=== PATIENT | male | born 1950 | race Caucasian/White ===

== ENCOUNTER 2019-05-19 16:40 | Emergency (ER) | payer MEDICARE, SELFPAY ==
[2019-05-19] VITALS (33 sets, daily range): BP systolic 111–157; BP diastolic 72–116; PULSE 43–103; RESP 13–20; TEMP 37.1; O2SAT 97–100
[2019-05-19] MEDS: diphenhydrAMINE 50 MG/ML VIAL (17:11)
--- NOTE | 2019-05-19 17:13 | W.ED.GENAD ---
Discharge Plan Disposition Patient Disposition: [facility] Condition: Stable Discharge Details Chief Complaint: Allergic Clinical Impression: Symptomatic bradycardia, Anaphylactic reaction to bee sting Primary Care Provider: Samy Resendez ED Provider: Padmini Aguiar Home Meds and New Rx's Prescriptions: No Action multivitamin [Daily Multi-Vitamin] 1 EACH tablet 1 ea PO DAILY Qty: 1 RF: 0 ginkgo biloba leaf extract 120 MG capsule 120 mg PO DAILY Qty: 1 RF: 0 omega 3-baq-hlb-fish oil [Fish Oil] 1 EACH capsule,delayed release(DR/EC) 1 ea PO DAILY Qty: 1 RF: 0 echinacea 380 MG capsule 1 tab PO DAILY RF: 0 ginkgo biloba 40 MG tablet 1 tab PO DAILY RF: 0 saw palmetto 160 MG capsule 1 tab PO DAILY RF: 0 multivitamin 1 EACH capsule 1 cap PO DAILY RF: 0 obgsc-9j-ghg-epa-fish oil 1 EACH capsule,delayed release(DR/EC) 1 tab PO DAILY RF: 0 amoxicillin 500 MG capsule 500 mg PO Q8H Qty: 12 RF: 0 Discharge Data Discharge Date/Time-TO BE ENTERED AT DEPARTURE: 05/19/19 19:35 Medical Decision Making 68-year-old male with no diagnosed past medical history who presents with allergic reaction after stung by 6 piece just prior to arrival. Complaining of upper lip swelling as well as rash to torso, arms and legs. Denies any nausea vomiting or shortness of breath. Heart rate on arrival 70s, shortly after arrival heart rate decreased to 36. Patient placed on monitor. QRS appeared wide. Heart rate occasionally increased to 70s. Patient was given a dose of atropine. EKG obtained which noted a rate of 77 and right bundle branch block. Compared to previous EKG NOVEMBER 2017, QRS morphology appears different throughout and appears widened mainly in V1 V2. Patient admitted to feeling weak and shaky. He remained awake and able to answer questions. Review of easy visit note from November 2017 noted that patient had asymptomatic bradycardia. As patient complains of intermittent dizziness with exertion over the past 2 weeks, suspect the patient has been bradycardic for some time now, and his current symptoms may have been induced or bradycardia worsened by an anaphylactic reaction peer Patient moved to room 2. 2 large-bore IVs placed. We will do stat cardiac work-up, portable chest x-ray. Patient also given Solu-Medrol, Benadryl. 1800 --heart rate decreased again to 30s. Blood pressure stable. Patient was given another dose of atropine. Heart rate increased to 90s and 100s and occasionally had more dips down into the 30s and 40s. His blood pressure has remained stable and asymptomatic. Labs reviewed and unremarkable. Chest x-ray negative. Case discussed with [facility] cardiology -do not recommend any additional epinephrine or atropine unless patient becomes hypotensive or significantly symptomatic. With initial discussion with [facility], there were no appropriate beds available. They called back shortly after and they were able to make a bed available. Accepting physician Dr. Fletcher. Patient noted to have multiple episodes of rate variation from 30s to 70s. When heart rate in the 30s, he does admit to feeling slightly dizzy. Blood pressure has remained stable. Medical Records Medical records reviewed: Yes I reviewed the patient's medical records. Imaging Data Radiologic Study: Radiologist's impression: XR Chest, 1 View EXAM DATE/TIME: 05/19/2019 5:13 PM CLINICAL HISTORY: 68 years old, male; Patient HX: Bradycardia S/P bee sting. TECHNIQUE: Imaging protocol: XR of the chest, 1 view. COMPARISON: No relevant prior studies available. FINDINGS: Lungs: Unremarkable. No consolidation. Pleural space: Unremarkable. No pleural effusion. No pneumothorax. Heart/Mediastinum: Unremarkable. No cardiomegaly. Bones/joints: Unremarkable. IMPRESSION: No acute findings. Lab Data Lab results reviewed: Yes I reviewed the patient's lab results. Laboratory Tests Range/Units 05/19/19 05/19/19 17:25 17:25 WBC (4.4-10.8) k/cumm 5.83 RBC (4.50-6.00) m/cumm 5.22 Hgb (13.5-17.5) g/dL 17.2 Hct (40.0-50.0) % 49.4 MCV (80-95) fL 94.6 MCH (27.0-33.0) pg 33.0 MCHC (32.0-36.0) g/dL 34.8 RDW (11.8-14.1) % 12.2 Plt Count (130-400) x1000/uL 205 MPV (8.0-11.0) fL 9.2 Immature Gran % 0.2 Neutrophils % 36.9 Lymphocytes % 49.9 Monocytes % 11.7 Eosinophils % 1.0 Basophils % 0.3 Absolute Neutrophils (1.2-6.7) k/cumm 2.15 Absolute Lymphocytes (1.2-3.4) k/cumm 2.91 Absolute Monocytes (0.11-0.7) k/cumm 0.68 Absolute Eosinophils (0.0-0.7) k/cumm 0.06 Absolute Basophils (0.0-0.2) k/cumm 0.02 Sodium (136-145) mmol/L 137 Potassium (3.5-5.1) mmol/L 3.7 Chloride (98-107) mmol/L 100 Carbon Dioxide (21.0-32.0) mmol/L 23.2 Anion Gap (3-11) mmol/L 13.8 H BUN (7-18) mg/dL 18 Creatinine (0.70-1.30) mg/dL 1.03 Estimated GFR/1.73 m2 (mL/min/1.73m2) >= 60.00 Glucose (70-100) mg/dL 89 Calcium (8.5-10.1) mg/dL 8.7 Magnesium (1.8-2.4) mg/dL 1.9 Total Bilirubin (0.2-1.0) mg/dL 1.0 AST (15-37) U/L 25 ALT (12-78) U/L 26 Alkaline Phosphatase (46-116) U/L 50 Troponin I (0.00-0.06) ng/mL < 0.05 Total Protein (6.4-8.2) g/dL 7.6 Albumin (3.4-5.0) g/dL 2.5 L ECG Data Attestation: I personally reviewed and interpreted this ECG (s) as follows: Interpretation: Rate of 77, sinus, right bundle branch block. No acute ST elevation or depression. QRS 216 which is increased from previous EKG and a different morphology to the QRS noted in lead II, 3, aVF V4, V5 and V6. Previous EKG November 2017 noted a rate of 44 with a QRS of 128 and and previous right bundle branch block. HPI General Mode of arrival: ambulatory. Date/Time Provider Initiated Documentation: 08/22/19 17:10. Limitations to Documentation: no limitations. Information obtained by: patient. HPI Narrative: Patient is a 68-year-old male with no diagnosed past medical history who presents for evaluation status post bee sting. Patient states he was done approximately 30 minutes ago by 6 hornets or wasps on his right back. He states shortly after he developed upper lip swelling and hives. He denies any vomiting or shortness of breath. Patient also states that he has had intermittent dizziness over the past few weeks that is occurred with exertion. He states he has not seen any medical provider for this. Related Data Home Medications Medication Instructions Recorded Confirmed amoxicillin 500 mg PO Q8H #12 capsule 12/19/17 12/31/17 echinacea 1 tab PO DAILY 12/19/17 12/31/17 ginkgo biloba 1 tab PO DAILY 12/19/17 12/31/17 multivitamin 1 cap PO DAILY 12/19/17 12/31/17 nkbly-9q-jcy-epa-fish oil 1 tab PO DAILY 12/19/17 12/31/17 saw palmetto 1 tab PO DAILY 12/19/17 12/31/17 ginkgo biloba leaf extract 120 mg PO DAILY #1 01/01/18 multivitamin [Multi-Vitamin Daily] 1 ea PO DAILY #1 01/01/18 omega 3-klm-qvd-fish oil [Fish Oil 1 ea PO DAILY #1 01/01/18 1,200 Mg Softgel] Previous Rx's Medication Instructions Recorded amoxicillin 500 mg PO Q8H #12 capsule 12/19/17 Allergies Allergy/AdvReac Type Severity Reaction Status Date / Time cephalexin Allergy Unverified 12/31/17 12:06 General Stated Complaint: Allergic DAKOTA: 2 Review of Systems Review of Systems All systems reviewed & are unremarkable except as noted in HPI and below Constitutional Reports as per HPI, Denies chills and Denies fever(s) Eyes Denies blurry vision ENT Denies dizziness, Denies sore throat and Denies throat swelling Cardiovascular Denies chest pain and Denies dyspnea Respiratory Denies cough and Denies dyspnea Gastrointestinal Denies abdominal pain, Denies diarrhea and Denies vomiting Genitourinary Denies hematuria and Denies dysuria Musculoskeletal Denies back pain and Denies numbness Integumentary/Breasts Denies lesions and Denies rash Neurologic Denies dizziness, Denies focal weakness and Denies numbness Allergic/Immunologic Denies throat swelling [facility], [facility] Medical History No significant past medical history (Acute) Surgical History No significant past surgical history (Acute) Family History Mother No problems noted. Father No problems noted. Sister No problems noted. Sister No problems noted. Brother No problems noted. Daughter No problems noted. Daughter No problems noted. Daughter No problems noted. Daughter No problems noted. Social History Smoking/Tobacco Use Status: Former Tobacco Use Substance use type: marijuana Do you feel safe in your relationship?: Yes Exam Const General: cooperative and no acute distress Orientation: alert and awake HENMT Head: normal to inspection Ears: hearing grossly normal bilaterally, external ears normal and TM's normal bilaterally General nose exam: external nose normal Face and sinus: normal facial exam Mouth: oral mucosae normal Teeth and gingiva: dentition normal Throat: posterior oropharynx normal Eyes General: appearance normal, both eyes and all related structures Eyelids: eyelids normal EOM: EOM intact bilaterally Neck Neck: normal visual inspection Lymphatic: no lymphadenopathy noted Chest Chest: normal inspection of the chest Resp Effort & Inspection: normal respiratory effort and able to speak in complete sentences Auscultation: clear to auscultation bilaterally Cardio Rate: regular rate Rhythm: regular rhythm GI Inspection: normal to inspection Palpation: soft, not firm, no guarding, no hepatosplenomegaly, no masses and nontender Auscultation: normal bowel sounds Back/Spine/Pelvis Back: no CVA tenderness Skin General skin exam: no rashes or lesions noted Neuro General: alert and awake Cognition: normal cognition Speech: speech normal Gait: normal gait Motor: muscle tone normal throughout Sensory Exam: no sensory deficits noted Extrem General: normal to inspection, full ROM and normal capillary refill Psych Appearance: grossly normal Mental Status: mental status grossly normal Speech and Movement: speech and movement normal Affect: normal affect Thought Process: normal Course Vital Signs Temperature 98.8 F 05/19/19 17:04 Pulse 47 L 05/19/19 17:04 Respiratory Rate 16 08/22/19 17:04 Blood Pressure 147/99 H 05/19/19 17:04 Pulse Oximetry 100 05/19/19 17:04 Temperature 98.8 F 05/19/19 17:04 Temperature Source Temporal Artery Scan 05/19/19 17:04 Pulse 47 L 05/19/19 17:04 Respiratory Rate 16 05/19/19 17:04 Respiratory Effort Non-Labored 05/19/19 17:07 Respiratory Pattern Normal 05/19/19 17:07 Blood Pressure 147/99 H 05/19/19 17:04 Pulse Oximetry 100 05/19/19 17:04 Oxygen Delivery Method Room Air 05/19/19 17:04 Oxygen Flow Rate 0 05/19/19 17:04 Pain Level 6 05/19/19 17:04 Critical Care Time Critical Care Time: Yes Total Critical Care Time: 40
--- NOTE | 2019-05-19 17:15 | DI.RAD_ITS ---
SYMPTOM/DIAGNOSIS: BRADYCARDIA, S/P BEE STING, R/O ACUTE DISEASE CHEST: Portable AP view. No priors. The heart is normal in size. The lungs are clear. The mediastinal structures and pleura appear intact. CONCLUSION: Normal chest.
[2019-05-19] MEDS: EPINEPHrine 0.3 MG KIT IM (17:20)
[2019-05-19] MEDS: Atropine 1 MG/10 ML SYRINGE 0.5 MG IVP ×2 (17:20→17:56)
[2019-05-19] MEDS: methylPREDNISolone SUCC 125 MG VIAL (17:20)
[2019-05-19] MEDS: FAMOTIDINE 20 MG/50 ML BAG (17:22)
--- NOTE | 2019-05-19 17:30 | NUR.NOTE ---
Nursing Note: IV access established in both AC's with large bore IV catheters. 20G right AC and 20G left AC. Blood drawn and sent to lab
--- NOTE | 2019-05-19 17:33 | DI.VRAD_ITS ---
EXAM: XR Chest, 1 View EXAM DATE/TIME: 05/19/2019 5:13 PM CLINICAL HISTORY: 68 years old, male; Patient HX: Bradycardia S/P bee sting. TECHNIQUE: Imaging protocol: XR of the chest, 1 view. COMPARISON: No relevant prior studies available. FINDINGS: Lungs: Unremarkable. No consolidation. Pleural space: Unremarkable. No pleural effusion. No pneumothorax. Heart/Mediastinum: Unremarkable. No cardiomegaly. Bones/joints: Unremarkable. IMPRESSION: No acute findings. Dictated and Authenticated by: Lion Kirkland MD. Ordering:TANNER Washington MD
[2019-05-19 17:46] LABS: Abs Immature Grans 0.01 k/cumm (0.0-0.09); Absolute Basophil Count 0.02 k/cumm (0.0-0.2); Absolute Eosinophil Count 0.06 k/cumm (0.0-0.7); Absolute Lymphocyte Count 2.91 k/cumm (1.2-3.4); Absolute Monocyte Count 0.68 k/cumm (0.11-0.7); Absolute Neutrophil Count 2.15 k/cumm (1.2-6.7); Basophils % 0.3; HCT 49.4 % (40.0-50.0); HGB 17.2 g/dL (13.5-17.5); Immature Grans % 0.2; Lymphocytes % 49.9; Mean Corp. HGB Concentration 34.8 g/dL (32.0-36.0); Mean Corpuscular Volume 94.6 fL (80-95); Mean Platelet Volume 9.2 fL (8.0-11.0); Monocytes % 11.7; Neutrophils % 36.9; Platelet Count 205 x1000/uL (130-400); RBC 5.22 m/cumm (4.50-6.00); RBC Distribution Width 12.2 % (11.8-14.1); White Blood Cell Count 5.83 k/cumm (4.4-10.8)
[2019-05-19 18:01] LABS: ALT 26 U/L (12-78); AST 25 U/L (15-37); Albumin 2.5 g/dL (3.4-5.0); Alkaline Phosphatase 50 U/L (46-116); Anion Gap 13.8 mmol/L (3-11); BUN 18 mg/dL (7-18); CO2 23.2 mmol/L (21.0-32.0); CREATININE 1.03 mg/dL (0.70-1.30); Calcium 8.7 mg/dL (8.5-10.1); Chloride 100 mmol/L (98-107); Glucose 89 mg/dL (70-100); Magnesium 1.9 mg/dL (1.8-2.4); Potassium 3.7 mmol/L (3.5-5.1); Sodium 137 mmol/L (136-145); Total Protein 7.6 g/dL (6.4-8.2)
[2019-05-19 18:02] LABS: Troponin I < 0.05 ng/mL (0.00-0.06)
--- NOTE | 2019-05-19 20:03 | NUR.NOTE ---
Attempted to call report to [facility], spoke to BARNEY Boles who states she will return call.Nursing Note:
--- NOTE | 2019-05-19 20:13 | NUR.NOTE ---
Telephone report given to BARNEY Boles at [facility]. Nursing Note:
== END 2019-05-19 19:35 | disposition short-term general hospital (02) ==
PROVIDERS: Emergency Provider Physician Assistant; PCP Family Medicine
DX: T63.461A Toxic effect of venom of wasps, accidental (unintentional), initial encounter (principal); T78.2XXA Anaphylactic shock, unspecified, initial encounter; R00.1 Bradycardia, unspecified; R21 Rash and other nonspecific skin eruption; Z91.030 Bee allergy status
CPT/HCPCS: 80053; 93005; 96365; 96366; 96372; 96375; 96376; 99285; 71045; 83735; 84484; 85025; 93010; J0171; J1200; J2930

== ENCOUNTER 2019-07-11 00:53 | Emergency (ER) | payer MEDICARE, SELFPAY ==
[2019-07-11 01:14] VITALS: BP 168/92; PULSE 55; RESP 14; TEMP 36.8; O2SAT 96
--- NOTE | 2019-07-11 01:16 | ED.GENADUL_ITS ---
Discharge Plan Disposition Patient Disposition: HOME Condition: Stable Discharge Details Chief Complaint: Chest Pain Clinical Impression: Pneumothorax on left, Left rib fracture Primary Care Provider: Samy Resendez ED Provider: Christiano Hedrick Home Meds and New Rx's Prescriptions: New oxycodone 5 mg tablet 5 mg PO Q6H PRN (Reason: pain) Qty: 12 RF: 0 Continued epinephrine [EpiPen 2-Hang] 0.3 mg/0.3 mL auto-injector 0.3 mg IM ONCE Qty: 2 RF: 2 multivitamin [Daily Multi-Vitamin] 1 EACH tablet 1 ea PO DAILY Qty: 1 RF: 0 Discharge Instructions Instructions: Rib Fracture (ED) Additional Instructions: you should be contacted with an appointment with general surgery if you have severe worsening of pain or difficulty breathing return to the emergency department you can take 1000mg tylenol and 600mg ibuprofen every 6 hours for pain as needed Medical Decision Making 69 yo male who had [place] [facility] [place] due to heart block and had negative stress testing comes in with complaints of chest pain. He has no prior hx of [place], stent or bypassing per pt. He states he went to bed feeling well and then woke up with sharp left sided chest pain in the mid axillary line that is worse with deep breathing. He does have clear lungs on exam and denie cough or fevers. ECG shows no ischemic findings, will send troponin. Will obtain CTA to eval for PE given pleuritic nature of his chest pain and moderate wells score labs unremarkable, CTA shows no pe or dissection but does have left 7th rib fracture with very small ptx per vrad. He now remembers that he fell while walking up a hill He is sleeping on reassessment and only has pain with deep breaths. I recommended the patient either be admitted for observation or stay here and have f/u xray but he would rather be d/c'd and return if his pain worsens or has more shortness of breath. He understands the significance of his imaging results and the possibliity of it becoming larger and potentially causing or disablity and has the capacity to make his own decisions. I did speak with Dr. Schwarz from general surgery who states she has sent people with small ptx's from trauma home but would want to follow up with him this week. Pt understands he needs to return to the ED immediately if worsening pain or shortness of breath Differential Diagnosis Differential Diagnosis: acs, ptx, pe Medical Records Medical records reviewed: Yes I reviewed the patient's medical records. Imaging Data Radiologic Study: Attestation: I personally reviewed and interpreted this imaging study as follows: Imaging: CT Scan Radiologist's impression: IMPRESSION: 1. Left seventh rib fracture. Mild subcutaneous emphysema left lateral chest wall. 2. Less than 5% left pneumothorax. Lab Data Lab results reviewed: Yes I reviewed the patient's lab results. ECG Data Attestation: I personally reviewed and interpreted this ECG (s) as follows: Prior ECG tracings: not available for review Interpretation: sinus rhythm, rate of 60, pr 218, no acute st t wave ischemic findings HPI General Mode of arrival: ambulatory . Date/Time Provider Initiated Documentation: 07/11/19 01:03 . Limitations to Documentation: no limitations . Information obtained by: patient . History of Present Illness 69 year old M presents to the emergency department with the chief complaint of chest pain, described as severe, Quality is described as sharp, Patient started experiencing this hour(s) (1) and it has been constant. No relieving factors improve symptom(s), Other factors that worsen symptoms (deep breaths) . Patient did receive the following treatments prior to arrival, none Related Data Home Medications Medication Instructions Recorded Confirmed multivitamin [Daily Multi-Vitamin] 1 ea PO DAILY #1 01/01/18 07/11/19 epinephrine 0.3 mg/0.3 mL 0.3 mg IM ONCE #2 each 06/20/19 07/11/19 injection, auto-injector oxycodone 5 mg PO Q6H PRN #12 tab 07/11/19 Previous Rx's Medication Instructions Recorded epinephrine 0.3 mg/0.3 mL 0.3 mg IM ONCE #2 each 06/20/19 injection, auto-injector oxycodone 5 mg PO Q6H PRN #12 tab 07/11/19 Allergies Allergy/AdvReac Type Severity Reaction Status Date / Time bee venom protein (honey bee) Allergy Mild swelling Verified 06/20/19 10:59 of the upper lip. cephalexin Allergy Unverified 06/20/19 10:58 General DAKOTA: 2 Review of Systems Review of Systems ROS Unobtainable: All systems reviewed & are unremarkable except as noted in HPI and below Constitutional Constitutional: Denies chills, Denies fever(s) and Denies weakness ENT Ears, Nose, Mouth, and Throat: Denies change in voice Gastrointestinal Gastrointestinal: Denies abdominal pain, Denies nausea and Denies vomiting Integumentary/Breasts Skin/Breast: Denies rash Neurologic Neurologic: Denies weakness Psychiatric Psychiatric: Denies depression [facility] Medical History (Updated 06/20/19 @ 11:17 by Samy Resendez) Lyme disease (Acute) No significant past medical history (Acute) Surgical History No significant past surgical history (Acute) Social History Smoking/Tobacco Use Status: Former Tobacco Use Alcohol Intake: current Alcohol Intake frequency: 0-2 drinks per day Alcohol type: wine Substance use type: marijuana Do you feel safe at home: Yes Do you feel safe in your relationship?: Yes Exam Const General: other (appears in pain) Orientation: alert HENMT Head: normal to inspection Ears: external ears normal General nose exam: external nose normal Mouth: moist mucous membranes Eyes General: appearance normal, both eyes and all related structures Neck Neck: normal visual inspection Resp Effort & Inspection: normal respiratory effort and able to speak in complete sentences Cardio Rate: regular rate Skin General skin exam: no rashes or lesions noted Neuro General: alert and oriented x3 Extrem General: normal to inspection Psych Mental Status: mental status grossly normal
[2019-07-11 01:26] VITALS: RESP 14
[2019-07-11 01:42] LABS: Abs Immature Grans 0.01 k/cumm (0.0-0.09); Absolute Basophil Count 0.01 k/cumm (0.0-0.2); Absolute Eosinophil Count 0.04 k/cumm (0.0-0.7); Absolute Lymphocyte Count 1.52 k/cumm (1.2-3.4); Basophils % 0.2; Eosinophils % 0.6; HCT 43.2 % (40.0-50.0); HGB 15.4 g/dL (13.5-17.5); Immature Grans % 0.2; Lymphocytes % 23.8; Mean Corp. HGB Concentration 35.6 g/dL (32.0-36.0); Mean Corpuscular Hemoglobin 33.8 pg (27.0-33.0); Mean Corpuscular Volume 94.7 fL (80-95); Mean Platelet Volume 8.2 fL (8.0-11.0); Monocytes % 7.8; Neutrophils % 67.4; Platelet Count 220 x1000/uL (130-400); RBC 4.56 m/cumm (4.50-6.00); RBC Distribution Width 12.6 % (11.8-14.1); White Blood Cell Count 6.38 k/cumm (4.4-10.8)
[2019-07-11 01:54] LABS: ALT 22 U/L (16-63); AST 27 U/L (15-37); Albumin 4.3 g/dL (3.4-5.0); Alkaline Phosphatase 56 U/L (46-116); Anion Gap 11.7 mmol/L (3-11); BUN 12 mg/dL (7-18); Bilirubin, Total 0.9 mg/dL (0.2-1.0); CO2 26.3 mmol/L (21.0-32.0); CREATININE 0.88 mg/dL (0.70-1.30); Calcium 7.9 mg/dL (8.5-10.1); Chloride 97 mmol/L (98-107); Glucose 103 mg/dL (70-100); Potassium 3.9 mmol/L (3.5-5.1); Sodium 135 mmol/L (136-145); Total Protein 7.7 g/dL (6.4-8.2)
[2019-07-11 01:59] LABS: INR 1.1 (0.9-1.1); Lipase 187 U/L (73-393); PTT Activated 29.8 sec (21.0-31.4); Prothrombin Time 10.7 sec (9.3-11.0)
[2019-07-11 02:00] LABS: Troponin I < 0.05 ng/mL (0.00-0.06)
[2019-07-11] MEDS: Omnipaque 350 MG/ML 100 ML BTL IJ (02:13)
--- NOTE | 2019-07-11 02:15 | DI.CT_ITS ---
EXAM: CT CHEST PE CTA CLINICAL HISTORY: pleuritic left sided chest pain. TECHNIQUE: COMPARISON: No exams were available for comparison FINDINGS: CT angiography of the chest was performed with intravenous infusion of 100 cc of Omnipaque 350. Imag es obtained through the upper abdomen show unremarkable appearance of visualized portions of liver sp campos adrenals and kidneys as well as the pancreas. There is a transvenous cardiac pacemaker in position. There are apparent pulmonary bowl I or cyst cy sts on the right. There is a small left pneumothorax. There is a left 7th rib fracture laterally wi th associated slight subcutaneous emphysema. No hemo thorax. No vascular injury. No pulmonary embo lic disease. Ectasias of ascending thoracic aorta noted at 43 millimeters. Tracheobronchial tree ap pears intact. No adenopathy. IMPRESSION: Left 7th rib fracture with associated subcutaneous emphysema and small left pneumothorax. No other s ignificant acute findings. Ectasia of ascending aorta at 43 millimeters
--- NOTE | 2019-07-11 02:20 | NUR.NOTE ---
Pt reports intermittent left chest pain x several hours, worse when taking a deep breath and moving. Denies recent travel. Reports associated SOB. paced on monitor. #20 LAC, labs drawn. Pt offered fentanyl prior to CT, declined, i want to try and tough it out. returns from CT, again offered pain medication, declined. awaiting CT results/
--- NOTE | 2019-07-11 03:10 | DI.VRAD_ITS ---
PROCEDURE INFORMATION: Exam: CT Angiography Chest With Contrast Exam date and time: 07/11/2019 2:01 AM Clinical history: 69 years old, male; Other: Pleuritic chest pain; Prior surgery; Surgery date: 1-6 months; Surgery type: Pacemaker in April; Patient HX: Left sided chest pain, pain with deep breath and movement TECHNIQUE: Imaging protocol: Computed tomographic angiography of the chest with intravenous contrast. 3D rendering: MIP reconstructed images were created and reviewed. Radiation optimization: All CT scans at this facility use at least one of these dose optimization techniques: automated exposure control; mA and/or kV adjustment per patient size (includes targeted exams where dose is matched to clinical indication); or iterative reconstruction. Contrast material: OMNIPAQUE 350; Contrast volume: 66 ml; Contrast route: IV RAC; COMPARISON: CR XR PORTABLE CHEST AP 05/19/2019 5:14 PM FINDINGS: Pulmonary arteries: Normal. No pulmonary emboli. Aorta: Unremarkable. No aortic aneurysm. No aortic dissection. Lungs: Mild bibasilar atelectasis. Several subpleural blebs or bulla both lung bases, largest at the right lower lobe. Pleural space: Less than 5% left pneumothorax. Minimal left pleural effusion. Heart: Coronary artery calcifications noted. Lymph nodes: Unremarkable. No enlarged lymph nodes. Bones/joints: Left seventh rib fracture. Mild subcutaneous emphysema left lateral chest wall. Soft tissues: See Bones/joints Finding. IMPRESSION: 1. Left seventh rib fracture. Mild subcutaneous emphysema left lateral chest wall. 2. Less than 5% left pneumothorax. Results discussed with Christiano Hedrick at 07/11/2019 3:07 AM EDT. Dictated and Authenticated by: Ezequiel Rai MD. Ordering:BOSTON Alvarado MD
[2019-07-11 03:16] VITALS: BP 121/75; PULSE 63; RESP 20; O2SAT 94
--- NOTE | 2019-07-11 03:25 | NUR.NOTE ---
Nursing NoteFAXED REFERAL ON :
[2019-07-11] MEDS: Lidocaine 5% Patch 1 PATCH TP (03:36)
[2019-07-11] MEDS: oxyCODONE 5 MG TAB PO (03:46)
--- NOTE | 2019-07-11 03:51 | NUR.NOTE ---
IS teaching with return demonstration. Med a/o. Discharge instructions reviewed with verbal understanding. aware to f/u with gen surgery. Ambulated to exit with steady gait.
== END 2019-07-11 03:50 | disposition home or self-care (01) ==
LOC: ER 03:52
PROVIDERS: Emergency Provider Emergency Medicine; PCP Family Medicine
DX: S27.0XXA Traumatic pneumothorax, initial encounter (principal); S22.32XA Fracture of one rib, left side, initial encounter for closed fracture; X58.XXXA Exposure to other specified factors, initial encounter; Z95.0 Presence of cardiac pacemaker
CPT/HCPCS: 36415; 71275; 80053; 83690; 93005; 96374; 99285; 84484; 85025; 85610; 85730; 93010; J3490

== ENCOUNTER → 2019-07-15 10:31 | Outpatient (BNVA) | payer MEDICARE, SELFPAY | PROVIDERS: PCP Family Medicine; Referring Provider Family Medicine; Visit Provider Surgery | DX: S22.32XA Fracture of one rib, left side, initial encounter for closed fracture (principal); S27.0XXA Traumatic pneumothorax, initial encounter; W01.0XXA Fall on same level from slipping, tripping and stumbling without subsequent striking against object, initial encounter | CPT/HCPCS: 99202; 99213 ==

== ENCOUNTER 2020-08-31 12:53 | Emergency (ER) | payer MEDICARE, SELFPAY ==
[2020-08-31 13:00] VITALS: BP 154/100; PULSE 55; RESP 18; TEMP 36.5; O2SAT 100
--- NOTE | 2020-08-31 13:10 | W.ED.GENAD ---
Discharge Plan Disposition Patient Disposition: AGAINST MEDICAL ADVICE Condition: Stable Discharge Details Clinical Impression: Popliteal artery embolism, right Primary Care Provider: Samy Resendez ED Provider: Astrid Nair Home Meds and New Rx's Prescriptions: No Action magnesium oxide 250 mg magnesium tablet 250 mg PO DAILY RF: 0 ginkgo biloba 40 mg tablet 40 mg PO DAILY RF: 0 vitamin B complex Tablet 1 tab PO DAILY RF: 0 turmeric 400 mg capsule 400 mg PO DAILY RF: 0 glucosamine-chondroitin 500-400 mg tablet 1 tab PO DAILY PRNRF: 0 Reishi Mushroom PO RF: 0 epinephrine [EpiPen 2-Hang] 0.3 mg/0.3 mL auto-injector 0.3 mg IM ONCE Qty: 2 RF: 2 multivitamin [Daily Multi-Vitamin] 1 EACH tablet 1 ea PO DAILY Qty: 1 RF: 0 Discharge Instructions Additional Instructions: Go directly to [facility] ER. Dr. Bajwa with vascular surgery and their team will evaluate you there. At this time you have opted to leave AGAINST MEDICAL ADVICE versus EMS transfer by ambulance to [facility] which I recommend that you do. Follow up with primary care provider in 3-5 days. Return to ED sooner if any worsening or concerns. Increase oral fluids. Referrals: Samy Resendez [Primary Care Provider] - Medical Decision Making 70-year-old male presents to the ER from EP office for posterior calf pain. This began on Thursday. 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 No evidence of DVT. He reports increased pain with walking, movement pain decreases with rest. He also notes that he has had very cold hands and cold feet to the touch. He states that his brother has had multiple aneurysms and multiple veins removed in his extremities. He denies any chest pain or shortness of breath. He does have a history of Raynaud's disease. Emphysema, pacemaker, bradycardia and Lyme disease. Basic labs ordered including CBC, CMP, PT/INR. 1316: [facility] [place] for vascular surgery consult. 1417: Spoke with Dr. Bajwa with vascular surgery at [facility] he recommends transfer ED to ED to evaluate patient transfer center to call me back as the ER is on a :Surge 2. 1439: Spoke once again with [facility] they are good to go to have patient seen in the ED by vascular surgery. Discussed plan with patient he was requesting to go POV versus EMS transfer. At this time I am strongly encouraging him to be transported by EMS which patient declines at this time. I discussed that this would result in an AMA disposition and I do instruct to go directly to [facility] ED which patient verbalizes understanding and is agreeable to. Patient was given transfer paperwork and report was called by staff nurse icu resource team to the ER. Patient requesting to leave AMA. The patient appears clinically sober and is not under the influence of any known substances. Discussed risks and benefits of transfer to [facility] by ambulance versus personal vehicle with patient. Patient verbalizes understanding of situation and the risks of leaving including worsening condition, developing disability, including but not limited to .Discussed results of labs and imaging, if they were performed and recommendations for further treatment and/or observation. The patient verbalizes understanding of the results discussed. Every effort was made to involve family if appropriate and situation discussed. At this time patient has opted to leave against medical advice. Patient is alert and oriented and has the capacity to make own decisions. HPI General Mode of arrival: ambulatory. Date/Time Provider Initiated Documentation: 08/31/20 13:10. Limitations to Documentation: no limitations. Information obtained by: patient. HPI Narrative: 70-year-old male presents to the ER from EP office for posterior calf pain. This began on Thursday. 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 No evidence of DVT. He reports increased pain with walking, movement pain decreases with rest. He also notes that he has had very cold hands and cold feet to the touch. He states that his brother has had multiple aneurysms and multiple veins removed in his extremities. He denies any chest pain or shortness of breath. He does have a history of Raynaud's disease. Emphysema, pacemaker, bradycardia and Lyme disease. Related Data Home Medications Medication Instructions Recorded Confirmed multivitamin [Daily Multi-Vitamin] 1 ea PO DAILY #1 01/01/18 08/31/20 epinephrine 0.3 mg/0.3 mL 0.3 mg IM ONCE #2 each 06/20/19 08/31/20 injection, auto-injector Reishi Mushroom PO 08/31/20 ginkgo biloba 40 mg tablet 40 mg PO DAILY tab 08/31/20 08/31/20 glucosamine-chondroitin 500 mg-400 1 tab PO DAILY PRN 08/31/20 08/31/20 mg tablet magnesium oxide 250 mg PO DAILY 08/31/20 08/31/20 turmeric 400 mg capsule 400 mg PO DAILY cap 08/31/20 08/31/20 vitamin B complex 1 tab PO DAILY 08/31/20 08/31/20 Previous Rx's Medication Instructions Recorded epinephrine 0.3 mg/0.3 mL 0.3 mg IM ONCE #2 each 06/20/19 injection, auto-injector Allergies Allergy/AdvReac Type Severity Reaction Status Date / Time bee venom protein (honey bee) Allergy Mild swelling Verified 08/31/20 13:11 of the upper lip. cephalexin Allergy Unverified 08/31/20 13:11 General Stated Complaint: Vascular [place]AK[place]: 2 Review of Systems Narrative: Constitutional: Negative for weight loss, alert and oriented, well groomed, normal body habitus, appears comfortable. HEENT: Denies trauma, headaches, blurry vision, nasal discharge, sore throat, trouble swallowing. Chest: Denies chest pain, palpitations, irregular rhythm, hypertension. Respiratory: Denies Shortness of breath, cough, hemoptysis. GI: Denies abdominal pain, nausea, vomiting, diarrhea, constipation. : Denies dysuria, hematuria, flank pain, rectal bleeding. Neuro: Denies dizziness, blurry vision, weakness, syncope, headache or facial numbness. Hematologic: Denies easy bruising, intolerance to heat or cold, hair loss. [facility], [facility] Medical History Aneurysm of right popliteal artery Bradycardia Emphysema of lung Lyme disease Pacemaker Pneumothorax, left Raynauds disease Rib fracture Thrombosis of right popliteal artery Surgical History No significant past surgical history Family History Mother No problems noted. Father No problems noted. Sister No problems noted. Sister No problems noted. Brother No problems noted. Daughter No problems noted. Daughter No problems noted. Daughter No problems noted. Daughter No problems noted. Social History Smoking/Tobacco Use Status: Former Tobacco Use Smoking risk assessment performed?: Yes Alcohol Intake: current Alcohol Intake frequency: 0-2 drinks per day Alcohol type: wine Drug use: Occasionally Substance use type: marijuana Do you feel safe at home: Yes Do you feel safe in your relationship?: Yes Exam Narrative Exam Narrative: Constitutional: Alert and oriented x3. Appears stated age. Normal body habitus. Head: Normocephalic, no trauma. Eyes: Pupils PERRLA, Red reflex noted, EOM's intact. Eyelids symmetrical without lesions, discharge, or swelling. ENT: Bilateral TM's WNL, External ear normal to inspection, no mastoid TTP, swelling, or erythema, Nasal turbinates WNL, no nasal discharge. Normal dentition, Posterior pharynx WNL, no exudate. Chest: RRR, Normal S1, S2, distal pulses intact. Resp: Lungs clear to auscultation bilaterally, no wheezes, rales, or rhonchi. Musculoskeletal: Normal gait, 5/5 strength to all four extremities. He does have some tenderness noted to the posterior popliteal fossa and proximal lateral calf dorsal pedal pulses are not palpable, was able to find faint posterior tibial pulses with Doppler. Skin: No suspicious rashes or lesions. Capillary refill less than 2 sec. Neurologic: Cranial nerves II-XII intact. Alert and oriented x 3. DTR's intact. Hematologic/Lymphatic: No ecchymosis, no lymphadenopathy. Course Vital Signs Vital signs: Vital Signs Temperature 36.5 C 08/31/20 13:00 Pulse 55 L 08/31/20 13:00 Respiratory Rate 18 08/31/20 13:00 Blood Pressure 154/100 H 08/31/20 13:00 Pulse Oximetry 100 08/31/20 13:00 Temperature 36.5 C 08/31/20 13:00 Temperature Source Temporal Artery Scan 08/31/20 13:00 Pulse 55 L 08/31/20 13:00 Respiratory Rate 18 08/31/20 13:00 Blood Pressure 154/100 H 08/31/20 13:00 Blood Pressure Position Sitting 08/31/20 13:00 Pulse Oximetry 100 08/31/20 13:00 Oxygen Delivery Method Room Air 08/31/20 13:00 Oxygen Flow Rate 0 08/31/20 13:00 Pain Level 2 08/31/20 13:00 Comment 08/31/20 13:00
[2020-08-31 13:28] LABS: Abs Immature Grans 0.01 10^3/uL (0.0-0.06); Absolute Basophil Count 0.03 10^3/uL (0.0-0.2); Absolute Eosinophil Count 0.08 10^3/uL (0.0-0.7); Absolute Lymphocyte Count 1.59 10^3/uL (1.2-3.4); Absolute Monocyte Count 0.72 10^3/uL (0.1-0.8); Absolute Neutrophil Count 3.25 10^3/uL (1.2-6.7); Basophils % 0.5; Eosinophils % 1.4; HCT 40.4 % (40.0-50.0); HGB 14.5 g/dL (13.5-17.5); Immature Grans % 0.2; MCH 33.9 pg (27.0-33.0); MCHC 35.9 % (32.0-36.0); MCV 94.4 fL (80-95); MPV 8.6 fL (8.0-11.0); Monocytes % 12.7; Neutrophils % 57.2; Nucleated RBC 0 %; Platelet Count 183 10^3/uL (130-400); RBC 4.28 10^6/uL (4.36-5.78); RDW 12.1 % (11.8-14.1); RDW-SD 42.5 fL; WBC 5.68 10^3/uL (4.4-10.8)
[2020-08-31 13:37] LABS: INR 1.1 (0.9-1.1); Prothrombin Time 10.8 sec (9.3-11.0)
[2020-08-31 13:47] LABS: ALT 37 U/L (16-63); AST 55 U/L (15-37); Alkaline Phosphatase 55 U/L (46-116); Anion Gap 8.2 mmol/L (3-11); BUN 13 mg/dL (7-18); Bilirubin, Total 1.1 mg/dL (0.2-1.0); CO2 25.8 mmol/L (21.0-32.0); CREATININE 0.88 mg/dL (0.70-1.30); Calcium 8.5 mg/dL (8.5-10.1); Chloride 97 mmol/L (98-107); Glucose 92 mg/dL (74-106); Magnesium 2.2 mg/dL (1.8-2.4); Potassium 3.8 mmol/L (3.5-5.1); Sodium 131 mmol/L (136-145); Total Protein 7.1 g/dL (6.4-8.2)
[2020-08-31 15:18] VITALS: BP 154/100; PULSE 55; RESP 18; TEMP 36.5; O2SAT 100
--- NOTE | 2020-08-31 15:25 | NUR.NOTE ---
Nursing Note: Called [facility], spoke with Glenn CORLEY and given report regarding pt's transfer and subsequent AMA. Pt travels with transfer paperwork including COBRA, per provider.
== END 2020-08-31 15:00 | disposition left against medical advice (07) ==
PROVIDERS: Emergency Provider Registered Nurse Emergency; PCP Family Medicine
DX: I74.3 Embolism and thrombosis of arteries of the lower extremities (principal); Z53.29 Procedure and treatment not carried out because of patient's decision for other reasons
CPT/HCPCS: 36415; 80053; 99285; 83735; 85025; 85610; 93971; 99284

== ENCOUNTER 2020-08-31 14:55 | Outpatient (CLI) | payer MEDICARE, SELFPAY ==
--- NOTE | 2020-08-31 09:00 | DI.US_ITS ---
EXAM: US LOWER EXTREMITY VENOUS RT CLINICAL HISTORY: Right calf pain, M79.661. TECHNIQUE: Lower extremity venous ultrasound performed using grayscale, color-flow, and spectral Do ppler analysis. COMPARISON: No exams were available for comparison FINDINGS: The common femoral, femoral and popliteal veins demonstrate normal compressibility, augmentation, and color Doppler. The posterior tibial veins are patent. No saphenous vein thrombosis or other superfi cial venous thrombosis is seen. No hematoma or Sauceda's cyst is seen. A popliteal artery aneurysm is noted which shows some mural thrombus. It measures 3.7 x 2.3 x 3.0 cm. IMPRESSION: Popliteal artery aneurysm. No evidence of DVT. DATA REPOSITORY:
== END 2020-08-31 15:15 ==
PROVIDERS: PCP Family Medicine; Visit Provider Nurse Practitioner Family
DX: I72.4 Aneurysm of artery of lower extremity (principal); M79.661 Pain in right lower leg
CPT/HCPCS: 93971

== ENCOUNTER 2020-10-23 03:14 | Outpatient (CLI) | payer MEDICARE, SELFPAY ==
[2020-10-24 12:31] LABS: COVID-19 RT-PCR UVMMC Result Negative (Negative)
== END 2020-10-23 03:34 ==
PROVIDERS: PCP Family Medicine; Visit Provider Surgery
DX: Z11.52 Encounter for screening for COVID-19 (principal); Z01.818 Encounter for other preprocedural examination
CPT/HCPCS: U0003

== ENCOUNTER 2021-03-19 09:27 | Outpatient (REF) | payer MEDICARE, SELFPAY ==
[2021-03-19 13:21] LABS: Bilirubin Negative (Negative); Blood Negative (Negative); Clarity Clear (Clear); Glucose Negative (Negative); Ketones Negative (Negative); Leukocyte Esterase Negative (Negative); Nitrite Negative (Negative); Urobilinogen 0.2 EU/dL (Up TO 0.2); pH 7.5 (5-8)
== END 2021-03-19 09:28 | disposition home or self-care (01) ==
LOC: LBN 09:27
PROVIDERS: PCP Family Medicine; Visit Provider Family Medicine
DX: N32.89 Other specified disorders of bladder (principal)
CPT/HCPCS: 81003

== ENCOUNTER 2021-07-17 03:52 | Outpatient (CLI) | payer MEDICARE, SELFPAY ==
[2021-07-17 10:41] LABS: Calculated LDL 80 mg/dL (<100); Cholesterol 188 mg/dL (<200); HDL Cholesterol 52 mg/dL (40-60); Triglyceride 283 mg/dL (<150)
[2021-07-17 17:43] LABS: PSA, Screening 5.9 ng/mL (0.0-4.5)
== END 2021-07-17 03:53 | disposition home or self-care (01) ==
LOC: LBO 03:52
PROVIDERS: PCP Family Medicine; Visit Provider Family Medicine
DX: I72.4 Aneurysm of artery of lower extremity; Z00.00 Encounter for general adult medical examination without abnormal findings; Z12.5 Encounter for screening for malignant neoplasm of prostate; D12.6 Benign neoplasm of colon, unspecified; Z80.42 Family history of malignant neoplasm of prostate
CPT/HCPCS: 36415; 80061; 84153

== ENCOUNTER 2021-11-06 01:40 | Outpatient (CLI) | payer MEDICARE, SELFPAY ==
[2021-11-06 22:26] LABS: PSA, Diagnostic 6.1 ng/mL (0.0-4.5)
== END 2021-11-06 01:41 | disposition home or self-care (01) ==
LOC: LBO 01:40
PROVIDERS: PCP Family Medicine; Visit Provider Family Medicine
DX: R97.20 Elevated prostate specific antigen [PSA] (principal)
CPT/HCPCS: 36415; 84153

== ENCOUNTER → 2022-01-24 08:16 | Outpatient (BNVA) | payer MEDICARE, SELFPAY | PROVIDERS: PCP Family Medicine; Referring Provider Family Medicine; Visit Provider Physical Therapy Assistant | DX: Z12.11 Encounter for screening for malignant neoplasm of colon (principal); Z86.010 Personal history of colon polyps; Z95.0 Presence of cardiac pacemaker ==

== ENCOUNTER 2022-02-21 09:52 | Day surgery (SDC) | payer MEDICARE, SELFPAY ==
--- NOTE | 2022-02-20 11:34 | W.COLOREPORT ---
Colonoscopy Report Date of procedure: 02/21/22 Pre-op diagnosis general: Adenomatous polyps Post-op diagnosis procedure note: other (Internal hemorrhoids/polyp/diverticular disease) Surgeon: Reema Alegria Anesthesia Type: General:No Airway Estimated blood loss (mL): 1 Pathology: other Complications: None Disposition: same day Prep: Miralax/Dulcolax Retraction Time: 10 mins Procedure Description: After informed consent was obtained the patient was taken to the procedure room and placed in a left decubitous position. Monitors were applied and a time out was done. The patients name, date of , procedure, allergies to medications and metal in their body was reviewed. The patient was then sedated. Once sedated and comfortable a rectal exam was done. External exam was normal. Internal exam revealed a normal sphincter tone and no palpable masses. The scope was then introduced and retrofelexed. Grade 1internal hemorrhoids were identified. The scope was then advanced to the cecum withoutdifficulty. The TI and appendiceal orifice were identified. The prep was BB PS to in all garner for a total of 6. The scope was then slowly retracted over 10 minutes back into the rectum. He had a flat .75cm adenomatous polyp at 90 cm. This is removed with a cold snare. All specimen is retrieved and no bleeding is noted. He has moderate diverticula confined to the sigmoid colon. There is no signs of active bleeding or infection. There are no AVMs visualized. The scope was removed and the patient was woken up and taken back to Same day surgery in stable condition. The patient tolerated the procedure well and there were no immediate complications. Follow up: The patient should follow up in 5-7 years, path pending,unless they develop changes in bowel habits or other new gastrointestinal complaints.
--- NOTE | 2022-02-20 11:35 | PDOC.DSDIS_ITS ---
Discharge Plan Disposition Patient Disposition: HOME Condition: Good Discharge Details Reason For Visit: colon scope Attending Provider: Reema Alegria Primary Care Provider: Blaire Delgado Home Meds and New Rx's Prescriptions: Continued vitamin B complex Tablet 1 tab PO DAILY Reishi Mushroom PO ginkgo biloba 40 mg tablet 40 mg PO Q2D Rx Instructions: give with meal/snack magnesium oxide 250 mg magnesium tablet 250 mg PO Q2D turmeric 400 mg capsule 400 mg PO Q7D aspirin 81 mg tablet,delayed release (DR/EC) 81 mg PO DAILY epinephrine [EpiPen 2-Hang] 0.3 mg/0.3 mL auto-injector 0.3 mg IM ONCE Qty: 2 2RF Rx Instructions: as a single dose; may repeat once multivitamin [Daily Multi-Vitamin] 1 EACH tablet 1 ea PO DAILY Qty: 1 sildenafil 100 mg tablet 50 mg PO DAILY PRN (Reason: sexual activity) Qty: 7 0RF Rx Instructions: administer 30 minutes to 4 hours before activity Discontinued polyethylene glycol 3350 17 gram/dose powder 238 g PO ONCE Qty: 238 0RF Rx Instructions: take per colonoscopy instructions bisacodyl [Dulcolax (bisacodyl)] 5 mg tablet,delayed release (DR/EC) 5 mg PO ONCE Qty: 4 0RF Rx Instructions: take per colonoscopy instructions Discharge Instructions Additional Instructions: DSU Colonoscopy Post- Op Instructions Instructions for Everyone who is given Anesthesia: For your safety, please do the following for the next twenty-four (24) hours: *Do Not operate a motor vehicle (car, truck, motorcycle, etc.) *Do Not drink alcoholic beverages or use any recreational drugs for the first 24 hours or while taking pain medications. The medications in your body may have a reaction that can be dangerous. *Do Not make any important decisions or sign any important papers. Findings: x1 small polyp diverticula-make sure you are moving your bowels on a regular basis and not straining to go to the bathroom Follow up: -My office will send a letter in 2 to 3 weeks time detailing as to what type of polyps they are and when we want you to repeat the colonoscopy. 1. No lifting over 20 pounds or strenuous activity for the first 24 hours after your procedure. After 24 hours there are no restrictions on your activity but you may feel fatigued for a few days. 2. After you arrive home you may have a light meal and return to your normal diet as you can tolerate it without feeling sick to your stomach. 3. You may have a bloated, gaseous feeling in your belly (abdomen) after a colonoscopy. Passing gas and belching will help. Walking or lying down on your left side with your knees flexed may relieve the discomfort. Call the office at [phone] (Office) or [phone] (Hospital) right away if you notice any of the following: a.Vomiting of blood or ?coffee ground stools?. b.Rectal bleeding 1Tbsp, blood clots or continuous bleeding. c.Severe belly (abdominal) pain. d.A hard distended belly (abdomen) and an inability to pass gas. 4. Please don?t expect to have a normal BM (bowel movement) for 2-3 days after your procedure. 5. If there are questions regarding the findings of your procedure, please contact your doctor 6. If you are unable to contact your doctor with a problem, contact the hospital at [phone]. 7. Continue all your regular medications unless directed otherwise. I understand the above instructions and have no questions. Signature of Patient or Adult Escort Name of Responsible Adult Escort Signature of Nurse Date/Time Activity:: See above Diet:: See above Discharge Orders Discharge Orders: Discharge Order (Routine); Ordered 02/20/22 Ordered By: Reema Alegria
[2022-02-21 10:51] VITALS: BP 130/84; PULSE 52; RESP 16; TEMP 36.5; O2SAT 100
[2022-02-21] MEDS: Lactated Ringers 1,000 ML 80 ML IV (11:23)
--- NOTE | 2022-02-21 11:33 | ANES.PREOP_ITS ---
General Info Date of Service Date Performed: 02/21/22 Height: 5 ft 9.5 in Weight: 72.4 kg Body Mass Index (BMI): 23.2 Surgical Procedure: Operation Date: 02/21/22 11:05 Proposed Procedure Side Surgeon rosario Alegria, DO Meds Allergies and Home Medications Allergies Allergy/AdvReac Type Severity Reaction Status Date / Time bee venom protein (honey bee) Allergy Mild swelling Verified 02/21/22 11:01 of the upper lip. cephalexin Allergy Verified 02/21/22 11:01 Home Medication Medication Instructions Recorded multivitamin (Daily Multi-Vitamin 1 ea PO DAILY ##1 01/01/18 tablet) epinephrine 0.3 mg/0.3 mL 0.3 mg (0.3 mL) IM ONCE 06/20/19 injection, auto-injector (EpiPen anaphylaxis #2 ea 2-Hang) Reishi Mushroom PO 08/31/20 vitamin B complex 1 tab PO DAILY 08/31/20 aspirin 81 mg tablet,delayed 81 mg PO DAILY 06/05/21 release ginkgo biloba 40 mg tablet 40 mg PO Q2D 06/05/21 magnesium oxide 250 mg PO Q2D 06/05/21 turmeric 400 mg capsule 400 mg PO Q7D 06/05/21 sildenafil 100 mg tablet 50 mg PO DAILY PRN sexual activity 07/12/21 #7 tabs Current Visit Medications: Current Medications Generic Name Dose Route Start Last Admin Trade Name Freq PRN Reason Stop Dose Admin Hyoscyamine Sulfate 0.125 mg 02/20/22 11:34 Hyoscyamine 0.125 Mg Sl/Oral/Chew SL DIRECTED PRN Ringer's Solution 1,000 mls @ 80 mls/hr 02/21/22 06:00 02/21/22 11:23 IV 02/25/22 23:59 80 mls/hr INFUSION RADHA Administration IV Miscellaneous Supplies 1 each 02/21/22 06:00 Iv Access IV 02/25/22 23:59 DIRECTED RADHA Ondansetron HCl 4 mg 02/20/22 11:34 Ondansetron 4 Mg/2 Ml Vial IVP Q4H PRN PRN Nausea / Vomiting Sodium Chloride 0 ml 02/21/22 06:00 Normal Saline Flush 10 Ml Syr IV 02/25/22 23:59 PRN PRN Sodium Chloride 0 ml 02/21/22 06:00 Normal Saline 10 Ml Vial IJ 02/25/22 23:59 DIRECTED PRN Sterile Water 0 ml 02/21/22 06:00 Water,Injection,Sterile 10 Ml Vial IJ 02/25/22 23:59 DIRECTED PRN PFSH Active Problems Active Problems: Problem Status Onset Code Emphysema of lung J43.9 Pacemaker Z95.0 Raynauds disease I73.00 Aneurysm of right popliteal artery I72.4 Employment problem Tubular adenoma of colon 07/19/09 D12.6 Elevated BP without diagnosis of hypertension R03.0 Elevated PSA, less than 10 ng/ml R97.20 COVID-19 ~10/17/21 U07.1 Medical History Medical History Bradycardia Cardiac pacemaker in situ Medtronic [id number] Indication: Sick sinus syndrome Last Interrogation: 11/19/21 Lyme disease Lyme disease Pneumothorax, left Rib fracture Thrombosis of right popliteal artery Medical History Comments:: Pacemaker placed 2019 at [facility], per pt. Surgical History Surgical History Status post cardiac pacemaker procedure (~2017) managed by [facility] Status post lumbar spinal fusion (~2010) Status post vascular bypass (~10/2020) to repair popliteal aneurysm - at [facility] Tobacco Smoking/Tobacco Use Status: Former Tobacco Use Alcohol Alcohol Intake: current Alcohol intake frequency: 3 or more drinks per day Alcohol type: beer, wine and hard liquor Substance Use Substance use: Occasionally Substance use type: marijuana Details: Pt reports last using marijuana 3 weeks ago. Vital Signs and Lab Results Vital Signs Most Recent Vital Signs in EMR: Most Recent Vital Signs Temp Pulse Resp BP Pulse Ox 36.5 C 52 L 16 130/84 100 02/21/22 10:51 02/21/22 10:51 02/21/22 10:51 02/21/22 10:51 02/21/22 10:51 Lab Results Blood Type / Crossmatch: No Data to Display Complete Blood Count: No Data to Display Complete Metabolic Panel: No Data to Display Liver Function Panel: No Data to Display Coagulation Panel: No Data to Display Cardiac Panel: No Data to Display Arterial Blood Gas: No Data to Display Venous Blood Gas: No Data to Display Pancreas Panel: No Data to Display Thyroid Panel: No Data to Display Infectious Disease: No Data to Display Blood Cultures: No Data to Display Toxicology Panel: No Data to Display Anesthesia Assessment and Plan Anesthesia History Personal History: No History of Anesthesia Complications Family History: No Family History of Anesthesia Complications Exercise Tolerance Exercise Tolerance: Metabolic Equivalents>4 Pertinent Negatives Pertinent Negatives: No Symptoms of GERD Cardiac & Pulmonary Exam Cardiac Exam: Normal S1/S2 Heart Sounds Pulmonary Exam: Clear Bilateral Breath Sounds Implantable Cardiac Device Does patient have a Pacemaker or an ICD?: Yes 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
[2022-02-21 11:38] VITALS: BMI 23.2
--- NOTE | 2022-02-21 12:04 | BOWEL_PTH ---
PATIENT: Isaiah Irizarry LOC: [facility] U#:[id number] AGE/SX: 71/M ROOM: RE02/21/[address]: Reema Alegria : 1950 BED: DIS: 02/21/2022 SPEC #: [id number] RECD: 02/21/22 12:41 STATUS: HILDA REQ #: [id number] SILVINA: 02/21/22 12:[address]: Reema Alegria DEPT: Surgical Specimen RECD BY: Mary Padilla ENTERED: 02/21/22 12:41 SP TYPE: Bowel OTHR DR: Blaire Delgado Tissues: 1 - BIOPSY BOWEL Procedures: GROSS AND MICRO LEVEL 4 Comments: [id number]
[2022-02-21 12:25] VITALS: BP 105/67; PULSE 52; RESP 16; TEMP 35.6; O2SAT 92
[2022-02-21 12:50] VITALS: BP 126/89; PULSE 59; RESP 18; TEMP 35.9; O2SAT 98
--- NOTE | 2022-02-21 12:55 | W.ANESPOSTOP ---
Postoperative Evaluation Date, Time and Location Date Performed: 02/21/22 Time Performed: 12:40 Patient Location: Day Surgery Unit Vital Signs Most Recent Imported Vital Signs: Most Recent Vital Signs Temp Pulse Resp BP Pulse Ox 35.9 C L 59 L 18 126/89 98 02/21/22 12:50 02/21/22 12:50 02/21/22 12:50 02/21/22 12:50 02/21/22 12:50 Pain Score Most Recent Pain Score: Most Recent Pain Score Pain Level 0 02/21/22 12:50 Assessment Mental Status: Awake (Alert & Oriented to Patient Baseline) Airway and Respiratory Function: Patent airway with normal (patient baseline) respiratory exam Cardiovascular Function: Hemodynamically Stable Hydration Status: Adequately Hydrated Nausea & Vomiting: No Nausea or Vomiting Pain: Pt. Denies Any Pain Peripheral Nerve Block: Patient did not receive a nerve block
== END 2022-02-21 13:23 | disposition home or self-care (01) ==
PROVIDERS: PCP Family Medicine; Visit Provider Surgery
PROC: 0DJD8ZZ Inspection of Lower Intestinal Tract, Via Natural or Artificial Opening Endoscopic (ICD-10-PCS; CPT 45378; principal; 2022-02-21 11:00)
DX: Z12.11 Encounter for screening for malignant neoplasm of colon (principal); K63.5 Polyp of colon; K57.30 Diverticulosis of large intestine without perforation or abscess without bleeding; K64.8 Other hemorrhoids; Z86.010 Personal history of colon polyps; J43.9 Emphysema, unspecified; Z95.0 Presence of cardiac pacemaker
CPT/HCPCS: 45385; 88305

== ENCOUNTER 2022-07-01 02:05 | Outpatient (CLI) | payer MEDICARE, SELFPAY | END 2022-07-01 02:06 | disposition home or self-care (01) | LOC: LBO 02:05 | PROVIDERS: PCP Family Medicine; Visit Provider Family Medicine | DX: R97.20 Elevated prostate specific antigen [PSA] (principal) | CPT/HCPCS: 36415; 84153 ==

== ENCOUNTER 2022-08-13 10:57 | Inpatient (IN) | payer MEDICARE, SELFPAY ==
[2022-08-13 11:02] VITALS: BP 132/81; PULSE 70
[2022-08-13 11:03] VITALS: BP 132/81; PULSE 63; RESP 20; TEMP 37; O2SAT 95
--- NOTE | 2022-08-13 11:09 | ED.GENADUL_ITS ---
Discharge Plan Disposition Patient Disposition: Admit to [facility] Condition: Stable Discharge Details Clinical Impression: Perforation of sigmoid colon due to diverticulitis Primary Care Provider: Blaire Delgado ED Provider: Ion Paniagua Home Meds and New Rx's Prescriptions: No Action vitamin B complex Tablet 1 tab PO DAILY Reishi Mushroom PO ginkgo biloba 40 mg tablet 40 mg PO Q2D Rx Instructions: give with meal/snack magnesium oxide 250 mg magnesium tablet 250 mg PO Q2D turmeric 400 mg capsule 400 mg PO Q7D aspirin 81 mg tablet,delayed release (DR/EC) 81 mg PO DAILY sildenafil (pulm.hypertension) 20 mg tablet 60 mg PO ONCE PRN (Reason: sexual activity) Qty: 30 0RF rosuvastatin 5 mg tablet 5 mg PO DAILY Qty: 90 3RF multivitamin [Daily Multi-Vitamin] Tablet 1 tab PO DAILY Qty: 1 tamsulosin 0.4 mg capsule 0.4 mg PO QHS Qty: 30 2RF epinephrine [EpiPen 2-Hang] 0.3 mg/0.3 mL auto-injector 0.3 mg IM ONCE Qty: 2 2RF Rx Instructions: as a single dose; may repeat once Medical Decision Making This is a 72-year-old gentleman, past medical history of BPH, presenting to the ER for lower abdominal pain for the past 2 days associate with mild nausea. Pain is severe, has not taken any medication for his symptoms. Denies fever, change of appetite, dysuria, diarrhea or constipation. Denies previous abdominal surgery. Clinically he does appear quite uncomfortable and does have reproducible discomfort across his suprapubic region and right lower quadrant. Plan is to obtain IV access, routine screening laboratory values including a lactate, give 4 mg IV morphine, and will obtain CT imaging. We will also obtain bladder scan for acute urinary retention, bladder scan 12 cc. Patient received some relief with the IV morphine. Lactate resulted at 2.1. Plan to obtain CT imaging of his abdomen and pelvis with IV contrast now that his renal function has resulted as unremarkable. He does have mild nonspecific leukocytosis of 11.83. Bilirubin is 2.3. LFTs are otherwise unremarkable including his lipase. He has no point tenderness over his right upper quadrant CT imaging resulted, sigmoid diverticulitis, concern for potential localized perforation. Blood cultures are pending Case discussed with surgery, Dr. Ross. Patient receiving 1 L IV fluid, recom mends initiating IV Zosyn, and he will come personally evaluate the patient in the ER for admission This documentation was generated using [employer] dictation system, please disregard any oddities of phrase or misspellings. Medical Records Medical records reviewed: Yes I reviewed the patient's medical records. Imaging Data Radiologic Study: Attestation: I personally reviewed and interpreted this imaging study as follows: Imaging: CT Scan Radiologist's impression: Exam(s) CT ABDOMEN PELVIS W EXAM: CT ABDOMEN PELVIS W CLINICAL HISTORY: suprapubic/RLQ pain, lactate 2.1. TECHNIQUE: Imaging Protocol: Axial computed tomography images with coronal and sagittal reformatted images were created and reviewed CONTRAST MATERIAL: Intravenous: Omnipaque 350 Contrast volume:100 ml Oral: no COMPARISON: CT CT CHEST PE CTA from 07/11/2019 FINDINGS: ABDOMEN: Lung Bases: Heart mildly enlarged. Pacemaker. Lungs show motion. Liver: Normal density. No measurable mass. Gallbladder and biliary tract: No radiodense calculus or dilation. Pancreas: Normal density, no abnormal calcifications or inflammatory process. Spleen: Normal. Kidneys: Normal size, contour and axis. No radiodense stones or obstructive uropathy. No masses seen. Adrenal glands: No masses seen. Abdominal Aorta: Abdominal portion non-dilated. Moderate atherosclerotic changes. PELVIS: Bladder: No gross wall thickening. No calculi.No focal mass. Bowel: Diverticulosis lower descending and sigmoid colon. Wall thickening with surrounding stranding in the fat at the sigmoid region consistent with diverticulitis. There appeared to be bubbles of air extending outside of the lumen versus large diverticulum. No drainable abscess. No obstruction . Appendix not seen. Peritoneal cavity: No ascites or focal collection. Bones: Hardware related to posterior fusion from L4 through S1. Degenerative disc changes. No compression fracture. Reproductive organs: Slightly enlarged prostate. Lymph nodes: Unremarkable. Impression: Sigmoid diverticulitis. Question of localized perforation versus large diverticulum. Findings were called to the emergency department provider. Lab Data Lab results reviewed: Yes I reviewed the patient's lab results. Labs: 08/13/22 13:26 Blood Blood Culture - Pending 08/13/22 13:26 Blood Blood Culture - Pending Laboratory Tests Range/Units 08/13/22 08/13/22 08/13/22 11:50 11:50 11:50 WBC (4.4-10.8) 10^3/uL 11.83 H RBC (4.36-5.78) 10^6/uL 4.72 Hgb (13.5-17.5) g/dL 15.8 Hct (40.0-50.0) % 45.1 MCV (80-95) fL 96 H MCH (27.0-33.0) pg 33.5 H MCHC (32.0-36.0) % 35.0 RDW (11.8-14.1) % 12.0 Plt Count (130-400) 10^3/uL 199 MPV (8.0-11.0) fL 8.5 Immature Gran % 0.3 Neutrophils % 83.5 Lymphocytes % 7.6 Monocytes % 8.2 Eosinophils % 0.1 Basophils % 0.3 Nucleated RBC % (0.0-0.3) % 0.0 Absolute Neutrophils (1.2-6.7) 10^3/uL 9.88 H Absolute Lymphocytes (1.2-3.4) 10^3/uL 0.90 L Absolute Monocytes (0.1-0.8) 10^3/uL 0.97 H Absolute Eosinophils (0.0-0.7) 10^3/uL 0.01 Absolute Basophils (0.0-0.2) 10^3/uL 0.04 VBG Lactate (0.6-1.4) mmol/L 2.1 H Sodium (136-145) mmol/L 135 L Potassium (3.5-5.1) mmol/L 4.1 Chloride (98-107) mmol/L 97 L Carbon Dioxide (21.0-32.0) mmol/L 28.6 Anion Gap (3-11) mmol/L 9.4 BUN (7-18) mg/dL 17 Creatinine (0.70-1.30) mg/dL 1.2 Est GFR (CKD-EPI 2020) (mL/min/1.73m2) 65.06 Glucose (74-106) mg/dL 115 H Calcium (8.5-10.1) mg/dL 9.1 Total Bilirubin (0.2-1.0) mg/dL 2.3 H AST (15-37) U/L 18 ALT (16-63) U/L 24 Alkaline Phosphatase (46-116) U/L 61 Total Protein (6.4-8.2) g/dL 8.2 Albumin (3.4-5.0) g/dL 4.3 Lipase (73-393) U/L 92 Sign Out No HPI General Mode of arrival: ambulatory . Date/Time Provider Initiated Documentation: 08/13/22 11:09 . Limitations to Documentation: no limitations . Information obtained by: patient . History of Present Illness 72 year old M presents to the emergency department with the chief complaint of abd pain, described as severe, with intensity rated at 10. Quality is described as stabbing and aching, and is localized to the abdomen (lower). Patient reports radiation to (Toward his scrotum, not into testicles). Patient started experiencing this day(s) (2) and it has been constant. No relieving factors improve symptom(s), No exacerbating factors reported . Patient notes fever/chills (Chills, no fever) and nausea/vomiting (Nausea, no vomiting). Patient did receive the following treatments prior to arrival, none Related Data Home Medications Medication Instructions Recorded Confirmed epinephrine 0.3 mg/0.3 mL 0.3 mg (0.3 mL) IM ONCE 06/20/19 08/13/22 injection, auto-injector (EpiPen anaphylaxis #2 ea 2-Hang) Reishi Mushroom PO 08/31/20 07/16/22 vitamin B complex 1 tab PO DAILY 08/31/20 08/13/22 aspirin 81 mg tablet,delayed 81 mg PO DAILY 06/05/21 08/13/22 release ginkgo biloba 40 mg tablet 40 mg PO Q2D 06/05/21 08/13/22 magnesium oxide 250 mg PO Q2D 06/05/21 08/13/22 turmeric 400 mg capsule 400 mg PO Q7D 06/05/21 08/13/22 multivitamin (Daily Multi-Vitamin 1 tab PO DAILY ##1 06/27/22 08/13/22 tablet) rosuvastatin 5 mg tablet 5 mg PO DAILY #90 tabs 06/27/22 08/13/22 sildenafil (pulm.hypertension) 20 60 mg PO ONCE PRN sexual activity 06/27/22 08/13/22 mg tablet #30 tabs tamsulosin 0.4 mg capsule 0.4 mg PO QHS #30 caps 06/27/22 08/13/22 Previous Rx's Medication Instructions Recorded epinephrine 0.3 mg/0.3 mL 0.3 mg (0.3 mL) IM ONCE 06/20/19 injection, auto-injector (EpiPen anaphylaxis #2 ea 2-Hang) rosuvastatin 5 mg tablet 5 mg PO DAILY #90 tabs 06/27/22 sildenafil (pulm.hypertension) 20 60 mg PO ONCE PRN sexual activity 06/27/22 mg tablet #30 tabs tamsulosin 0.4 mg capsule 0.4 mg PO QHS #30 caps 06/27/22 Allergies Allergy/AdvReac Type Severity Reaction Status Date / Time bee venom protein (honey bee) Allergy Mild swelling Verified 08/13/22 12:12 of the upper lip. cephalexin Allergy Pt unsure Verified 08/13/22 12:28 what happens General Stated Complaint: Abd Prob [place]: 3 Review of Systems Constitutional Constitutional: Denies fatigue, Denies fever(s) and Denies weakness Cardiovascular Cardiovascular: Denies chest pain and Denies dyspnea Respiratory Respiratory: Denies cough and Denies dyspnea Gastrointestinal Gastrointestinal: Reports abdominal pain, Denies melena, Denies hematochezia, Denies constipation, Denies diarrhea, Reports nausea and Denies vomiting Genitourinary Genitourinary: Denies hematuria, Denies dysuria, Denies penile discharge, Denies scrotal swelling, Denies testicular mass, Denies testicular pain, Denies urinary hesitancy and Denies urinary incontinence Musculoskeletal Musculoskeletal: Denies back pain Integumentary/Breasts Skin/Breast: Denies rash Neurologic Neurologic: Denies weakness Endocrine Endocrine: Denies fatigue Hematologic/Lymphatic Hematologic/Lymphatic: Denies easy bleeding and Denies easy bruising PFSH All Active Problems (Updated 08/13/22 @ 13:42 by SUSIE Luong) Perforation of sigmoid colon due to diverticulitis (Acute) Bilateral sensorineural hearing loss (Acute) Emphysema of lung (Chronic) Raynauds disease (Chronic) Employment problem (Acute) Tubular adenoma of colon (Acute 07/19/09) on colonoscopy in 2008 and 2021 Elevated BP without diagnosis of hypertension (Chronic) follows at home - 126/73. 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 Father No problems noted. Sister No problems noted. Sister No problems noted. Brother No problems noted. Daughter No problems noted. Daughter No problems noted. Daughter No problems noted. Daughter No problems noted. Social History Smoking/Tobacco Use Status: Former Tobacco Use Smoking risk assessment performed?: Yes Alcohol Intake: current Alcohol Intake frequency: 3 or more drinks per day Alcohol type: beer, wine and hard liquor Drug use: Occasionally Substance use type: marijuana Details: Pt reports last using marijuana 3 weeks ago. 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 What is your relationship status?: Panel score (0-1 are the most socially isolated patients): 0 Do you feel safe at home: Yes (Lives alone) Do you feel safe in your relationship?: Yes Exam Const General: cooperative, healthy appearing and in distress mild Orientation: alert and awake [facility] Head: normal to inspection, normocephalic and atraumatic Face and sinus: normal facial exam Mouth: moist mucous membranes Throat: posterior oropharynx normal Eyes General: appearance normal, both eyes and all related structures Conjunctivae: conjunctivae normal Neck Neck: normal visual inspection, full ROM, no meningeal signs, trachea midline and supple Resp Effort & Inspection: normal respiratory effort and able to speak in complete sentences Auscultation: clear to auscultation bilaterally Cardio Rate: regular rate Rhythm: regular rhythm GI Inspection: normal to inspection Palpation: soft, not firm, guarding in the RLQ (And suprapubic region) and tender in the RLQ and suprapubicly Auscultation: normal bowel sounds Male General Exam: Yes normal external exam Penis: normal penis Meatus: meatus normal Scrotum: scrotum normal Testes: normal Back/Spine/Pelvis Back: no CVA tenderness and No back tenderness Skin General skin exam: no rashes or lesions noted Neuro General: patient alert, patient awake, patient oriented x3, moves all extremities and no focal motor deficits Cognition: normal cognition Speech: speech normal Gait: normal gait Motor: muscle tone normal throughout Sensory Exam: no sensory deficits noted Extrem General: normal to inspection, full ROM and capillary refill normal Psych Appearance: grossly normal Mental Status: mental status grossly normal Course Vital Signs Vital signs: Vital Signs Temperature 37.0 C 08/13/22 11:03 Pulse 63 08/13/22 11:03 Respiratory Rate 20 08/13/22 11:03 Blood Pressure 132/81 08/13/22 11:03 Pulse Oximetry 95 08/13/22 11:03 Temperature 37.0 C 08/13/22 11:03 Temperature Source Oral 08/13/22 11:03 Pulse 63 08/13/22 11:03 Respiratory Rate 20 08/13/22 11:03 Blood Pressure 132/81 08/13/22 11:03 Blood Pressure Position Sitting 08/13/22 11:03 Pulse Oximetry 95 08/13/22 11:03 Oxygen Delivery Method Room Air 08/13/22 11:03 Oxygen Flow Rate 0 08/13/22 11:03 Pain Level 10 08/13/22 11:03
--- NOTE | 2022-08-13 11:45 | DI.CT_ITS ---
Exam(s) CT ABDOMEN PELVIS W EXAM: CT ABDOMEN PELVIS W CLINICAL HISTORY: suprapubic/RLQ pain, lactate 2.1. TECHNIQUE: Imaging Protocol: Axial computed tomography images with coronal and sagittal reformatted images were created and reviewed CONTRAST MATERIAL: Intravenous: Omnipaque 350 Contrast volume:100 ml Oral: no COMPARISON: CT CT CHEST PE CTA from 07/11/2019 FINDINGS: ABDOMEN: Lung Bases: Heart mildly enlarged. Pacemaker. Lungs show motion. Liver: Normal density. No measurable mass. Gallbladder and biliary tract: No radiodense calculus or dilation. Pancreas: Normal density, no abnormal calcifications or inflammatory process. Spleen: Normal. Kidneys: Normal size, contour and axis. No radiodense stones or obstructive uropathy. No masses seen. Adrenal glands: No masses seen. Abdominal Aorta: Abdominal portion non-dilated. Moderate atherosclerotic changes. PELVIS: Bladder: No gross wall thickening. No calculi.No focal mass. Bowel: Diverticulosis lower descending and sigmoid colon. Wall thickening with surrounding stranding in the fat at the sigmoid region consistent with diverticulitis. There appeared to be bubbles of ai r extending outside of the lumen versus large diverticulum. No drainable abscess. No obstruction . Appendix not seen. Peritoneal cavity: No ascites or focal collection. Bones: Hardware related to posterior fusion from L4 through S1. Degenerative disc changes. No compr ession fracture. Reproductive organs: Slightly enlarged prostate. Lymph nodes: Unremarkable. Impression: Sigmoid diverticulitis. Question of localized perforation versus large diverticulum. Findings were called to the emergency department provider. RADIATION DOSE DELIVERED: Total DLP DATA REPOSITORY: All CT scans at this facility are submitted to the National Radiology Data Registry (NRDR) Dose Index Registry (DIR) with the [employer] (ACR). RADIATION OPTIMIZATION: All CT scans at this facility use at least one of these dose optimization te chniques: automated exposure control; mA and/or kV adjustment per patient size (includes targeted exa ms where dose is matched to clinical indication); or iterative reconstruction.
[2022-08-13 11:58] LABS: Abs Immature Grans 0.04 10^3/uL (0.0-0.06); Absolute Basophil Count 0.04 10^3/uL (0.0-0.2); Absolute Eosinophil Count 0.01 10^3/uL (0.0-0.7); Absolute Monocyte Count 0.97 10^3/uL (0.1-0.8); Absolute Neutrophil Count 9.88 10^3/uL (1.2-6.7); Basophils % 0.3; Eosinophils % 0.1; HCT 45.1 % (40.0-50.0); HGB 15.8 g/dL (13.5-17.5); Immature Grans % 0.3; Lactate 2.1 mmol/L (0.6-1.4); Lymphocytes % 7.6; MCH 33.5 pg (27.0-33.0); MCV 96 fL (80-95); MPV 8.5 fL (8.0-11.0); Monocytes % 8.2; Neutrophils % 83.5; Platelet Count 199 10^3/uL (130-400); RBC 4.72 10^6/uL (4.36-5.78); RDW-SD 42.9 fL; WBC 11.83 10^3/uL (4.4-10.8)
[2022-08-13] MEDS: Ondansetron 4 MG/2 ML VIAL (12:04)
[2022-08-13] MEDS: MORPHine 4 MG/ML SYR IVP ×2 (12:05→15:15)
[2022-08-13] MEDS: Normal Saline 1,000 ML 1000 ML IV (12:15)
[2022-08-13 12:20] LABS: ALT 24 U/L (16-63); AST 18 U/L (15-37); Albumin 4.3 g/dL (3.4-5.0); Alkaline Phosphatase 61 U/L (46-116); Anion Gap 9.4 mmol/L (3-11); BUN 17 mg/dL (7-18); Bilirubin, Total 2.3 mg/dL (0.2-1.0); CO2 28.6 mmol/L (21.0-32.0); CREATININE 1.2 mg/dL (0.70-1.30); Calcium 9.1 mg/dL (8.5-10.1); Chloride 97 mmol/L (98-107); Estimated GFR 65.06 (mL/min/1.73m2); Glucose 115 mg/dL (74-106); Lipase 92 U/L (73-393); Potassium 4.1 mmol/L (3.5-5.1); Sodium 135 mmol/L (136-145); Total Protein 8.2 g/dL (6.4-8.2)
[2022-08-13] MEDS: Normal Saline - Diluent 50 ML VIAL IV (13:16)
[2022-08-13] MEDS: Omnipaque 350 MG/ML 100 ML BTL IJ (13:17)
[2022-08-13 14:21] LABS: Source Nasal/Nares
[2022-08-13] MEDS: PIPERACILLIN/TAZO 3.375 GM in Normal Saline 50 ML IVPB ×2 (14:33→20:31)
[2022-08-13 14:50] LABS: Bilirubin Negative (Negative); Blood Negative (Negative); Clarity Clear (Clear); Glucose Negative (Negative); Ketones Trace mg/dL (Negative); Leukocyte Esterase Negative (Negative); Nitrite Negative (Negative); Specific Gravity 1.015 (1.005-1.025); Urobilinogen 0.2 EU/dL (Up TO 0.2)
[2022-08-13 14:57] LABS: COVID-19 PCR Negative (Negative)
[2022-08-13] MEDS: Normal Saline Flush 10 ML SYR IVP (15:15)
[2022-08-13 16:12] VITALS: BP 119/68; PULSE 88; RESP 18; TEMP 39.2; O2SAT 94
[2022-08-13 16:55] VITALS: O2SAT 94
[2022-08-13 16:56] VITALS: BP 128/92; PULSE 183
--- NOTE | 2022-08-13 17:32 | W.PM.HP.N ---
Date of service: 08/13/22 Time of Service: 16:30 Assessment and Plan Assessment and plan (1) Diverticulitis of colon with perforation: Status: Acute Assessment and plan: 72 yo man with sigmoid diverticulitis. HD stable. He does have focal peritonitis but it is not diffuse and the rest of his abdomen is soft. I reviewed his CT. The focus of the disease is the sigmoid colon. I'm not convinced that there is a perforation. There is no significant free fluid, no abscess and I don't appreciate dots of free air around this pocket of air leading me to suspect it is probably a large diverticulum we are seeing. Non-operative management for now is the best care plan: Strict NPO (ICE Chips ok) IVF Analgesia prn Serial abd exams Abx IV Monitor abdominal exams, WBC, fevers and bowel function. I did prepare the patient that he may be in the hospital 3 or 4 days. I don't think he is going to require emergency Hpil's, but I did describe this to him in case he decompensates or worsens(Which I don't anticipate) History of Present Illness Narrative: 72 man is healthy and active and has never had symptoms. He developed acute abdominal pain 2 days ago. It worsened yesterday and then today, since it was no better, he decided to come get checked out. Prior to the last few days he has been healthy and fine. Normal diet. Normal bowel function. No family history of colon CA. C-scope within last year and had diverticular disease of the sigmoid identified. He has had a fever but leading up to this, has not been having fevers or unintentional weight loss. PFSH All Active Problems (Updated 08/13/22 @ 17:39 by Jeff Ross MD) Diverticulitis of colon with perforation (Acute) Perforation of sigmoid colon due to diverticulitis (Acute) Bilateral sensorineural hearing loss (Acute) Emphysema of lung (Chronic) Raynauds disease (Chronic) Employment problem (Acute) Tubular adenoma of colon (Acute 07/19/09) on colonoscopy in 2008 and 2021 Elevated BP without diagnosis of hypertension (Chronic) follows at home - 126/73. 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 Father No problems noted. Sister No problems noted. Sister No problems noted. Brother No problems noted. Daughter No problems noted. Daughter No problems noted. Daughter No problems noted. Daughter No problems noted. Social History Smoking/Tobacco Use Status: Former Tobacco Use Smoking risk assessment performed?: Yes Alcohol Intake: current Alcohol Intake frequency: 3 or more drinks per day Alcohol type: beer, wine and hard liquor Drug use: Occasionally Substance use type: marijuana Details: Pt reports last using marijuana 3 weeks ago. 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 What is your relationship status?: Panel score (0-1 are the most socially isolated patients): 0 Do you feel safe at home: Yes (Lives alone) Do you feel safe in your relationship?: Yes Meds Allergies and Home Medications Allergies Allergy/AdvReac Type Severity Reaction Status Date / Time bee venom protein (honey bee) Allergy Mild swelling Verified 08/13/22 12:12 of the upper lip. cephalexin Allergy Pt unsure Verified 08/13/22 12:28 what happens Home Medications Medication Instructions Recorded Confirmed Type epinephrine 0.3 mg/0.3 mL 0.3 mg (0.3 mL) IM ONCE 06/20/19 08/13/22 Rx injection, auto-injector (EpiPen anaphylaxis #2 ea 2-Hang) Reishi Mushroom PO 08/31/20 07/16/22 History vitamin B complex 1 tab PO DAILY 08/31/20 08/13/22 History aspirin 81 mg tablet,delayed 81 mg PO DAILY 06/05/21 08/13/22 History release ginkgo biloba 40 mg tablet 40 mg PO Q2D 06/05/21 08/13/22 History magnesium oxide 250 mg PO Q2D 06/05/21 08/13/22 History turmeric 400 mg capsule 400 mg PO Q7D 06/05/21 08/13/22 History multivitamin (Daily Multi-Vitamin 1 tab PO DAILY ##1 06/27/22 08/13/22 History tablet) rosuvastatin 5 mg tablet 5 mg PO DAILY #90 tabs 06/27/22 08/13/22 Rx sildenafil (pulm.hypertension) 20 60 mg PO ONCE PRN sexual activity 06/27/22 08/13/22 Rx mg tablet #30 tabs tamsulosin 0.4 mg capsule 0.4 mg PO QHS #30 caps 06/27/22 08/13/22 Rx Exam Narrative Exam Narrative: Vitals: Febrile, vitals within acceptable limits on room air. (Pacer dependent) Gen: nontoxic, mildly uncomfortable, interactive and alert Neuro: AxOx3 Psych: Appropriate mood and affect. Good insight and understanding. Abdomen: Mostly soft, moderately distended, tap tenderness in the bilateral lower quadrants. Bilateral upper quadrants are NOT tender. Results Labs Result diagrams: 08/13/22 11:50 08/13/22 11:50 Labs: Laboratory Results - last 24 hr 08/13/22 08/13/22 08/13/22 11:07 11:50 11:50 WBC 11.83 H RBC 4.72 Hgb 15.8 Hct 45.1 MCV 96 H MCH 33.5 H MCHC 35.0 RDW 12.0 Plt Count 199 MPV 8.5 Immature Gran % 0.3 Neutrophils % 83.5 Lymphocytes % 7.6 Monocytes % 8.2 Eosinophils % 0.1 Basophils % 0.3 Nucleated RBC % 0.0 Absolute Neutrophils 9.88 H Absolute Lymphocytes 0.90 L Absolute Monocytes 0.97 H Absolute Eosinophils 0.01 Absolute Basophils 0.04 VBG Lactate Sodium 135 L Potassium 4.1 Chloride 97 L Carbon Dioxide 28.6 Anion Gap 9.4 BUN 17 Creatinine 1.2 Est GFR (CKD-EPI 2020) 65.06 Glucose 115 H Calcium 9.1 Total Bilirubin 2.3 H AST 18 ALT 24 Alkaline Phosphatase 61 Total Protein 8.2 Albumin 4.3 Lipase 92 Urine Color Yellow Urine Clarity Clear Urine pH 7.0 Ur Specific [place] 1.015 Urine Protein Negative Urine Ketones Trace H Urine Blood Negative Urine Nitrite Negative Urine Bilirubin Negative Urine Urobilinogen 0.2 Ur Leukocyte Esterase Negative Urine Glucose Negative COVID-19 Source SARS-CoV-2 (PCR) 08/13/22 08/13/22 11:50 14:11 WBC RBC Hgb Hct MCV MCH MCHC RDW Plt Count MPV Immature Gran % Neutrophils % Lymphocytes % Monocytes % Eosinophils % Basophils % Nucleated RBC % Absolute Neutrophils Absolute Lymphocytes Absolute Monocytes Absolute Eosinophils Absolute Basophils VBG Lactate 2.1 H Sodium Potassium Chloride Carbon Dioxide Anion Gap BUN Creatinine Est GFR (CKD-EPI 2020) Glucose Calcium Total Bilirubin AST ALT Alkaline Phosphatase Total Protein Albumin Lipase Urine Color Urine Clarity Urine pH Ur Specific [place] Urine Protein Urine Ketones Urine Blood Urine Nitrite Urine Bilirubin Urine Urobilinogen Ur Leukocyte Esterase Urine Glucose COVID-19 Source Nasal/Nares SARS-CoV-2 (PCR) Negative Last Vital Signs Temp 102.6 F H 08/13/22 16:12 Pulse 88 08/13/22 16:12 Resp 18 08/13/22 16:12 BP 119/68 08/13/22 16:12 Pulse Ox 94 08/13/22 16:12 PAWSS Have you Been Recently Intoxicated or Drunk Within the Last 30 days?: No Have you Ever Experienced Previous Episodes of Alcohol Withdrawal?: No Have you ever Experienced Withdrawal Seizures?: No Have you ever Experienced Delirium Tremens(DT)s?: No Have you ever undergone Alcohol Rehabilitation Treatment (i.e, inpt ot outpatient treatment programs)?: No Have you ever Experienced Blackouts?: No Have you ever Combined Alcohol with other Downers within the last 90 days?: No Have you ever Combined Alcohol with any other Substance of Abuse during the last 90 days?: No Positive Blood Alcohol level on Presentation? [PCS.BAL]: No Evidence of Increased Autonomic Activity (i.e. HR>120, tremor, sweating, agitation, nausea)?: No Result: 0
[2022-08-13] MEDS: Lactated Ringers 1,000 ML 125 ML IV (18:00)
[2022-08-13] MEDS: Normal Saline 500 ML 30 ML IV (18:00)
[2022-08-13] MEDS: ACETAMINOPHEN 1,000 MG/100 ML BTL 400 MG IVPB (18:01)
[2022-08-13] MEDS: Heparin 5,000 UNITS/ML VIAL 5000 UNITS SC (18:01)
[2022-08-13] MEDS: HYDROmorphone 2 MG/ML SYR 0.5 MG IVP (18:08)
[2022-08-13 22:39] VITALS: PULSE 73; RESP 16; TEMP 36.5; O2SAT 93
[2022-08-14] VITALS (33 sets, daily range): BP systolic 108–200; BP diastolic 58–100; PULSE 54–90; RESP 11–28; TEMP 35.8–40.5; O2SAT 89–97; BMI 23.6
[2022-08-14] MEDS: HYDROmorphone 2 MG/ML SYR 0.5 MG IVP ×5 (00:03→17:34)
[2022-08-14] MEDS: Normal Saline Flush 10 ML SYR IVP ×4 (00:05→23:31)
[2022-08-14] MEDS: Ketorolac 15 MG/ML VIAL IVP ×3 (00:06→16:37)
[2022-08-14] MEDS: Lactated Ringers 500 ML IV ×2 (00:12→16:37)
--- NOTE | 2022-08-14 00:25 | NUR.NOTE ---
Demarcus Spencer SENIOR BUSINESS DEVELOPMENT MANAGER: Abdominal Assessment: abdomen does appear distended pts RLQ and LLQ extremely tender to palpation. in comparison to pts LUQ and MQ and RUQ. pt does report passing some gas this evening. pt reports IV hydromorphone and ketorolac only briefly giving some relief. Will continue to assess. Nursing Note:
[2022-08-14] MEDS: Heparin 5,000 UNITS/ML VIAL 5000 UNITS SC ×2 (01:28→10:16)
[2022-08-14] MEDS: ACETAMINOPHEN 1,000 MG/100 ML BTL 400 MG IVPB ×4 (01:31→23:18)
[2022-08-14] MEDS: Normal Saline 500 ML 30 ML IV (01:34)
[2022-08-14] MEDS: PIPERACILLIN/TAZO 3.375 GM in Normal Saline 50 ML IVPB ×4 (02:50→21:41)
[2022-08-14 06:32] LABS: Abs Immature Grans 0.02 10^3/uL (0.0-0.06); Absolute Basophil Count 0.02 10^3/uL (0.0-0.2); Absolute Eosinophil Count 0.02 10^3/uL (0.0-0.7); Absolute Lymphocyte Count 0.86 10^3/uL (1.2-3.4); Absolute Monocyte Count 0.62 10^3/uL (0.1-0.8); Absolute Neutrophil Count 6.53 10^3/uL (1.2-6.7); Basophils % 0.2; Eosinophils % 0.2; HCT 36.4 % (40.0-50.0); Immature Grans % 0.2; Lymphocytes % 10.7; MCH 34.6 pg (27.0-33.0); MCHC 35.7 % (32.0-36.0); MCV 97 fL (80-95); MPV 8.8 fL (8.0-11.0); Monocytes % 7.7; Platelet Count 139 10^3/uL (130-400); RBC 3.76 10^6/uL (4.36-5.78); RDW 12.7 % (11.8-14.1); RDW-SD 45.4 fL; WBC 8.07 10^3/uL (4.4-10.8)
--- NOTE | 2022-08-14 07:09 | W.PM.PROGNOT ---
Date of Service Date of service: 08/14/22 Time of Service: 07:00 Assessment and Plan Assessment and plan (1) Diverticulitis of colon with perforation: Status: Acute Assessment and plan: 72 yo healthy man with sigmoid diverticulitis, possible contained perforation, but I am not convinced it is. HD stable and improving. Still has focal peritonitis on examination. WBC has normalized. Plan: NPO IVF CIWA analgesia prn serial abdominal exams IV abx dvt prophylaxis Maybe trial a diet tomorrow as long as continues to improve. Ideally he will be pain free before we start PO. Subjective Subjective Interval history since last seen: Feeling a lot better at the bedside. No fevers since last night. Pain significantly decreased. Passing gas. Still feels bloated. Voiding adequately. Exam Narrative Exam Narrative: Gen: Nontoxic, comfortable and interactive Neuro: AxOx3 Psych: Appropriate mood and affect Abdomen: Soft, mild distention but improved, tap tenderness very focal in lower midline and LLQ. The other 3 quadrants are not tender. Objective Last Vital Signs Temp 96.4 F L 08/14/22 05:09 Pulse 62 08/14/22 05:09 Resp 14 08/14/22 05:09 BP 109/69 08/14/22 05:09 Pulse Ox 93 08/14/22 05:11 Laboratory Results - last 24 hr 08/13/22 08/13/22 08/13/22 11:07 11:50 11:50 WBC 11.83 H RBC 4.72 Hgb 15.8 Hct 45.1 MCV 96 H MCH 33.5 H MCHC 35.0 RDW 12.0 Plt Count 199 MPV 8.5 Immature Gran % 0.3 Neutrophils % 83.5 Lymphocytes % 7.6 Monocytes % 8.2 Eosinophils % 0.1 Basophils % 0.3 Nucleated RBC % 0.0 Absolute Neutrophils 9.88 H Absolute Lymphocytes 0.90 L Absolute Monocytes 0.97 H Absolute Eosinophils 0.01 Absolute Basophils 0.04 VBG Lactate Sodium 135 L Potassium 4.1 Chloride 97 L Carbon Dioxide 28.6 Anion Gap 9.4 BUN 17 Creatinine 1.2 Est GFR (CKD-EPI 2020) 65.06 Glucose 115 H Calcium 9.1 Total Bilirubin 2.3 H AST 18 ALT 24 Alkaline Phosphatase 61 Total Protein 8.2 Albumin 4.3 Lipase 92 Urine Color Yellow Urine Clarity Clear Urine pH 7.0 Ur Specific [place] 1.015 Urine Protein Negative Urine Ketones Trace H Urine Blood Negative Urine Nitrite Negative Urine Bilirubin Negative Urine Urobilinogen 0.2 Ur Leukocyte Esterase Negative Urine Glucose Negative COVID-19 Source SARS-CoV-2 (PCR) 08/13/22 08/13/22 08/14/22 11:50 14:11 06:24 WBC 8.07 RBC 3.76 L Hgb 13.0 L D Hct 36.4 L MCV 97 H MCH 34.6 H MCHC 35.7 RDW 12.7 Plt Count 139 MPV 8.8 Immature Gran % 0.2 Neutrophils % 81.0 Lymphocytes % 10.7 Monocytes % 7.7 Eosinophils % 0.2 Basophils % 0.2 Nucleated RBC % 0.0 Absolute Neutrophils 6.53 Absolute Lymphocytes 0.86 L Absolute Monocytes 0.62 Absolute Eosinophils 0.02 Absolute Basophils 0.02 VBG Lactate 2.1 H Sodium Potassium Chloride Carbon Dioxide Anion Gap BUN Creatinine Est GFR (CKD-EPI 2020) Glucose Calcium Total Bilirubin AST ALT Alkaline Phosphatase Total Protein Albumin Lipase Urine Color Urine Clarity Urine pH Ur Specific [place] Urine Protein Urine Ketones Urine Blood Urine Nitrite Urine Bilirubin Urine Urobilinogen Ur Leukocyte Esterase Urine Glucose COVID-19 Source Nasal/Nares SARS-CoV-2 (PCR) Negative PAWSS Have you Been Recently Intoxicated or Drunk Within the Last 30 days?: No Have you Ever Experienced Previous Episodes of Alcohol Withdrawal?: No Have you ever Experienced Withdrawal Seizures?: No Have you ever Experienced Delirium Tremens(DT)s?: No Have you ever undergone Alcohol Rehabilitation Treatment (i.e, inpt ot outpatient treatment programs)?: No Have you ever Experienced Blackouts?: No Have you ever Combined Alcohol with other Downers within the last 90 days?: No Have you ever Combined Alcohol with any other Substance of Abuse during the last 90 days?: No Positive Blood Alcohol level on Presentation? [PCS.BAL]: No Evidence of Increased Autonomic Activity (i.e. HR>120, tremor, sweating, agitation, nausea)?: No Result: 0
[2022-08-14 07:10] LABS: Anion Gap 5.3 mmol/L (3-11); BUN 22 mg/dL (7-18); CO2 28.7 mmol/L (21.0-32.0); CREATININE 1.4 mg/dL (0.70-1.30); Calcium 7.9 mg/dL (8.5-10.1); Chloride 101 mmol/L (98-107); Estimated GFR 54.07 (mL/min/1.73m2); Glucose 95 mg/dL (74-106); Sodium 135 mmol/L (136-145)
[2022-08-14] MEDS: Lactated Ringers 1,000 ML 125 ML IV ×2 (08:59→17:59)
--- NOTE | 2022-08-14 09:58 | INITIAL_ITS ---
- If Service Date Differs Date of service: 08/14/22 Time of Service: 09:59 Care Management Initial Assess REASON FOR HOSPITALIZATION:: Diverticulitis PAST MEDICAL HISTORY/PAST SURGICAL HISTORY:: Medical History . Pneumothorax, left. Rib fracture. Surgical History . History of colonoscopy with polypectomy (~02/21/22). Status post cardiac pacemaker proc edure (~2017). managed by [facility] [place]. Status post lumbar spinal fusion (~2010). Status post vascular bypass (~10/2020). to repair popliteal aneurysm - at [facility] [place] PREVIOUS FUNCTIONAL STATUS/SOCIAL/FAMILY SUPPORTS:: Isaiah resides in [place], alone. He has a supportive brother and daughter who also reside locally. Isaiah is independent at baseline. ADVANCE DIRECTIVES:: None on file. Has patient been provided with info about the portal/API?: Yes Did the patient sign up for the portal?: No CODE STATUS:: Full Code INSURANCE COVERAGE / FINANCIAL ISSUES:: MCR. [employer] CURRENT HOME/COMMUNITY SERVICES/EQUIPMENT:: None, currently. PRIMARY CARE PHYSICIAN:: Blaire Delgado. POTENTIAL DISCHARGE NEEDS:: Follow up appointments. PATIENT/FAMILY EDUCATION NEEDS:: Review discharge instructions, discuss Ask Me Three. ANTICIPATED BARRIERS TO DISCHARGE:: None identified. TRANSPORTATION:: Via private vehicle. PLAN:: Per Surgeon documentation: remains NPO, IVF, CIWA, analgesia prn, serial abdominal exams, IV abx, dvt prophylaxis. May trial a diet tomorrow as long as continues to improve. Ideally he will be pain free before we start PO. Anticipate Isaiah will return home when ready per MD. He will follow up with his PCP and plan of care as prescribed and transport via private vehicle with family.
--- NOTE | 2022-08-14 16:30 | DI.RAD_ITS ---
Exam(s) XR ABDOMEN FLAT UPRIGHT EXAM: XR ABDOMEN FLAT UPRIGHT CLINICAL HISTORY: Fever, increasing abdominal pain.. TECHNIQUE: 2D digital imaging was performed. COMPARISON: CT CT ABDOMEN PELVIS W from 08/13/2022 FINDINGS: 3 views There is free intraperitoneal air-pneumoperitoneum. Contrast is seen in the urinary bladder. Ileus versus incomplete small bowel obstruction pattern. There is air seen in the transverse colon and col onic flexures. Evidence of fusion surgery L4-5 S1. Also cardiac pacemaker. IMPRESSION: Pneumoperitoneum. Status surgical consult recommended. I note that CT scan performed 1 day prior revealed severe sigmoid diverticulitis. Most probably the pneumoperitoneum is related to perforated sigmoid diverticulitis. DATA REPOSITORY: RADIATION DOSE DELIVERED:
--- NOTE | 2022-08-14 17:18 | DI.VRAD_ITS ---
Addendum created by Christian Joyce MD on 08/14/2022 5:41:14 PM EST: THIS REPORT CONTAINS FINDINGS THAT MAY BE CRITICAL TO PATIENT CARE. The findings were verbally communicated via telephone conference with Jeff Ross at 5:40 PM EST on 08/14/2022. The findings were acknowledged and understood. Discussion regarding the interval appearance of what appears to be free air within the abdomen in this patient with diverticulitis. The patient is not postoperative. Initial report created on 08/14/2022 5:17:49 PM EST: PROCEDURE INFORMATION: Exam: XR Abdomen Exam date and time: 08/14/2022 4:55 PM Age: 72 years old Clinical indication: Other: Fever, increasing ab pain TECHNIQUE: Imaging protocol: Radiologic exam of the abdomen. Views: 2 Views. Upright and supine views. COMPARISON: CT ABDOMEN PELVIS W 08/13/2022 1:10 PM FINDINGS: Tubes, catheters and devices: Cardiac pacemaker. Gastrointestinal tract: There are multiple small bowel loops showing moderate distension and scattered air-fluid levels on upright view. There is concern for free air within the abdomen on the upright view under the right hemidiaphragm. The small bowel loops also show features of prominent outline of the margins which can be seen with free air. CT follow-up is recommended. No significant bowel edema evident. Large bowel with paucity of feces and air. Intraperitoneal space: Concern for free air. Bones/joints: Degenerative lumbar spine disease. Previous lower lumbar fusion L4-L5 and L5-S1. IMPRESSION: 1. Concern for free air within the abdomen. Recommend clinical correlation. CT follow-up is recommended. There is no evidence of free air by CT 08/13/2022. 2. Degenerative lumbar spine disease. Dictated and Authenticated by: Christian Joyce MD. Ordering:RADHA Aguilar MD
--- NOTE | 2022-08-14 18:14 | W.ANESPRE ---
General Info Date of Service Date Performed: 08/14/22 Height: 5 ft 10 in Weight: 74.843 kg Body Mass Index (BMI): 23.6 Meds Allergies and Home Medications Allergies Allergy/AdvReac Type Severity Reaction Status Date / Time bee venom protein (honey bee) Allergy Mild swelling Verified 08/13/22 12:12 of the upper lip. cephalexin Allergy Pt unsure Verified 08/13/22 12:28 what happens Home Medication Medication Instructions Recorded epinephrine 0.3 mg/0.3 mL 0.3 mg (0.3 mL) IM ONCE 06/20/19 injection, auto-injector (EpiPen anaphylaxis #2 ea 2-Hang) Reishi Mushroom PO 08/31/20 vitamin B complex 1 tab PO DAILY 08/31/20 aspirin 81 mg tablet,delayed 81 mg PO DAILY 06/05/21 release ginkgo biloba 40 mg tablet 40 mg PO Q2D 06/05/21 magnesium oxide 250 mg PO Q2D 06/05/21 turmeric 400 mg capsule 400 mg PO Q7D 06/05/21 multivitamin (Daily Multi-Vitamin 1 tab PO DAILY ##1 06/27/22 tablet) rosuvastatin 5 mg tablet 5 mg PO DAILY #90 tabs 06/27/22 sildenafil (pulm.hypertension) 20 60 mg PO ONCE PRN sexual activity 06/27/22 mg tablet #30 tabs tamsulosin 0.4 mg capsule 0.4 mg PO QHS #30 caps 06/27/22 Current Visit Medications: Current Medications Generic Name Dose Route Start Last Admin Trade Name Freq PRN Reason Stop Dose Admin Heparin Sodium (Porcine) 5,000 units 08/13/22 18:00 08/14/22 18:00 Heparin 5,000 Units/Ml Vial SC Not Given Q8H RADHA Hydromorphone HCl 0.5 mg 08/13/22 23:21 08/14/22 17:34 Hydromorphone 2 Mg/Ml Syr IVP 0.5 mg Q2H PRN PRN Administration Sodium Chloride 500 mls @ 0 mls/hr 08/13/22 15:00 08/14/22 01:34 Saline 500ml Bag IV 30 mls/hr PRN PRN Administration As Directed Ringer's Solution 1,000 mls @ 125 mls/hr 08/13/22 17:30 08/14/22 17:59 IV 125 mls/hr INFUSION RADHA Administration Piperacillin Sod/Tazobactam 50 mls @ 100 mls/hr 08/13/22 20:00 08/14/22 14:46 Sod 3.375 gm/ Sodium Chloride IVPB 100 mls/hr Q6H RADHA Administration Protocol Acetaminophen 1,000 mg in 100 mls @ 400 mls/hr 08/14/22 16:00 08/14/22 16:04 Ofirmev IVPB 400 mls/hr Q6H RADHA Administration IV Miscellaneous Supplies 1 each 08/13/22 17:30 Iv Access IV DIRECTED RADHA Ketorolac Tromethamine 15 mg 08/14/22 00:00 08/14/22 16:37 Ketorolac 15 Mg/Ml Vial IVP 08/19/22 00:00 15 mg Q8H RADHA Administration Ondansetron HCl 4 mg 08/13/22 17:22 Ondansetron 4 Mg/2 Ml Vial IVP Q4H PRN PRN Sodium Chloride 0 ml 08/13/22 15:00 08/14/22 08:59 Normal Saline Flush 10 Ml Syr IVP 30 ml PRN PRN Administration PFSH Active Problems Active Problems: Problem Status Onset Code Diverticulitis of colon with perforation K57.20 Perforation of sigmoid colon due to diverticulitis K57.20 Bilateral sensorineural hearing loss H90.3 Emphysema of lung J43.9 Raynauds disease I73.00 Employment problem Tubular adenoma of colon 07/19/09 D12.6 Elevated BP without diagnosis of hypertension R03.0 Elevated PSA, less than 10 ng/ml R97.20 Cardiac pacemaker in situ Z95.0 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 Surgical History Surgical History History of colonoscopy with polypectomy (~02/21/22) Status post cardiac pacemaker procedure (~2017) managed by [facility] [place] Status post lumbar spinal fusion (~2010) Status post vascular bypass (~10/2020) to repair popliteal aneurysm - at [facility] [place] Tobacco Smoking/Tobacco Use Status: Former Tobacco Use Alcohol Alcohol Intake: current Alcohol intake frequency: 3 or more drinks per day Alcohol type: beer, wine and hard liquor Substance Use Substance use: Occasionally Substance use type: marijuana Details: Pt reports last using marijuana 3 weeks ago. Vital Signs and Lab Results Vital Signs Most Recent Vital Signs in EMR: Most Recent Vital Signs Temp Pulse Resp BP Pulse Ox 38.1 C H 74 24 130/74 89 L 08/14/22 18:01 08/14/22 18:01 08/14/22 18:01 08/14/22 18:01 08/14/22 18:01 Lab Results Result Diagrams: 08/14/22 06:24 08/14/22 06:24 Blood Type / Crossmatch: No Data to Display Complete Blood Count: White Blood Count 8.07 10^3/uL (4.4-10.8) 08/14/22 06:24 Red Blood Count 3.76 10^6/uL (4.36-5.78) L 08/14/22 06:24 Hemoglobin 13.0 g/dL (13.5-17.5) L 08/14/22 06:24 Hematocrit 36.4 % (40.0-50.0) L 08/14/22 06:24 Platelet Count 139 10^3/uL (130-400) 08/14/22 06:24 Venous Blood Lactate 2.1 mmol/L (0.6-1.4) H 08/13/22 11:50 Complete Metabolic Panel: Sodium 135 mmol/L (136-145) L 08/14/22 06:24 Potassium 4.0 mmol/L (3.5-5.1) 08/14/22 06:24 Chloride 101 mmol/L (98-107) 08/14/22 06:24 Carbon Dioxide 28.7 mmol/L (21.0-32.0) 08/14/22 06:24 BUN 22 mg/dL (7-18) H 08/14/22 06:24 Creatinine 1.4 mg/dL (0.70-1.30) H 08/14/22 06:24 Est GFR (CKD-EPI 2020) 54.07 (mL/min/1.73m2) 08/14/22 06:24 Calcium 7.9 mg/dL (8.5-10.1) L 08/14/22 06:24 Albumin 4.3 g/dL (3.4-5.0) 08/13/22 11:50 Glucose 95 mg/dL (74-106) 08/14/22 06:24 Liver Function Panel: Alanine Aminotransferase (ALT/SGPT) 24 U/L (16-63) 08/13/22 11:50 Aspartate Amino Transf (AST/SGOT) 18 U/L (15-37) 08/13/22 11:50 Coagulation Panel: No Data to Display Cardiac Panel: No Data to Display Arterial Blood Gas: No Data to Display Venous Blood Gas: No Data to Display Pancreas Panel: Lipase 92 U/L (73-393) 08/13/22 11:50 Thyroid Panel: No Data to Display Infectious Disease: Coronavirus (COVID-19)(PCR) Negative (Negative) 08/13/22 14:11 Coronavirus 2019 Source Nasal/Nares 08/13/22 14:11 Blood Cultures: No Data to Display Toxicology Panel: No Data to Display Imaging and Studies Imaging and Studies Study information below may be from another EMR and interpreted by another provider. Please see original notes in EMR for more complete details. Echocardiogram Summary: 2020: LVEF 67%, no hemodynamically sig valvular dz. 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 Production Manager:: [employer] Reason for Placement:: Unknown Date of Last Device Interrogation:: Unknown Airway Exam Known Difficult Airway: No Mallampati Class: 1 Mouth Opening: Normal (> 3cm) Thyromental Distance: Greater than 3 cm Neck Range of Motion: Full ROM Neck Circumference: Normal Teeth Condition: Normal Dentition ASA Classification ASA Score: ASA 2 Emergency Case?: Yes NPO Status NPO Status: NPO Clears >2 hours, Solids >8 hours Anesthesia Plan Resuscitation Status: Full Code Anesthesia Technique: General Anesthesia Airway Planned: Endotracheal Tube Monitors Used: Standard Monitors
--- NOTE | 2022-08-14 18:34 | W.PM.PROGNOT ---
Date of Service Date of service: 08/14/22 Time of Service: 17:45 Assessment and Plan Assessment and plan (1) Diverticulitis of colon with perforation: Status: Acute Assessment and plan: 72 yo man with acute sigmoid diverticulitis. He had not perforated before, but he certainly within the last couple of hours as proven on upright KUB as well as his abdominal exam has worsened to widespread peritonitis. He remains HD stable, but is condition is now guarded and worse. At the bedside, he actually thinks he is feeling a little bit better, but I have recommended emergency surgical intervention for source control - Phil's procedure. We discussed colostomy bag. Temporary and with reversal options down the road. He understands the indications, risks and benefits from surgery and wishes to proceed. Overall PLAN: Diagnostic lap, washout and Phil's end colostomy Subjective Subjective Interval history since last seen: Called by RN for acute worsening of pain all of a sudden. Pain up under right chest. Febrile and chills. Bolused 500LR, stat KUB ordered. Called by VRADS for reading of free air under diaphragm. Exam Narrative Exam Narrative: Gen: Non-toxic but very uncomfortable. VSS and within acceptable limits on room air. Interactive. Neuro: Alert, oriented, x3 Psych: Appropriate mood and affect. Good insight and understanding into his condition. Abdomen: Firm, much more distended, tap tenderness in all 4 quadrants. Objective Last Vital Signs Temp 100.6 F H 08/14/22 18:01 Pulse 74 08/14/22 18:01 Resp 24 08/14/22 18:01 BP 130/74 08/14/22 18:01 Pulse Ox 92 08/14/22 18:19 Laboratory Results - last 24 hr 08/14/22 08/14/22 06:24 06:24 WBC 8.07 RBC 3.76 L Hgb 13.0 L D Hct 36.4 L MCV 97 H MCH 34.6 H MCHC 35.7 RDW 12.7 Plt Count 139 MPV 8.8 Immature Gran % 0.2 Neutrophils % 81.0 Lymphocytes % 10.7 Monocytes % 7.7 Eosinophils % 0.2 Basophils % 0.2 Nucleated RBC % 0.0 Absolute Neutrophils 6.53 Absolute Lymphocytes 0.86 L Absolute Monocytes 0.62 Absolute Eosinophils 0.02 Absolute Basophils 0.02 Sodium 135 L Potassium 4.0 Chloride 101 Carbon Dioxide 28.7 Anion Gap 5.3 BUN 22 H Creatinine 1.4 H Est GFR (CKD-EPI 2020) 54.07 Glucose 95 Calcium 7.9 L PAWSS Have you Been Recently Intoxicated or Drunk Within the Last 30 days?: No Have you Ever Experienced Previous Episodes of Alcohol Withdrawal?: No Have you ever Experienced Withdrawal Seizures?: No Have you ever Experienced Delirium Tremens(DT)s?: No Have you ever undergone Alcohol Rehabilitation Treatment (i.e, inpt ot outpatient treatment programs)?: No Have you ever Experienced Blackouts?: No Have you ever Combined Alcohol with other Downers within the last 90 days?: No Have you ever Combined Alcohol with any other Substance of Abuse during the last 90 days?: No Positive Blood Alcohol level on Presentation? [PCS.BAL]: No Evidence of Increased Autonomic Activity (i.e. HR>120, tremor, sweating, agitation, nausea)?: No Result: 0
[2022-08-14] MEDS: Lactated Ringers 1,000 ML 30 ML IV ×2 (19:08→23:00)
[2022-08-14] MEDS: Normal Saline 20 ML VIAL (19:55)
[2022-08-14] MEDS: Bupivacaine 0.5% Pres-Free 30 ML VIAL (19:55)
[2022-08-14] MEDS: Bupivacaine LIPOSOME/PF 133 MG/10 ML VIAL IJ (19:55)
--- NOTE | 2022-08-14 21:12 | BOWEL_PTH ---
PATIENT: Isaiah Irizarry LOC: U#:[id number] AGE/SX: 72/M ROOM: 229 RE08/13/[address]: Jeff Ross : 1950 BED: A DIS: 08/19/2022 SPEC #: [id number] RECD: 08/15/22 13:01 STATUS: HILDA REQ #: [id number] SILVINA: 08/14/22 21:[address]: Jeff Ross DEPT: Surgical Specimen RECD BY: Mary Padilla ENTERED: 08/15/22 13:02 SP TYPE: Bowel OTHR DR: Blaire Delgado Tissues: 1 - BOWEL RESECTION(OTHER) Procedures: GROSS AND MICRO LEVEL 5 Comments: [id number]
--- NOTE | 2022-08-14 21:56 | W.PM.OP ---
Date of service: 08/14/22 Time of Service: 21:56 Operative Note Operative Note Refer to Anesthesia Record Procedure Description: Procedures performed: 1. Diagnostic 2 Laparoscopic bilateral TAP block 3. Laparoscopic partial colectomy (sigmoid colon) 4. Laparoscopic end colostomy (Phil's) Preoperative diagnosis: Perforated sigmoid diverticulitis Postoperative diagnosis: Perforated sigmoid diverticulitis Surgeon: Daryl Ross MD Anesthesia: Vannessa Indication: The patient is a healthy 72-year-old man who developed acute abdominal pain. He came to the hospital and was monitored with serial abdominal exams after being found to have diverticulitis with possible micro-perforation. Originally and initially he was doing well however on hospital day #2, in the late afternoon, he developed an acute and severe worsening and also developed four?quadrant peritonitis. An upright plain film showed free intra-abdominal air. He was taken emergently to the operating room for exploration and a planned diverting end colostomy. Findings: Wide-spread prurulent contamination and peritonitis(Hinchey Class III). No focal abscess and no wide-spread fecal material. Sigmoid colon loop with a radha 4-5mm hole visible in a large diverticulum. Phil's created with Prolene stitch left in the rectal stump and flat, end-colostomy created. Complications: None EBL: Minimal Drains: 15fr NANCY drain left in the pelvis, haines catheter Procedure Details: Written consent was obtained from the patient who was in agreement with the indications, the potential risks as well as benefits of the procedure and he was taken to the operating room. He was laid supine and anesthesia was administered. He tolerated this well. His right arm was tucked. A Haines catheter was placed. He was receiving ongoing antibiotics and he received also 5000 units of subcutaneous heparin for prophylaxis. The abdomen was prepped and draped in sterile fashion. We performed a timeout when we are all in agreement I began the procedure A small stab incision was made along the midline just below the umbilicus and a Veress needle was used to insufflate the abdomen. Diagnostic laparoscopy was performed and all 4 quadrants were inspected. The bilateral lower quadrants were full of purulent material but there was no feculent matter noted. The bilateral upper quadrants are free of any visible purulence however widespread peritonitis was visible in the anterior abdominal wall and the loops of small bowel were all visibly inflamed. Under direct, laparoscopic visualization I performed a bilateral TAP block using an Exparel/bupivacaine/saline mixture. I placed 5 mm trochars in a couple of strategic locations on the abdominal wall and proceeded to washout the entire peritoneal cavity. This allowed good visualization into the pelvis where the loop of sigmoid colon was noted to be the center of all of the inflammation and in this loop, once I freed it up, there was a visible perforation present. In usual fashion I divided the mesocolon staying close to the colon wall considering the benign?nature of this disease. I divided the mesocolon at the sacral prominence and superior along the left lateral sidewall taking down the white line of Toldt as well and mobilizing the distal descending and sigmoid colons. At this point I had a large enough defect within the mesocolon to facilitate dividing the colon distal to the perforation and inflammation and a 12 mm port was placed at the future site of the colostomy. Through this port I placed the Endo MADELYN stapler and in usual fashion I divided the distal sigmoid/proximal rectum which left a nice long stump but was also beyond the diseased area. I ensured I had adequate mobilization to let my colostomy and verified hemostasis which was excellent. I divided the fascia at the level of my 12 mm trocar site and used the defect that had already created. I split the rectus muscle bluntly and was able to reach down and pull up the now?divided diseased segment of colon. It came out without too much difficulty. I divided it sharply and passed the specimen off the table Next I sutured a Prolene stitch into the rectal stump to easily identify it at the time of his reversal. I then left a 15 Vietnamese NANCY drain in the pelvis and took it out one of my 5 mm port sites. Hemostasis was verified. The remaining distal colon at the level of the colostomy was healthy and pink in appearance. I placed a couple of trans-fascial sutures with Vicryl to the serosal edges. I then fashioned my colostomy in a usual/typical manner to the dermal layers circumferentially with Vicryl. I did verify that the fascia was not too tight around the colostomy and was able to easily pass my finger through the defect I had made and there was no kinking. At this point I removed my trocars. We closed skin with Monocryl. Dressings were placed. A colostomy bag was sized. The drain was sutured into place. The sponge, instruments and sharps counts were correct x3. The patient was extubated and taken to the ICU in stable condition.
--- NOTE | 2022-08-14 23:15 | NUR.NOTE ---
Nursing Note: Pt arrived to rm 222 at 2150 from OR via bed. This RN was informed pt would be ICU level of care. Pt was treated as such without transfer orders. MD notified of missing transfer orders. Dr. Ross states pt does not need ICU level of care and that he should return to med/surg. In absence of ICU orders, this RN documented flowsheet for PACU and DSU phase II recovery intervention. At time of Dr. Ross's assessment, pt was already awake, alert, talking, vitals stable, maintaining >90 on RA and >92 on 2LNC. Arana patent, NANCY draining, passing flatus, stool and scant blood in colostomy bag, DRSGs CDI, and pain-free.
[2022-08-15] VITALS (80 sets, daily range): BP systolic 94–149; BP diastolic 62–88; PULSE 58–82; RESP 11–24; TEMP 36.4–37.2; O2SAT 81–98
[2022-08-15] MEDS: Ketorolac 15 MG/ML VIAL IVP ×3 (00:08→15:38)
[2022-08-15] MEDS: Normal Saline Flush 10 ML SYR IVP ×4 (00:09→18:26)
[2022-08-15] MEDS: Normal Saline 500 ML 30 ML IV (01:52)
[2022-08-15] MEDS: Heparin 5,000 UNITS/ML VIAL 5000 UNITS SC ×3 (01:53→18:26)
[2022-08-15] MEDS: PIPERACILLIN/TAZO 3.375 GM in Normal Saline 50 ML IVPB ×4 (01:54→20:04)
[2022-08-15] MEDS: ACETAMINOPHEN 1,000 MG/100 ML BTL 400 MG IVPB ×4 (03:58→22:11)
--- NOTE | 2022-08-15 06:56 | NUR.NOTE ---
Nursing Note: Necklace and Phone List were found and returned to patient.
--- NOTE | 2022-08-15 08:23 | PGE_ITS ---
Date of Service Date of service: 08/15/22 Time of Service: 08:15 Assessment and Plan Assessment and plan (1) Diverticulitis of colon with perforation: Status: Acute Assessment and plan: 72 yo man POD 1 from [facility] for perforated diverticulitis. HD stable and doing well. No significant bowel function yet. Plan for today: Stay on clears until better bowel function Cont IVF - maintenance DVT prophylaxis IV Abx Keep drain to bulb suction Remove Arana OOB and ambulate IS DC planning with care managers for home ostomy supplies Subjective Subjective Interval history since last seen: No complaints. Pain drastically improved. Tolerating clears. No N/V. Urine output adequate. Exam Narrative Exam Narrative: Gen: Nontoxic and comfortable and interactive Neuro: AxOx3 Psych: Appropriate mood and affect. Good insight and understanding. Abdomen: Soft, moderately distended still but decreased. Minimal but expectected tenderness. Dressings are CDI. Ostomy is pink and patent. Liquid output in the bag is minimal. No significant air in the bag. Drain has serosanguinous output. 140cc overnight. Objective Last Vital Signs Temp 98.1 F 08/15/22 07:26 Pulse 69 08/15/22 07:26 Resp 19 08/15/22 07:26 BP 126/80 08/15/22 07:26 Pulse Ox 92 08/15/22 07:26 PAWSS Have you Been Recently Intoxicated or Drunk Within the Last 30 days?: No Have you Ever Experienced Previous Episodes of Alcohol Withdrawal?: No Have you ever Experienced Withdrawal Seizures?: No Have you ever Experienced Delirium Tremens(DT)s?: No Have you ever undergone Alcohol Rehabilitation Treatment (i.e, inpt ot outpatient treatment programs)?: No Have you ever Experienced Blackouts?: No Have you ever Combined Alcohol with other Downers within the last 90 days?: No Have you ever Combined Alcohol with any other Substance of Abuse during the last 90 days?: No Positive Blood Alcohol level on Presentation? [PCS.BAL]: No Evidence of Increased Autonomic Activity (i.e. HR>120, tremor, sweating, agitat ion, nausea)?: No Result: 0
--- NOTE | 2022-08-15 09:24 | NUR.NOTE ---
30ml Serosanguinous fluid out of NANCY drain. Patient up in chair, pain free and doing well.Nursing Note:
[2022-08-15] MEDS: DEXTROSE 5%-0.45% SALINE 1,000 ML 75 ML IV ×2 (09:52→23:40)
--- NOTE | 2022-08-15 10:27 | NUR.NOTE ---
Colostomy bag is emptied. Patient still up in chair. Acetaminophen is infusion.Nursing Note:
--- NOTE | 2022-08-15 14:33 | W.ANESPOSTOP ---
Postoperative Evaluation Date, Time and Location Date Performed: 08/15/22 Time Performed: 14:34 Patient Location: Intensive Care Unit Vital Signs Most Recent Imported Vital Signs: Most Recent Vital Signs Temp Pulse Resp BP Pulse Ox 36.7 C 69 19 126/80 93 08/15/22 07:26 08/15/22 07:26 08/15/22 07:26 08/15/22 07:26 08/15/22 09:36 Pain Score Most Recent Pain Score: Most Recent Pain Score Pain Level [Scrotum] 0 08/15/22 06:00 Pain Level [Abdomen] 0 08/14/22 22:30 Pain Level 0 08/15/22 10:07 Assessment Mental Status: Awake (Alert & Oriented to Patient Baseline) Airway and Respiratory Function: Patent airway with normal (patient baseline) respiratory exam Cardiovascular Function: Hemodynamically Stable Hydration Status: Adequately Hydrated Nausea & Vomiting: No Nausea or Vomiting Pain: Pain is tolerable per patient Peripheral Nerve Block: Patient did not receive a nerve block
--- NOTE | 2022-08-15 15:54 | PHA.REVIEW2 ---
Pharmacy Admission Review - Admission Clinical Review (Last Reviewed 08/13/22 @ 11:42 by SUSIE Luong) Diverticulitis of colon with perforation (Acute) Perforation of sigmoid colon due to diverticulitis (Acute) bee venom protein (honey bee) Allergy (Mild, Verified 08/13/22 12:12) swelling of the upper lip. cephalexin Allergy (Verified 08/13/22 12:28) Pt unsure what happens Resuscitation Status Full Code Height 5 ft 10 in Weight 78.5 kg - Renal Dosing Renal Dosing: BUN 22 mg/dL (7-18) H 08/14/22 06:24 Creatinine 1.4 mg/dL (0.70-1.30) H 08/14/22 06:24 Medications needing adjustments: Reviewed - Anticoagulation Anticoagulation: Hgb 13.0 g/dL (13.5-17.5) L D 08/14/22 06:24 Hct 36.4 % (40.0-50.0) L 08/14/22 06:24 Plt Count 139 10^3/uL (130-400) 08/14/22 06:24 Creatinine 1.4 mg/dL (0.70-1.30) H 08/14/22 06:24 DVT Prophylaxis: Reviewed Medications: Heparin - Opiate Usage Evaluate Pain Scale/Pains Meds: Reviewed Scheduled Bowel Reg ordered if on Opiates?: Yes (S/P colectomy) - Relevant Labs Sodium 135 mmol/L (136-145) L 08/14/22 06:24 Potassium 4.0 mmol/L (3.5-5.1) 08/14/22 06:24 Chloride 101 mmol/L (98-107) 08/14/22 06:24 Electrolytes, C-Reactive P, ESR: Reviewed - DM Control DM Control: Glucose 95 mg/dL (74-106) 08/14/22 06:24 DM Control: N/A - Cardiac Review BP, HR, EF%: Reviewed - Qtc Review QTc: N/A - IV to PO Switch IV Medications: Reviewed - Home Meds Home Med List reviewed: Reviewed Relevent Home Meds Not ordered & why?: tamsulosin, rosuvastatin -- currently NPO - Current meds Current Medication Order Review: Reviewed (empiric abx coverage with zosyn, APAP is schedule q6h -- it was increased from q8h yesterday d/t acute worsening of condition, will have provider reevaluate frequency)
--- NOTE | 2022-08-15 16:43 | CMPROGNOTE_ITS ---
- If Service Date Differs Date of service: 08/15/22 Time of Service: 16:43 Care Management Progress Note S/O: Isaiah is post op day number one, he is on clear liquid diet, IVF and IV ABX. Arana removed and Isaiah has been up and ambulating. Anticipate he will remain at [facility] for at least a couple more days post surgically monitored for diet toleration and stability. He will participate in ostomy education. CM continues to follow. A: 72 year old male admitted to [facility] 08/13/22 for Diverticulitis P: 72 yo man POD 1 from [facility] for perforated diverticulitis. Anticipate Isaiah will return home when ready per MD with new orders for [facility] support, as indicated. [facility] will provide ostomy supplies; CM to support coordination if needed. Extra supplies will also be provided to Isaiah upon discharge. He will follow up with providers and transport via private vehicle with family.
[2022-08-16] MEDS: Normal Saline Flush 10 ML SYR IVP ×2 (00:57→16:30)
[2022-08-16] MEDS: Ketorolac 15 MG/ML VIAL IVP ×3 (00:57→16:28)
[2022-08-16] MEDS: PIPERACILLIN/TAZO 3.375 GM in Normal Saline 50 ML IVPB ×4 (02:37→20:03)
[2022-08-16] MEDS: Heparin 5,000 UNITS/ML VIAL 5000 UNITS SC ×3 (02:37→18:59)
[2022-08-16] MEDS: ACETAMINOPHEN 1,000 MG/100 ML BTL 400 MG IVPB (05:05)
--- NOTE | 2022-08-16 08:39 | NUR.NOTE ---
RN takes sign off from Brian Marcelino. Patient had an uneventful night.Nursing Note:
--- NOTE | 2022-08-16 09:45 | PDOC.HHF2F_ITS ---
Home Health Certification Home Health Certification: 1. Encounter Date and Reason I certify that Isaiah Irizarry was seen by Sarkis Sauer MD on 08/16/22 and that I had a [id number] encounter with this patient that meets the physician face to face encounter requirements. 2. Clinical Findings Supporting Skilled Need and Homebound Status I certify that home health services are medically necessary, include either intermittent fpc and/or physical/speech therapy, and that this patie nt is homebound in that absences from the home require considerable and taxing effort and are infrequent or of short duration, or are attributable to the need to receive medical care. [X] (a) Attached documentation from encounter provides clinical findings supporting skilled need and homebound status (including what assistance patient requires to leave the home). The encounter with the patient was in whole, or in part, for the following medical condition, which is the primary reason for home health care: Diverticulitis Group Home: Isaiah has a new colostomy which will require stoma supplies and appliance maintenance in a cabin with no running water. Additionally, he has a surgical drain in his pelvis that requires drain maintenance. Physical Therapy: Speech Therapy: Homebound: 3. Certification and Authentication I certify that I composed the above information based on my clinical judgement relating to this patient's medical condition and, if applicable, clinical findings communicated to me by the NPP or inpatient physician who performed the Home Health Referral. All further orders will be obtained through (Community Based Physician - PCP)
--- NOTE | 2022-08-16 09:46 | PGE_ITS ---
Date of Service Date of service: 08/16/22 Time of Service: 09:47 Assessment and Plan Assessment and plan (1) Diverticulitis of colon with perforation: Status: Acute Assessment and plan: Isaiah looks very good after laparoscopic sigmoid colectomy for perforated diverticulitis. I will restart his rosuvastatin and tamsulosin today. He has a mild acute blood loss anemia on yesterday's CBC, which I will repeat tomorrow. I think it is fine to advance his diet to a regular diet today. We can Hep-Lock the intravenous fluids, and start to transition away from intravenous medic ations. I will reassess the drain output tomorrow. I explained that ultimately, he might need to be discharged with the drain. We also talked for a long time about where he will go at discharge, and the role of family assistance and visiting nurses to help with his recovery. Based on his current trajectory, I would anticipate discharge from the hospital on Thursday Subjective Subjective Interval history since last seen: Isaiah had some difficulty maintaining sleep overnight because of some chronic lower back discomfort that seems to be exacerbated by his recovery and hospital bed. He had some relief with movement and repositioning. He has been tolerating the postsurgical diet, and has increasing amounts of gas and stool product in his colostomy bag. Exam GI Other: His abdomen is soft, and less distended today. His stoma has liquid stool and gas. Objective Last Vital Signs Temp 99.0 F 08/15/22 15:20 Pulse 66 08/15/22 20:25 Resp 21 08/15/22 08:50 BP 149/82 H 08/15/22 20:25 Pulse Ox 98 08/15/22 20:25 PAWSS Have you Been Recently Intoxicated or Drunk Within the Last 30 days?: No Have you Ever Experienced Previous Episodes of Alcohol Withdrawal?: No Have you ever Experienced Withdrawal Seizures?: No Have you ever Experienced Delirium Tremens(DT)s?: No Have you ever undergone Alcohol Rehabilitation Treatment (i.e, inpt ot outpatien t treatment programs)?: No Have you ever Experienced Blackouts?: No Have you ever Combined Alcohol with other Downers within the last 90 days?: No Have you ever Combined Alcohol with any other Substance of Abuse during the last 90 days?: No Positive Blood Alcohol level on Presentation? [PCS.BAL]: No Evidence of Increased Autonomic Activity (i.e. HR>120, tremor, sweating, agitation, nausea)?: No Result: 0
[2022-08-16 09:54] VITALS: BP 163/92; PULSE 60; O2SAT 96
[2022-08-16 09:55] VITALS: BP 163/92; PULSE 60; RESP 18; TEMP 36.8; O2SAT 97
[2022-08-16] MEDS: DEXTROSE 5%-0.45% SALINE 1,000 ML 75 ML IV (13:58)
[2022-08-16 16:34] VITALS: BP 187/96; PULSE 62; RESP 20; TEMP 37.6; O2SAT 98
[2022-08-16 18:50] VITALS: BP 174/81
[2022-08-16] MEDS: Rosuvastatin 5 MG TAB PO (20:02)
[2022-08-16] MEDS: Acetaminophen 325 MG TAB 650 MG PO (20:02)
[2022-08-16 20:30] VITALS: BP 171/88; PULSE 67; TEMP 37.2; O2SAT 97
[2022-08-17] VITALS (7 sets, daily range): BP systolic 146–184; BP diastolic 86–95; PULSE 57–68; RESP 14–18; TEMP 36.6–38.5; O2SAT 94–95
[2022-08-17] MEDS: PIPERACILLIN/TAZO 3.375 GM in Normal Saline 50 ML IVPB ×4 (01:24→19:53)
[2022-08-17] MEDS: Ketorolac 15 MG/ML VIAL IVP ×4 (01:24→23:15)
[2022-08-17] MEDS: Heparin 5,000 UNITS/ML VIAL 5000 UNITS SC ×3 (01:25→17:59)
[2022-08-17] MEDS: DEXTROSE 5%-0.45% SALINE 1,000 ML 75 ML IV (05:28)
[2022-08-17 06:11] LABS: HCT 33.4 % (40.0-50.0); HGB 11.8 g/dL (13.5-17.5); MCH 33.7 pg (27.0-33.0); MCHC 35.3 % (32.0-36.0); MCV 95 fL (80-95); MPV 9.1 fL (8.0-11.0); Platelet Count 209 10^3/uL (130-400); RDW 12.5 % (11.8-14.1); RDW-SD 43.5 fL; WBC 9.49 10^3/uL (4.4-10.8)
[2022-08-17] MEDS: Tamsulosin 0.4 MG CAPCR PO (09:26)
--- NOTE | 2022-08-17 09:38 | NUR.NOTE ---
MD aware of elevated BP which is now 161/82 and will not order any betablockers at this time. changes out NANCY dressing.Nursing Note:
--- NOTE | 2022-08-17 09:45 | DI.RAD_ITS ---
Exam(s) XR ABDOMEN FLAT PLATE EXAM: XR ABDOMEN FLAT PLATE CLINICAL HISTORY: new right upper quadrant pain TECHNIQUE: COMPARISON: CR,XR XR ABDOMEN FLAT UPRIGHT from 08/14/2022 FINDINGS: Two views were obtained. Examination is compared with prior examination of August 14 which showe d pneumoperitoneum and marked ileus with prominent dilatation of multiple small bowel loops. On toda y's examination, there is decreased small bowel dilatation in comparison with the prior study. No ev idence of obstruction. No gross pneumoperitoneum identified on these supine images. IMPRESSION: RADIATION DOSE DELIVERED: Total DLP
--- NOTE | 2022-08-17 10:01 | NUR.NOTE ---
Patient will be transported to Med/Surg. Oral report given to Med/mechanical shop laborer.Nursing Note:
[2022-08-17 10:09] LABS: ALT 38 U/L (16-63); AST 42 U/L (15-37); Albumin 2.6 g/dL (3.4-5.0); Alkaline Phosphatase 60 U/L (46-116); Bilirubin, Direct 0.2 mg/dL (0.0-0.2); Bilirubin, Total 0.6 mg/dL (0.2-1.0); Total Protein 5.4 g/dL (6.4-8.2)
[2022-08-17] MEDS: Lidocaine 5% Patch 1 PATCH TP (10:55)
[2022-08-17] MEDS: Acetaminophen 325 MG TAB 650 MG PO ×2 (14:29→19:53)
[2022-08-17] MEDS: Normal Saline Flush 10 ML SYR IVP ×3 (15:15→23:17)
[2022-08-17] MEDS: Rosuvastatin 5 MG TAB PO (19:53)
[2022-08-18] VITALS (7 sets, daily range): BP systolic 139–175; BP diastolic 84–96; PULSE 54–77; RESP 16–18; TEMP 37.2–38.1; O2SAT 92–97
[2022-08-18] MEDS: PIPERACILLIN/TAZO 3.375 GM in Normal Saline 50 ML IVPB ×3 (02:36→14:19)
[2022-08-18] MEDS: Normal Saline Flush 10 ML SYR IVP ×4 (02:37→23:54)
[2022-08-18] MEDS: Heparin 5,000 UNITS/ML VIAL 5000 UNITS SC ×3 (02:37→18:30)
[2022-08-18] MEDS: Acetaminophen 325 MG TAB 650 MG PO ×2 (02:49→20:03)
[2022-08-18 06:25] LABS: HCT 34.9 % (40.0-50.0); HGB 12.2 g/dL (13.5-17.5); MCH 33.1 pg (27.0-33.0); MCV 95 fL (80-95); Platelet Count 221 10^3/uL (130-400); RBC 3.69 10^6/uL (4.36-5.78); RDW 12.2 % (11.8-14.1); RDW-SD 42.9 fL; WBC 10.06 10^3/uL (4.4-10.8)
[2022-08-18] MEDS: Ketorolac 15 MG/ML VIAL IVP ×3 (08:11→23:53)
[2022-08-18] MEDS: Tamsulosin 0.4 MG CAPCR PO (08:11)
--- NOTE | 2022-08-18 10:30 | W.PM.PROGNOT ---
Date of Service Date of service: 08/18/22 Time of Service: 10:30 Assessment and Plan Assessment and plan (1) Diverticulitis of colon with perforation: Status: Acute Assessment and plan: The new right upper quadrant pain yesterday, especially with his fever last night, is little concerning for an abscess. His white blood cell counts not very high, and his exam is overall reassuring. I do think the safest thing to do is to continue the antibiotics for now, and get a CAT scan of the abdomen and pelvis today. If the CAT scan is negative, then I be more comfortable with him leaving. If there is any evidence of retained fluid, then I think we should continue the antibiotics for a few more days. The drain is still little bloody for removal. Subjective Subjective Interval history since last seen: Isaiah had an isolated fever overnight, and some low-grade elevated temperatures after that. He says he felt a little crummy at the time. He complained of a little bit of sinus congestion. He says he feels a little bloated this morning, and he still having a little bit of right upper quadrant pain. Exam GI Other: His abdomen is mildly distended, but less than the past 2 days. He is got good bowel sounds. Stoma is productive of stool and gas. His incisions are clean, and there is no erythema. He is not very tender. Objective Last Vital Signs Temp 99.7 F H 08/18/22 02:50 Pulse 70 08/18/22 02:50 Resp 16 08/18/22 02:50 BP 170/86 H 08/18/22 02:50 Pulse Ox 94 08/18/22 02:50 Laboratory Results - last 24 hr 08/18/22 05:42 WBC 10.06 RBC 3.69 L Hgb 12.2 L Hct 34.9 L MCV 95 MCH 33.1 H MCHC 35.0 RDW 12.2 Plt Count 221 MPV 9.0 PAWSS Have you Been Recently Intoxicated or Drunk Within the Last 30 days?: No Have you Ever Experienced Previous Episodes of Alcohol Withdrawal?: No Have you ever Experienced Withdrawal Seizures?: No Have you ever Experienced Delirium Tremens(DT)s?: No Have you ever undergone Alcohol Rehabilitation Treatment (i.e, inpt ot outpatient treatment programs)?: No Have you ever Experienced Blackouts?: No Have you ever Combined Alcohol with other Downers within the last 90 days?: No Have you ever Combined Alcohol with any other Substance of Abuse during the last 90 days?: No Positive Blood Alcohol level on Presentation? [PCS.BAL]: No Evidence of Increased Autonomic Activity (i.e. HR>120, tremor, sweating, agitation, nausea)?: No Result: 0
--- NOTE | 2022-08-18 10:45 | DI.CT_ITS ---
Exam(s) CT ABDOMEN PELVIS W EXAM: CT ABDOMEN PELVIS W CLINICAL HISTORY: r/o abscess after sigmoid colectomy. TECHNIQUE: Imaging Protocol: Axial computed tomography images with coronal and sagittal reformatted images were created and reviewed CONTRAST MATERIAL: Intravenous: Omnipaque 350 Contrast volume:100 ml Oral: yes/ COMPARISON: CT CT CHEST PE CTA from 07/11/[address] ABDOMEN PELVIS W from 08/13/2022 FINDINGS: ABDOMEN: Lung Bases: Small bilateral pleural effusions. Mild adjacent atelectasis. Stable appearance of cyst at the posterior right lung base. The heart is mildly enlarged and shows severe coronary artery saurav cifications as well as pacemaker leads. Liver: Normal density. No measurable mass. Gallbladder and biliary tract: No radiodense calculus or dilation. Pancreas: Normal density, no abnormal calcifications or inflammatory process. Spleen: Normal. Kidneys: Normal size, contour and axis. No radiodense stones or obstructive uropathy. No masses seen. Adrenal glands: No masses seen. Abdominal Aorta: Abdominal portion non-dilated. Atherosclerotic changes. Soft tissues: Mild body wall edema. PELVIS: Bladder: Nearly empty.. No calculi.No focal mass. Bowel: A left lower quadrant ostomy is now seen which is unremarkable. No small bowel dilatation. N o bowel wall thickening.. Peritoneal cavity: A drainage catheter is now present coiled in the pelvis above the level of the simón dder. Minimal amount of ascites. No evidence of abscess. Bones: Rods in lower lumbar spine. Degenerative disc changes. No compression fracture.. Reproductive organs: Within normal limits. Lymph nodes: Unremarkable. Impression: Status post sigmoid resection with left lower quadrant ostomy.. No evidence of abscess, fluid collec tion or bowel obstruction. RADIATION DOSE DELIVERED: Total DLP DATA REPOSITORY: All CT scans at this facility are submitted to the National Radiology Data Registry (NRDR) Dose Index Registry (DIR) with the [employer] (A[employer]). RADIATION OPTIMIZATION: All CT scans at this facility use at least one of these dose optimization te chniques: automated exposure control; mA and/or kV adjustment per patient size (includes targeted exa ms where dose is matched to clinical indication); or iterative reconstruction.
[2022-08-18] MEDS: Oxymetazolone 0.05% SPRAY 15 ML BTL NS (11:00)
[2022-08-18] MEDS: Lidocaine 5% Patch 1 PATCH TP (11:01)
--- NOTE | 2022-08-18 11:47 | PDOC.CMDIS ---
- If Service Date Differs Date of service: 08/18/22 Time of Service: 11:47 LACE Index Scoring Tool - Questions: Length of Stay (in days): 4 - 6 Acuity (Admit via E.D.?): Yes Comorbidities: Chronic Pulmonary Disease E.D. Visits: 1 - Answers: Total Score: 10 Risk of Readmission: High Risk Care Management Discharge Reason for Hospitalization: Diverticulitis Discharge Plan: Isaiah will return home when ready per MD. Per RNGerry, he has engaged well with Ostomy teaching and prefers [employer] double click ostomy bags; CM relayed information to Home Health [facility]: [facility]. Isaiah will have new orders for [facility]NA RN upon discharge, ostomy supplies will be provided on discharge for use until VNA is able to provide supply. Isaiah will also follow up with PCP and surgical services and transport via private vehicle with family. Patient/Family Education Needs: Review discharge instructions, discuss Ask Me Three. Services Needed at Discharge: Home Health Care Services (RN: Ostomy teaching, management and supplies. )
[2022-08-18] MEDS: Breeza Beverage 473 ML BTL 900 ML PO (12:34)
[2022-08-18] MEDS: Omnipaque 350 MG/ML 500 ML BTL-Imaging package 100 ML IJ (12:35)
--- NOTE | 2022-08-18 16:38 | W.PM.DS.N ---
Date of service: 08/19/22 Time of Service: 07:36 DS: Diagnosis Discharge Diagnosis (1) Diverticulitis of colon with perforation: Status: Acute Asessment and Plan: Record the volume of fluid in your drain each day, write it down, and plan to bring it with you during your follow-up appointment on 08/26 Discharge Plan Disposition Patient Disposition: Home W/Home Health Services Condition: Good Discharge Details Reason For Visit: Diverticulitis Admit Date/Time: 08/13/22 15:01 Admit Provider: Jeff Ross Attending Provider: Jeff Ross Primary Care Provider: Blaire Delgado Hospital Course Hospital Course: Isaiah is a 72-year-old male who came to the emergency department with acute onset of lower abdominal pain. He underwent a CAT scan of the abdomen and pelvis that demonstrated acute diverticulitis. He was started on broad-spectrum antibiotics and admitted to the hospital. During the subsequent 36 hours, he developed an exacerbation of the abdominal pain, as well as fevers. Plain x-ray of his abdomen demonstrated free intraperitoneal air, and he was brought to the operating room for emergency laparoscopic Doran's procedure. His postoperative course was complicated by some low-grade temperatures. He underwent a CAT scan that demonstrated postsurgical changes, no signs of abscess or other infections. Home Meds and New Rx's Prescriptions: New tramadol 50 mg tablet 50 mg PO Q8H PRN (Reason: pain) Qty: 9 0RF Rx Instructions: take 1-2 tabs every 8 hours as needed for severe pain Continued vitamin B complex Tablet 1 tab PO DAILY Reishi Mushroom PO ginkgo biloba 40 mg tablet 40 mg PO Q2D Rx Instructions: give with meal/snack magnesium oxide 250 mg magnesium tablet 250 mg PO Q2D turmeric 400 mg capsule 400 mg PO Q7D aspirin 81 mg tablet,delayed release (DR/EC) 81 mg PO DAILY sildenafil (pulm.hypertension) 20 mg tablet 60 mg PO ONCE PRN (Reason: sexual activity) Qty: 30 0RF rosuvastatin 5 mg tablet 5 mg PO DAILY Qty: 90 3RF multivitamin [Daily Multi-Vitamin] Tablet 1 tab PO DAILY Qty: 1 tamsulosin 0.4 mg capsule 0.4 mg PO QHS Qty: 30 2RF epinephrine [EpiPen 2-Hang] 0.3 mg/0.3 mL auto-injector 0.3 mg IM ONCE Qty: 2 2RF Rx Instructions: as a single dose; may repeat once Discharge Instructions Instructions: Colostomy Care (DC), Colostomy Creation (DC) Additional Instructions: 1. Resume all of your medications. 2. Okay to use tylenol and ibuprofen over the counter as needed. 3. Use oxycodone as needed for severe pain. 5. Wash daily with warm soapy water. Pat dry. Showering is fine. 6. No soaking or tub baths until I see you in the office. 7. No heavy lifting until I see you in the office. 8. Call the office (or go directly to the emergency room after hours) if you notice any of the following: Develop chills (warm to touch), or if you have a thermometer and your temperature is above 101 Difficulty breathing or difficultly swallowing Persistent vomiting Any bleeding ? exceeding one tablespoon 6. Call your physician if the site where your intravenous was started becomes red, swollen, painful, and warm to touch. Referrals: Sarkis Sauer MD [ [facility] STAFF PHYSICIAN] - (08/27 at 3:15 PM ) Activity:: No heavy lifting Equipment/Supplies:: Stoma supplies Diet:: As Tolerated Discharge Orders Discharge Orders: Discharge Order (Routine); Ordered 08/19/22 Ordered By: Sarkis Sauer DS: Summary Time Spent with Patient providing and/or coordinating discharge services: Less than 30 minutes Status at Discharge Functional status at discharge: independent ambulation Overall status at discharge: patient is progressing back to baseline Mental Status: mental status grossly normal Speech and Movement: speech and movement normal Mood: congruent mood Affect: normal affect Exam Const General: cooperative, healthy appearing and comfortable Orientation: awake and oriented x3 Eyes General: appearance normal, both eyes and all related structures Conjunctivae: conjunctivae normal Sclera: sclerae normal Resp Effort & Inspection: normal respiratory effort and able to speak in complete sentences Cardio Jugular venous pressure: no JVD Rate: regular rate GI Inspection: non-distended Palpation: soft, no guarding, no hernias and nontender Auscultation: normal bowel sounds Other: stoma is pink and working fine Skin General skin exam: normal turgor Neuro General: patient alert, patient awake and patient oriented x3 Cognition: normal cognition Extrem Right lower extremity: no edema Left lower extremity: no edema Psych Mental Status: mental status grossly normal Speech and Movement: speech and movement normal Mood: congruent mood Affect: normal affect DS: Data Vitals/I&O Vitals and I&O: Vital Signs Temperature 99.5 F 08/18/22 15:58 Temperature Source Tympanic 08/18/22 15:58 Pulse 68 08/18/22 15:58 Pulse Rhythm Regular 08/18/22 16:14 Pulse 69 08/15/22 08:50 Respiratory Rate 16 08/18/22 15:58 Respiratory Effort 08/18/22 16:14 Respiratory Depth Normal 08/18/22 16:14 Respiratory Pattern Normal 08/18/22 16:14 Blood Pressure 175/96 H 08/18/22 15:58 Blood Pressure Mean 109 08/16/22 09:54 Blood Pressure Position Supine 08/14/22 21:50 Pulse Oximetry 97 08/18/22 15:58 Oxygen Delivery Method Room Air 08/18/22 15:58 Oxygen Flow Rate 0 08/18/22 15:58 Pain Level 2 08/18/22 15:58 Comment 08/17/22 11:13 Intake & Output 08/17/22 08/18/22 08/18/22 23:59 11:59 23:59 Intake Total 150 / 1548.75 590 / 590 Output Total 350 / 380 30 / 380 Balance 150 / 318.75 240 / 210 -30 / 210 Intake: IV 100 / 1258.75 110 / 110 Oral 50 / 290 480 / 480 Output: Drainage 30 / 30 Mid Anterior Abdomen 30 / 30 Stool 350 / 350 Other: Urine Color Yellow Yellow Urine Odor Normal Normal Comment Unmeasured urine amount. pt is independently urinating Pt voiding independently Voiding Methods Toilet Toilet Toilet Data Completed and Pending Labs on day of discharge: Labs from last 24 hours 08/18/22 05:42 WBC 10.06 RBC 3.69 L Hgb 12.2 L Hct 34.9 L MCV 95 MCH 33.1 H MCHC 35.0 RDW 12.2 Plt Count 221 MPV 9.0 PFSH All Active Problems Diverticulitis of colon with perforation (Acute) Bilateral sensorineural hearing loss (Acute) Emphysema of lung (Chronic) Raynauds disease (Chronic) Employment problem (Acute) Tubular adenoma of colon (Acute 07/19/09) on colonoscopy in 2008 and 2021 Elevated BP without diagnosis of hypertension (Chronic) follows at home - 126/73. 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 Father No problems noted. Sister No problems noted. Sister No problems noted. Brother No problems noted. Daughter No problems noted. Daughter No problems noted. Daughter No problems noted. Daughter No problems noted. Social History Smoking/Tobacco Use Status: Former Tobacco Use Smoking risk assessment performed?: Yes Alcohol Intake: current Alcohol Intake frequency: 3 or more drinks per day Alcohol type: beer, wine and hard liquor Drug use: Occasionally Substance use type: marijuana Details: Pt reports last using marijuana 3 weeks ago. 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 What is your relationship status?: Panel score (0-1 are the most socially isolated patients): 0 Do you feel safe at home: Yes (Lives alone) Do you feel safe in your relationship?: Yes
[2022-08-18 17:59] LABS: Bilirubin Negative (Negative); Blood Negative (Negative); Clarity Clear (Clear); Glucose Negative (Negative); Ketones Negative (Negative); Leukocyte Esterase Negative (Negative); Nitrite Negative (Negative); Specific Gravity 1.015 (1.005-1.025); Urobilinogen 0.2 EU/dL (Up TO 0.2)
[2022-08-18] MEDS: Rosuvastatin 5 MG TAB PO (20:03)
[2022-08-19] MEDS: Heparin 5,000 UNITS/ML VIAL 5000 UNITS SC (03:00)
[2022-08-19 07:42] VITALS: BP 171/99; PULSE 69; RESP 18; TEMP 36.6; O2SAT 97
[2022-08-19] MEDS: Tamsulosin 0.4 MG CAPCR PO (08:46)
[2022-08-19 09:30] VITALS: BP 160/90
--- NOTE | 2022-08-20 14:41 | NUR.NOTE ---
Paged Dr. Sauer earlier this am that pt needs ostomy supplies sent to [place], [place] where he is currently staying with his Brother. States he did not receive supplies upon discharge and Home Health won't begin until next week. Received another call from pt stating that [facility] is unable to fill his order until next week and by then he will be back home in the area. Can warp picker supplies on Thursday of next week. Paged Dr. Sauer and discussed situation. Pt uses 2 11/29 [employer] item #[id number] and flex # [id number]. Dr. Sauer will call the pt and have pt warp picker supplies at the surgical office. Care Management also informed of the situation to assist in future ordering.
== END 2022-08-19 09:33 | disposition home health service (06) | DRG 329 ==
LOC: ER 15:32 → MS 16:20 → ICU 08-14 22:00 → MS 08-17 10:33
PROVIDERS: Surgery; Admitting Provider Student in an Organized Health Care Education/Training Program; Emergency Provider Physician Assistant; PCP Family Medicine; Visit Provider Student in an Organized Health Care Education/Training Program
PROC: 0DTN4ZZ Resection of Sigmoid Colon, Percutaneous Endoscopic Approach (ICD-10-PCS; CPT 49320; 2022-08-14 18:20)
DX: K57.20 Diverticulitis of large intestine with perforation and abscess without bleeding (principal); K65.0 Generalized (acute) peritonitis; D62 Acute posthemorrhagic anemia; H90.3 Sensorineural hearing loss, bilateral; J43.9 Emphysema, unspecified; I65.8 Occlusion and stenosis of other precerebral arteries; Z86.010 Personal history of colon polyps; N40.3 Nodular prostate with lower urinary tract symptoms; Z95.0 Presence of cardiac pacemaker; I49.5 Sick sinus syndrome; Z98.1 Arthrodesis status; Z87.891 Personal history of nicotine dependence; R50.82 Postprocedural fever
CPT/HCPCS: 44206; 36410; 36415; 80048; 80053; 80076; 83690; 85027; 87040; 87635; 96361; 96365; 96375; 96376; 99222; 99232; 99285; 74018; 74019; 74177; 81003; 83605; 85025; 88307; J0131; J1100; J1170; J1644; J1885; J2270; J2405; J2543; J2704; J3010; J3490

== ENCOUNTER → 2022-08-26 10:51 | Outpatient (BNVA) | payer MEDICARE, SELFPAY | PROVIDERS: PCP Family Medicine; Referring Provider Family Medicine; Visit Provider Nurse Practitioner Gerontology | DX: N40.1 Benign prostatic hyperplasia with lower urinary tract symptoms (principal); R35.1 Nocturia; R97.20 Elevated prostate specific antigen [PSA]; N40.2 Nodular prostate without lower urinary tract symptoms | CPT/HCPCS: 99215 ==

== ENCOUNTER → 2022-08-27 15:07 | Outpatient (BNVA) | payer MEDICARE, SELFPAY | PROVIDERS: PCP Family Medicine; Referring Provider Family Medicine; Visit Provider Surgery | DX: Z48.815 Encounter for surgical aftercare following surgery on the digestive system (principal) ==

== ENCOUNTER → 2022-09-10 14:13 | Outpatient (BNVA) | payer MEDICARE, SELFPAY | PROVIDERS: PCP Family Medicine; Referring Provider Family Medicine; Visit Provider Surgery | DX: Z48.815 Encounter for surgical aftercare following surgery on the digestive system (principal); K57.20 Diverticulitis of large intestine with perforation and abscess without bleeding ==

== ENCOUNTER 2022-09-30 03:36 | Outpatient (CLI) | payer MEDICARE, SELFPAY ==
[2022-09-30 19:27] LABS: PSA, Diagnostic 9.7 ng/mL (<=6.5)
== END 2022-09-30 03:37 | disposition home or self-care (01) ==
LOC: LBO 03:36
PROVIDERS: PCP Family Medicine; Visit Provider Nurse Practitioner Gerontology
DX: N40.2 Nodular prostate without lower urinary tract symptoms (principal); R97.20 Elevated prostate specific antigen [PSA]
CPT/HCPCS: 36415; 84153

== ENCOUNTER → 2022-10-01 08:21 | Outpatient (BNVA) | payer MEDICARE, SELFPAY | PROVIDERS: PCP Family Medicine; Referring Provider Family Medicine; Visit Provider Surgery | DX: Z48.815 Encounter for surgical aftercare following surgery on the digestive system (principal); K57.20 Diverticulitis of large intestine with perforation and abscess without bleeding ==

== ENCOUNTER → 2022-10-07 09:58 | Outpatient (BNVA) | payer MEDICARE, SELFPAY | PROVIDERS: PCP Family Medicine; Referring Provider Family Medicine; Visit Provider Nurse Practitioner Gerontology | DX: R97.20 Elevated prostate specific antigen [PSA] (principal); N40.2 Nodular prostate without lower urinary tract symptoms | CPT/HCPCS: 99214 ==

== ENCOUNTER 2022-10-20 06:09 | Inpatient (IN) | payer MEDICARE, SELFPAY ==
[2022-10-20] VITALS (20 sets, daily range): BP systolic 87–144; BP diastolic 50–93; PULSE 51–65; RESP 12–24; TEMP 35.1–37.5; O2SAT 91–100; BMI 23.9
[2022-10-20 06:27] LABS: Source Nasal/Nares
[2022-10-20] MEDS: Lactated Ringers 1,000 ML 80 ML IV (06:42)
[2022-10-20 06:58] LABS: COVID-19 PCR Negative (Negative)
--- NOTE | 2022-10-20 06:59 | W.ANESPRE ---
General Info Date of Service Date Performed: 10/20/22 Height: 5 ft 9.5 in Weight: 74.7 kg Body Mass Index (BMI): 23.9 Surgical Procedure: Operation Date: 10/20/22 07:50 Proposed Procedure Side Surgeon p Colostomy Closing Laparoscopic Sarkis Sauer MD Meds Allergies and Home Medications Allergies Allergy/AdvReac Type Severity Reaction Status Date / Time bee venom protein (honey bee) Allergy Mild swelling Verified 10/20/22 06:39 of the upper lip. cephalexin Allergy Pt unsure Verified 10/20/22 06:39 what happens Home Medication Medication Instructions Recorded epinephrine 0.3 mg/0.3 mL 0.3 mg (0.3 mL) IM ONCE 06/20/19 injection, auto-injector (EpiPen anaphylaxis #2 ea 2-Hang) aspirin 81 mg tablet,delayed 81 mg PO DAILY 06/05/21 release multivitamin (Daily Multi-Vitamin 1 tab PO DAILY ##1 06/27/22 tablet) rosuvastatin 5 mg tablet 5 mg PO DAILY #90 tabs 06/27/22 sildenafil (pulm.hypertension) 20 60 mg PO ONCE PRN sexual activity 06/27/22 mg tablet #30 tabs tamsulosin 0.4 mg capsule 0.4 mg PO QHS #90 caps 09/16/22 bisacodyl 5 mg tablet,delayed 5 mg PO ONCE colonscopy bowel prep 10/01/22 release (Dulcolax (bisacodyl)) #8 tabs food supplemt, lactose-reduced See Rx Instructions PO .COMPLEX 10/01/22 (Ensure Clear oral liquid) #888 mL metronidazole 500 mg tablet 500 mg PO .COMPLEX #8 tabs 10/01/22 neomycin 500 mg tablet 500 mg PO DIRECTED 10/01/22 ondansetron HCl 8 mg tablet 24 mg PO DIRECTED 10/01/22 polyethylene glycol 3350 17 238 g PO ONCE colonoscopy prep 10/01/22 gram/dose oral powder #238 grams levofloxacin 500 mg tablet 500 mg PO DAILY #3 tabs 10/07/22 Current Visit Medications: Current Medications Generic Name Dose Route Start Last Admin Trade Name Freq PRN Reason Stop Dose Admin Acetaminophen 1,000 mg 10/20/22 06:00 Acetaminophen 500 Mg Tab PO 11/16/22 23:59 PREOP RADHA Celecoxib 200 mg 10/20/22 06:00 Celecoxib 200 Mg Cap PO 11/16/22 23:59 PREOP RADHA Gabapentin 300 mg 10/20/22 06:00 Gabapentin 300 Mg Cap PO 11/16/22 23:59 PREOP RADHA Ringer's Solution 1,000 mls @ 80 mls/hr 10/20/22 06:00 IV 11/16/22 23:59 INFUSION RADHA Vancomycin/PEG/NADA/Lysine/Water 1 gm in 200 mls @ 133.333 mls/hr 10/20/22 06:00 Vancocin Injection IVPB 10/20/22 23:59 PREOP RADHA Metronidazole 500 mg in 100 mls @ 100 mls/hr 10/20/22 06:00 Flagyl IVPB 10/20/22 18:00 PREOP RADHA IV Miscellaneous Supplies 1 each 10/20/22 06:00 Iv Access IV 11/16/22 23:59 DIRECTED RADHA Sodium Chloride 0 ml 10/20/22 06:00 Normal Saline Flush 10 Ml Syr IV 11/16/22 23:59 PRN PRN Sodium Chloride 0 ml 10/20/22 06:00 Normal Saline 10 Ml Vial IJ 11/16/22 23:59 DIRECTED PRN Sterile Water 0 ml 10/20/22 06:00 Water,Injection,Sterile 10 Ml Vial IJ 11/16/22 23:59 DIRECTED PRN PFSH Active Problems Active Problems: Problem Status Onset Code Emphysema of lung J43.9 Raynauds disease I73.00 Employment problem Tubular adenoma of colon 07/19/09 D12.6 Elevated BP without diagnosis of hypertension R03.0 Elevated PSA, less than 10 ng/ml R97.20 Cardiac pacemaker in situ Z95.0 Nodular prostate with urinary obstruction N40.3, N13.8 Hearing impairment H91.90 Bilateral sensorineural hearing loss H90.3 Diverticulitis of colon with perforation K57.20 Medical History Medical History (Updated 10/20/22 @ 06:55 by Rosa Maria Borrego) AV block, 3rd degree Hx of diverticulitis of colon Pneumothorax, left Rib fracture Medical History Comments:: [place]emaker [place] [facility]. 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 - at [facility] Tobacco Smoking/Tobacco Use Status: Former Tobacco Use Alcohol Alcohol Intake: current Alcohol intake frequency: 3 or more drinks per day Alcohol type: beer, wine and hard liquor Substance Use Substance use: Occasionally Substance use type: marijuana Vital Signs and Lab Results Vital Signs Most Recent Vital Signs in EMR: Most Recent Vital Signs Temp Pulse Resp BP Pulse Ox 36.6 C 53 L 16 129/93 H 100 10/20/22 06:49 10/20/22 06:49 10/20/22 06:49 10/20/22 06:49 10/20/22 06:49 Lab Results Blood Type / Crossmatch: No Data to Display Complete Blood Count: No Data to Display Complete Metabolic Panel: No Data to Display Liver Function Panel: No Data to Display Coagulation Panel: No Data to Display Cardiac Panel: No Data to Display Arterial Blood Gas: No Data to Display Venous Blood Gas: No Data to Display Pancreas Panel: No Data to Display Thyroid Panel: No Data to Display Infectious Disease: Coronavirus 2019 Source Nasal/Nares 10/20/22 06:20 Blood Cultures: No Data to Display Toxicology Panel: No Data to Display Imaging and Studies Imaging and Studies Study information below may be from another EMR and interpreted by another provider. Please see original notes in EMR for more complete details. Echocardiogram Summary: 2020: LVEF 67%, no hemodynamically sig valvular dz. Anesthesia Assessment and Plan Anesthesia History Personal History: No History of Anesthesia Complications Family History: Family History Unknown Exercise Tolerance Exercise Tolerance: Metabolic Equivalents>4 Pertinent Negatives Pertinent Negatives: No Symptoms of GERD Cardiac & Pulmonary Exam Cardiac Exam: Normal S1/S2 Heart Sounds Pulmonary Exam: Clear Bilateral Breath Sounds Implantable Cardiac Device Does patient have a Pacemaker or an ICD?: Yes Device Wagon Drill Operator:: NuPathe [id number] RENARD XT DR ORTIZ Reason for Placement:: AV BLOCK, 3RD DEGREE Date of Last Device Interrogation:: 08/20/22 Airway Exam Known Difficult Airway: No Mallampati Class: 1 Mouth Opening: Normal (> 3cm) Thyromental Distance: Greater than 3 cm Neck Range of Motion: Full ROM Neck Circumference: Normal Teeth Condition: Normal Dentition ASA Classification ASA Score: ASA 3 Emergency Case?: No NPO Status NPO Status: NPO Clears >2 hours, Solids >8 hours Anesthesia Plan Resuscitation Status: Full Code Anesthesia Technique: General Anesthesia Airway Planned: Endotracheal Tube Monitors Used: Standard Monitors
[2022-10-20] MEDS: metroNIDAZOLE 500 MG/100 ML BAG 100 MG IVPB (07:00)
[2022-10-20] MEDS: Celecoxib 200 MG CAP PO (07:30)
[2022-10-20] MEDS: Acetaminophen 500 MG TAB 1000 MG PO ×3 (07:30→22:05)
[2022-10-20] MEDS: Gabapentin 300 MG CAP 600 MG PO (07:30)
--- NOTE | 2022-10-20 07:30 | NUR.NOTE ---
0715: aware pt. did not take whole dose of preop antibioiticsNursing Note:
[2022-10-20] MEDS: Heparin 5,000 UNITS/ML VIAL 5000 UNITS SC (07:43)
[2022-10-20] MEDS: VANCOMYCIN/WATER (PEG) 2 GM/400 ML BAG IVPB (07:48)
--- NOTE | 2022-10-20 07:53 | NUR.NOTE ---
0740: Vancomycin 2 gm sent to OR with circulating nurse Nicole Berg RN. Flagyl infusing during transfer to [facility] Note:
--- NOTE | 2022-10-20 09:30 | BOWEL_PTH ---
PATIENT: Isaiah Irizarry LOC: U#:[id number] AGE/SX: 72/M ROOM: 214 RE10/20/[address]: Sarkis Sauer MD : 1950 BED: A DIS: 10/25/2022 SPEC #: [id number] RECD: 10/20/22 17:10 STATUS: HILDA REQ #: [id number] SILVINA: 10/20/22 09:[address]: Sarkis Sauer DEPT: Surgical Specimen RECD BY: Mary Padilla ENTERED: 10/20/22 17:11 SP TYPE: Bowel OTHR DR: Blaire Delgado Tissues: 1 - BOWEL/OSTOMY STOMA 2 - BOWEL RESECTION(OTHER) Procedures: GROSS AND MICRO LEVEL 3 Comments: [id number]
[2022-10-20] MEDS: Bupivacaine 0.5% Pres-Free W/EPI 30 ML VIAL (10:33)
--- NOTE | 2022-10-20 11:23 | W.PM.OP ---
Date of service: 10/20/22 Time of Service: 11:23 Operative Note Operative Note DATE OF PROCEDURE: 10/20/22 PRE-OP DIAGNOSIS: Doran's colostomy for sigmoid diverticulitis POST-OP DIAGNOSIS: same PROCEDURE: Laparoscopic sigmoid colectomy with low anterior resection SURGEON: Sarkis Sauer ASSISTING SURGEON: Jeff Ross GUT SORTER: Bettina Yanes ANESTHESIA TYPE: Local By Surgeon and General LMA/ETT Refer to Anesthesia Record ESTIMATED BLOOD LOSS: 100 PATHOLOGY: other (Low anterior resection, colostomy) COMPLICATIONS: None Patient was transported to: PACU Patient's condition: stable Indications: Isaiah is a 9-year-old male who has a history of perforated diverticulitis. He underwent laparoscopic Doran's procedure. He is here for elective reversal of his Doran's colostomy. Procedure Description: After the induction of general endotracheal anesthesia, a Arana urinary catheter was placed. Next, the patient was placed in lithotomy positioning. Great care was taken to pad all the points of contact. I began with flexible sigmoidoscopy to examine the distal rectal stump. After digital rectal examination which was normal, I inserted a standard colonoscope into the rectal pouch. Using gentle insufflation, I advanced the scope up to the previous staple line. Everything looked healthy, there was no evidence of stricture, mass, or other concerning findings. The anterior abdominal wall was then prepped and draped in the usual fashion. The stoma was controlled with a gauze and occlusive dressing. Next, using a Veress needle, pneumoperitoneum was established in the left upper quadrant. 5 mm optical viewing port was then used to introduce a 5 mm 30 degree scope into the right lower quadrant. Next, 5 mm scope were placed in the infraumbilical position, as well as the right lower quadrant position. The patient was then tilted into Trendelenburg position, with the left side slightly down. We began by dissecting some filmy adhesions using the LigaSure device. Dissection was carried out down into the pelvis, as the small bowel was mobilized up into the upper abdomen. Once this was complete, we turned our attention to isolation of the rectal stump. Previously placed Prolene suture was identified, and used to elevate the distal sigmoid colon and rectal stump towards the anterior abdominal wall. Next, the peritoneal reflections of the rectal mesentery were dissected, and divided using the LigaSure device. The dissection was carried down towards the mesorectum, and up around the anterior portion of the proximal rectum. Great care was taken to identify mesorectal vessels, and they were all separately divided with sequential fires of the LigaSure. Once the dissection was carried down onto the proximal rectum, and a healthy appearing target for anastomosis was identified, we turned our attention to mobilization of the distal descending colon. This by removing the external Bioclusive dressing and gauze. Next, ostomy was mobilized off the skin using sharp dissection down through healthy appearing skin taking great care to ensure that the mucocutaneous border was completely excised. This dissection was carried down through the subcutaneous fat to the level of the fascia. Allis clamps were used to control the end of the colostomy. The surrounding fascia was completely excised back to healthy tissue, and the end of the colostomy was elevated up out of the previous colostomy site. The distal portion of the colostomy was then divided, and the anvil of the 28 mm EEA stapler was gently introduced in a retrograde fashion into the end segment of healthy colon. There was no evidence of significant diverticulosis in the area. A Prolene stitch was then used to secure the anvil in place. Small amount of adjacent fat was gently mobilized back to healthy tissue. Once this was complete, the end colostomy and anvil were then reintroduced back into the peritoneal cavity. An Hector GelPort wound retractor was then placed. We turned our attention back to dissection of the peritoneal cavity. At this point, I did mobilize some of the peritoneal reflection of the descending colon to allow appropriate mobilization and placement of the anvil down into the pelvis. Next, all port, a 45 mm Endo MADELYN stapler was introduced down into the pelvis. The rectal stump was elevated, and the stapler was used to divide the remainder of the distal sigmoid colon as well as the proximal rectum. This portion of the colon was then removed from the peritoneal cavity and passed off the field as a specimen. Once this was complete, we examined the surgical field. It was hemostatic. The distal staple line was healthy. There was no significant bleeding. It appeared well vascularized. The anvil laid against the distal rectal stump without any tension. Next, the 28 mm EEA stapler was introduced through the anus into the rectal cavity and up into the surgical field as visualized by the laparoscope. Great care was taken to ensure that the rectal stump was not twisted and the mesentery was under no tension. Next, the stapler spike was advanced out through the anterior wall of the rectum under the direct vision laparoscope up into the operative field. The anvil was then secured according to the stripper printed circuit boards's instructions. Again great care was taken to ensure appropriate anatomic alignment of the descending colon onto the rectal stump. The EEA stapler was then fired according to the stripper printed circuit boards's instructions. The stapler was released, and removed from the anus. There were 2 complete donuts left on the anvil. Next, the surgical field was irrigated. The pelvis was then filled with saline, and the colonoscope was reintroduced into the rectal stump. Under the direct vision of the colonoscope, we advanced to the staple line. It was gently irrigated. It was complete. There was no evidence of any bubbles within the pelvis. The colonoscope was then removed. Next, we introduced a 15 mm round surgical drain into the pelvis adjacent to the anastomosis. This was brought out through the right lower quadrant 5 mm port site. The drain was secured to the skin with a drain stitch. All of the bowel was then allowed to retract it was normal anatomic positioning. The ports were removed under the direct vision of the laparoscope. The GelPort was then removed, and the fascia was closed with interrupted 2-0 PDS stitches. The overlying deep subcutaneous tissues were irrigated. The deep space was obliterated with interrupted Vicryl stitches, and the skin was gently closed with interrupted nylon suture. The other port sites were then irrigated, and the skin was approximated with absorbable subcuticular stitches. Patient was then awakened from anesthesia and transferred to the recovery unit.
[2022-10-20] MEDS: Normal Saline 10 ML VIAL IJ (12:09)
[2022-10-20] MEDS: HYDROmorphone 2 MG/ML SYR IVP (12:09)
--- NOTE | 2022-10-20 13:14 | W.ANESPOSTOP ---
Postoperative Evaluation Date, Time and Location Date Performed: 10/20/22 Time Performed: 13:05 Patient Location: PACU Vital Signs Most Recent Imported Vital Signs: Most Recent Vital Signs Temp Pulse Resp BP Pulse Ox 35.5 C L 58 L 16 123/81 97 10/20/22 13:01 10/20/22 13:01 10/20/22 13:01 10/20/22 13:01 10/20/22 13:01 Pain Score Most Recent Pain Score: Most Recent Pain Score Pain Level 6 10/20/22 13:01 Assessment Mental Status: Awake (Alert & Oriented to Patient Baseline) Airway and Respiratory Function: Patent airway with normal (patient baseline) respiratory exam Cardiovascular Function: Hemodynamically Stable Hydration Status: Adequately Hydrated Nausea & Vomiting: No Nausea or Vomiting Pain: Pain is tolerable per patient Peripheral Nerve Block: Patient did not receive a nerve block
[2022-10-20] MEDS: Enoxaparin 40 MG/0.4 ML SYR SC (15:46)
[2022-10-20] MEDS: MORPHine 2 MG/ML SYR IVP (20:28)
[2022-10-20] MEDS: Lactated Ringers 1,000 ML 75 ML IV (22:01)
[2022-10-20] MEDS: Lactated Ringers 1,000 ML 1000 ML IV (22:20)
[2022-10-21] MEDS: MORPHine 2 MG/ML SYR IVP ×5 (00:21→17:49)
[2022-10-21 01:28] VITALS: BP 108/68; PULSE 64; RESP 22; TEMP 36.5; O2SAT 96
[2022-10-21 01:49] LABS: HCT 32.3 % (40.0-50.0); MCH 32.4 pg (27.0-33.0); MCHC 34.1 % (32.0-36.0); MCV 95 fL (80-95); Platelet Count 184 10^3/uL (130-400); RBC 3.39 10^6/uL (4.36-5.78); RDW 12.1 % (11.8-14.1); RDW-SD 42.5 fL; WBC 12.93 10^3/uL (4.4-10.8)
[2022-10-21] MEDS: Lactated Ringers 1,000 ML 1000 ML IV (02:25)
[2022-10-21] MEDS: Acetaminophen 500 MG TAB 1000 MG PO ×3 (06:13→21:28)
[2022-10-21 06:50] LABS: HCT 28.2 % (40.0-50.0); HGB 9.8 g/dL (13.5-17.5); MCH 32.6 pg (27.0-33.0); MCHC 34.8 % (32.0-36.0); MCV 94 fL (80-95); Platelet Count 199 10^3/uL (130-400); RBC 3.01 10^6/uL (4.36-5.78); RDW 12.3 % (11.8-14.1); RDW-SD 42.7 fL; WBC 12.75 10^3/uL (4.4-10.8)
[2022-10-21 06:57] VITALS: BP 104/71; PULSE 81; RESP 14; TEMP 36.4; O2SAT 97
[2022-10-21 07:05] LABS: Anion Gap 9.4 mmol/L (3-11); BUN 28 mg/dL (7-18); CO2 23.6 mmol/L (21.0-32.0); CREATININE 1.3 mg/dL (0.70-1.30); Calcium 8.1 mg/dL (8.5-10.1); Chloride 101 mmol/L (98-107); Glucose 130 mg/dL (74-106); Potassium 4.2 mmol/L (3.5-5.1); Sodium 134 mmol/L (136-145)
--- NOTE | 2022-10-21 07:26 | W.PM.PROGNOT ---
Date of Service Date of service: 10/21/22 Time of Service: 07:26 Assessment and Plan Assessment and plan (1) History of colostomy reversal: Status: Acute Assessment and plan: I suspect this is anastomotic bleeding. Hemoglobin this morning is down about another gram. Hopefully, this will plateau through the day. Since 1 AM he is only had one other episode of some bloody bowel movement. I will hold the Lovenox this morning, and repeat another hemoglobin this afternoon. Hopefully this will be self-limited. If he has ongoing bleeding, or any evidence of hemodynamic changes, then we will plan for colonoscopy and direct visualization of the anastomosis. Subjective Subjective Interval history since last seen: Isaiah had some bleeding from his anus overnight. He had several large-volume bloody bowel movements. Hemoglobin overnight dropped about a gram from his last measurement. Hemodynamics remained favorable. Exam GI Palpation: soft, no guarding and tender Rectal Exam: visual inspection normal and normal sphincter tone Objective Last Vital Signs Temp 97.5 F L 10/21/22 06:57 Pulse 81 10/21/22 06:57 Resp 14 10/21/22 06:57 BP 104/71 10/21/22 06:57 Pulse Ox 97 10/21/22 06:57 Laboratory Results - last 24 hr 10/21/22 10/21/22 10/21/22 01:40 01:40 06:30 WBC 12.93 H RBC 3.39 L Hgb 11.0 L Hct 32.3 L MCV 95 MCH 32.4 MCHC 34.1 RDW 12.1 Plt Count 184 MPV 9.0 Sodium 134 L Potassium 4.2 Chloride 101 Carbon Dioxide 23.6 Anion Gap 9.4 BUN 28 H Creatinine 1.3 Est GFR (CKD-EPI 2020) 59.10 Glucose 130 H Calcium 8.1 L Patient ABO/Rh AB Positive Antibody Screen NEGATIVE Crossmatch See Detail 10/21/22 06:30 WBC 12.75 H RBC 3.01 L Hgb 9.8 L Hct 28.2 L MCV 94 MCH 32.6 MCHC 34.8 RDW 12.3 Plt Count 199 MPV 9.0 Sodium Potassium Chloride Carbon Dioxide Anion Gap BUN Creatinine Est GFR (CKD-EPI 2020) Glucose Calcium Patient ABO/Rh Antibody Screen Crossmatch Time Spent with Patient Time Spent with Patient: 25-34 minutes Time was spent: ordering medications,tests, procedures, indepentently interpreting results and counseling the patient
[2022-10-21 07:57] VITALS: BP 111/69; PULSE 58; RESP 17; TEMP 36.5; O2SAT 97
[2022-10-21] MEDS: Calcium Carbonate *TUMS* 500 MG CHEW PO ×2 (08:16→19:03)
[2022-10-21] MEDS: Psyllium PKT 1 EACH PO (08:16)
[2022-10-21] MEDS: traMADol 50 MG TAB PO ×2 (08:17→14:04)
[2022-10-21] MEDS: Tamsulosin 0.4 MG CAPCR PO (08:17)
[2022-10-21] MEDS: Normal Saline Flush 10 ML SYR IV (08:18)
--- NOTE | 2022-10-21 08:47 | PDOC.CMIN ---
- If Service Date Differs Date of service: 10/21/22 Time of Service: 08:47 Care Management Initial Assess REASON FOR HOSPITALIZATION:: colostomy reversal PAST MEDICAL HISTORY/PAST SURGICAL HISTORY:: All Active Problems . Diverticulitis of colon with perforation (Acute). Bilateral sensorineural hearing loss (Acute). Emphysema of lung (Chronic). Raynauds disease (Chronic). Employment problem (Acute). Tubular adenoma of colon (Acute 07/19/09). on colonoscopy in 2008 and 2021. Elevated BP without diagnosis of hypertension (Chronic). follows at home - 126/73. Elevated PSA, less than 10 ng/ml (Acute). Cardiac pacemaker in situ (Acute). [employer] [id number]. Indication: Sick sinus syndrome. Last Interrogation: 11/19/21. Nodular prostate with urinary obstruction (Acute). Hearing impairment (Acute). Medical History . Pneumothorax, left. Rib fracture. Surgical History . History of colonoscopy with polypectomy (~02/21/22). Status post cardiac pacemaker procedure (~2017). managed by [facility]. Status post lumbar spinal fusion (~2010). 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 He has 4 daughters all of whom live out of [facility]. He also has a brother Sarkis who lives in [place] who is very supportive. Isaiah is retired and is independent at baseline. He has no running water or electricity and cares for his home by himself. CURRENT FUNCTIONAL STATUS:: Isaiah was sitting up in bed visiting with his daughter Lisa when CM met with him. He was pleasant and engaged easily with CM. Lisa is here visiting from [place] and her twin sister Yana lives in [place]. Isaiah was having a lot of abdominal discomfort during the visit and requested pain medication from his nurse. He denied the need for services but is open to them if recommended. He did share that he plans to go stay with his brother when he leaves the hospital as he does not have running water or electricity. His daughter encouraged him to remain with his brother through the winter. Isaiah was noncommital about that plan. ADVANCE DIRECTIVES:: none on file Has patient been provided with info about the portal/API?: Yes Did the patient sign up for the portal?: No CODE STATUS:: Full Code INSURANCE COVERAGE / FINANCIAL ISSUES:: Medicare. [employer] CURRENT HOME/COMMUNITY SERVICES/EQUIPMENT:: none PRIMARY CARE PHYSICIAN:: Blaire Delgado POTENTIAL DISCHARGE NEEDS:: follow up with PCP and plan of care PATIENT/FAMILY EDUCATION NEEDS:: Review of discharge instructions, limitations, follow up plan, activity, diet, discuss Ask Me Three TRANSPORTATION:: via private vehicle with friend/family PLAN:: Anticipate Isaiah will discharge to his brother Sarkis's home in [place], possibly with new home health services, when medically cleared by provider. He will follow up with his surgeon, PCP and plan of care and transport with his brother. CM will support Isaiah and his discharge planning needs.
[2022-10-21 11:40] VITALS: BP 116/77; PULSE 68; RESP 14; TEMP 36.6; O2SAT 96
[2022-10-21 12:27] LABS: HGB 9.4 g/dL (13.5-17.5)
--- NOTE | 2022-10-21 12:51 | PHA.REVIEW2 ---
Pharmacy Admission Review - Admission Clinical Review (Last Reviewed 10/20/22 @ 06:53 by Rosa Maria Borrego) History of colostomy reversal (Acute) bee venom protein (honey bee) Allergy (Mild, Verified 10/20/22 06:39) swelling of the upper lip. cephalexin Allergy (Verified 10/20/22 06:39) Pt unsure what happens Resuscitation Status Full Code Height 5 ft 9.5 in Weight 74.7 kg - Renal Dosing Renal Dosing: BUN 28 mg/dL (7-18) H 10/21/22 06:30 Creatinine 1.3 mg/dL (0.70-1.30) 10/21/22 06:30 Medications needing adjustments: Reviewed (Crcl ~55 mL/min current meds okay) - Anticoagulation Anticoagulation: Hgb 9.4 g/dL (13.5-17.5) L 10/21/22 12:10 Hct 28.2 % (40.0-50.0) L 10/21/22 06:30 Plt Count 199 10^3/uL (130-400) 10/21/22 06:30 Creatinine 1.3 mg/dL (0.70-1.30) 10/21/22 06:30 DVT Prophylaxis: Reviewed (SCDs ordered, chemical prophylaxis on hold per progress note) Therapeutic Anticoagulation: N/A - Opiate Usage Evaluate Pain Scale/Pains Meds: Reviewed Scheduled Bowel Reg ordered if on Opiates?: No (provider aware) - Relevant Labs Sodium 134 mmol/L (136-145) L 10/21/22 06:30 Potassium 4.2 mmol/L (3.5-5.1) 10/21/22 06:30 Chloride 101 mmol/L (98-107) 10/21/22 06:30 Electrolytes, C-Reactive P, ESR: Reviewed - DM Control DM Control: Glucose 130 mg/dL (74-106) H 10/21/22 06:30 DM Control: Reviewed (no DM noted in medical history) Insulin Dosing, Diabetic Medication: N/A - Cardiac Review BP, HR, EF%: Reviewed - Qtc Review QTc: N/A - IV to PO Switch IV Medications: Reviewed - Home Meds Relevent Home Meds Not ordered & why?: metronidazole, neomycin and miralax (all 3 were for bowel prep), aspirin, bisacodyl (PRN), epinephrine (PRN), levofloxacin (for prior to a procedure), multivitamin, rosuvastatin, sildenafil (PRN) - Current meds Current Medication Order Review: Reviewed - Comments Comments/Follow Ups: Watch VS, H/H, labs and for med changes (possible renal dose adjustments).
[2022-10-21 15:38] VITALS: BP 118/73; PULSE 75; RESP 17; TEMP 36.7; O2SAT 94
[2022-10-21] MEDS: Normal Saline Flush 10 ML SYR IVP (17:50)
[2022-10-21] MEDS: Melatonin 3 MG TAB 6 MG PO (21:28)
[2022-10-21 22:49] VITALS: BP 107/69; PULSE 79; RESP 19; TEMP 36.5; O2SAT 94
[2022-10-22] MEDS: Acetaminophen 500 MG TAB 1000 MG PO ×4 (05:46→23:41)
[2022-10-22 06:52] LABS: HCT 24.2 % (40.0-50.0); HGB 8.3 g/dL (13.5-17.5); MCH 32.5 pg (27.0-33.0); MCHC 34.3 % (32.0-36.0); MCV 95 fL (80-95); MPV 9.5 fL (8.0-11.0); Platelet Count 142 10^3/uL (130-400); RBC 2.55 10^6/uL (4.36-5.78); RDW 12.3 % (11.8-14.1); RDW-SD 42.7 fL; WBC 8.45 10^3/uL (4.4-10.8)
[2022-10-22 07:04] LABS: Anion Gap 6.1 mmol/L (3-11); BUN 28 mg/dL (7-18); CO2 24.9 mmol/L (21.0-32.0); CREATININE 1.3 mg/dL (0.70-1.30); Calcium 8.2 mg/dL (8.5-10.1); Chloride 101 mmol/L (98-107); Glucose 119 mg/dL (74-106); Potassium 3.8 mmol/L (3.5-5.1); Sodium 132 mmol/L (136-145)
[2022-10-22 07:10] VITALS: BP 112/75; PULSE 85; RESP 16; TEMP 35.9; O2SAT 94
--- NOTE | 2022-10-22 08:01 | W.PM.PROGNOT ---
Date of Service Date of service: 10/22/22 Time of Service: 10:30 Assessment and Plan Assessment and plan (1) History of colostomy reversal: Status: Acute Assessment and plan: 72year-old man postop day 2 from laparoscopic colostomy reversal. He is hemodynamically stable. He is having good bowel function although his abdominal exam is slightly distended. Biggest issue is his hemoglobin continues to down?trend. He continues to have some blood mixed in with his stools and his NANCY output has been scant volume all pointing towards an anastomotic bleed being the underlying culprit. As of yesterday we held his DVT prophylaxis and today we will check his coagulation profile. Certainly the safest course of action right now is to not manipulate the fresh anastomosis if possible and so we will try to avoid doing a flex sig now and be patient and hopefully the bleeding stops on its own. #Cont reg diet #mechanical DVT prophylaxis only #check coags and repeat Hgb this afternoon #OOB and ambulate with assist since acutely anemic #transfuse as needed for any symptoms or if we get in to the low 7 range on repeat. Subjective Subjective Interval history since last seen: Overall has no significant complaints except for some left?sided tenderness underneath the ostomy closure. No fevers. He has been passing gas and continues to have bowel movements. He has had 2 this morning with melanotic stool and a few streaks of bright red blood mixed in. He is voiding adequately. Exam Narrative Exam Narrative: General: Nontoxic, comfortable and interactive. Somewhat pale. Neuro: Alert and oriented x3 Psych: Appropriate mood and affect, good insight and understanding into condition Abdomen: Soft, mildly distended, focally tender in the left hemiabdomen around the colostomy closure site. No obvious erythema visible. The incisions are all otherwise intact. I opened up the space in between the nylon sutures and did pack it gently. There was no purulence or foul odor and I did not get any pus out but some clear serous drainage was expressed. The drain has had scant output - Serosanguinous. Objective Last Vital Signs Temp 96.6 F L 10/22/22 07:10 Pulse 85 10/22/22 07:10 Resp 16 10/22/22 07:10 BP 112/75 10/22/22 07:10 Pulse Ox 94 10/22/22 07:10 Laboratory Results - last 24 hr 10/21/22 10/21/22 10/22/22 01:40 12:10 06:32 WBC RBC Hgb 9.4 L Hct MCV MCH MCHC RDW Plt Count MPV Sodium 132 L Potassium 3.8 Chloride 101 Carbon Dioxide 24.9 Anion Gap 6.1 BUN 28 H Creatinine 1.3 Est GFR (CKD-EPI 2020) 59.10 Glucose 119 H Calcium 8.2 L Crossmatch See Detail 10/22/22 06:32 WBC 8.45 RBC 2.55 L Hgb 8.3 L Hct 24.2 L MCV 95 MCH 32.5 MCHC 34.3 RDW 12.3 Plt Count 142 MPV 9.5 Sodium Potassium Chloride Carbon Dioxide Anion Gap BUN Creatinine Est GFR (CKD-EPI 2020) Glucose Calcium Crossmatch Time Spent with Patient Time Spent with Patient: <25 minutes Time was spent: indepentently interpreting results and counseling the patient
--- NOTE | 2022-10-22 08:35 | W.PM.PROGNOT ---
Date of Service Date of service: 10/22/22 Time of Service: 08:35 Assessment and Plan Assessment and plan (1) History of colostomy reversal: Status: Acute Assessment and plan: POD #2 s/p colostomy reversal. Tolerating post op diet NANCY drain with sanginous drainage(+) Bloody/tarry BM this morning. Hgb 8.3 Will continue to trend Encouraged activity OOB, ambulation with nsg and sitting up in the chair for meals. Pulmonary toilet Continue with pain control Will continue to trend H/H. No bleeding overnight is reassuring, however he did drop another gram from yesterday. Subjective Subjective Interval history since last seen: Patient reports that he just had a BM. Denies any rectal bleeding or bloody stools through the night. Denies chest pain, SOB, dizziness or light headedness. Expressed feeling good about his transfer this morning to the [facility]. Describes having abdominal soreness this morning. Exam Const General: cooperative, healthy appearing and comfortable Orientation: alert and oriented x3 Resp Effort & Inspection: normal respiratory effort, no audible wheezes and no cough GI Inspection: normal to inspection Palpation: soft and tender Other: NANCY drain with sanginous drainage Dressings in place. BM in commode noted to be bloody/tarry in nature Objective Last Vital Signs Temp 35.9 C L 10/22/22 07:10 Pulse 85 10/22/22 07:10 Resp 16 10/22/22 07:10 BP 112/75 10/22/22 07:10 Pulse Ox 94 10/22/22 07:10 Laboratory Results - last 24 hr 10/21/22 10/21/22 10/22/22 01:40 12:10 06:32 WBC RBC Hgb 9.4 L Hct MCV MCH MCHC RDW Plt Count MPV Sodium 132 L Potassium 3.8 Chloride 101 Carbon Dioxide 24.9 Anion Gap 6.1 BUN 28 H Creatinine 1.3 Est GFR (CKD-EPI 2020) 59.10 Glucose 119 H Calcium 8.2 L Crossmatch See Detail 10/22/22 06:32 WBC 8.45 RBC 2.55 L Hgb 8.3 L Hct 24.2 L MCV 95 MCH 32.5 MCHC 34.3 RDW 12.3 Plt Count 142 MPV 9.5 Sodium Potassium Chloride Carbon Dioxide Anion Gap BUN Creatinine Est GFR (CKD-EPI 2020) Glucose Calcium Crossmatch Time Spent with Patient Time Spent with Patient: <25 minutes Time was spent: preparing to see the patient(eg.review tests)
[2022-10-22] MEDS: traMADol 50 MG TAB PO (08:43)
[2022-10-22] MEDS: Psyllium PKT 1 EACH PO (09:33)
[2022-10-22] MEDS: Tamsulosin 0.4 MG CAPCR PO (09:33)
--- NOTE | 2022-10-22 09:45 | PDOC.CMPRO ---
- If Service Date Differs Date of service: 10/22/22 Time of Service: 09:45 Care Management Progress Note S/O:Isaiah was lying in bed when CM met with him. He was holding onto his abdomen and informed CM that he is having a lot of pain. He stated that he had just been given morphine and was hoping it would help. He also stated that he has not gotten much rest and would like to take a nap later. Isaiah shared that the post-operative pain from this surgery is much worse than after the original surgery when he had the colostomy. He reported that he has been up twice this morning to the commode and was informed by his nurse that she would like him to sit in the chair for lunch. He is now on a regular diet but admitted that he does not have much of an appetite. Clinically, Isaiah is doing well. He is afebrile and his vital signs are stable. He had a BM this morning that was non-bloody. His H&H continue to be monitored and have dropped a bit more since yesterday, but without symptoms of lightheadedness, hypotension etc. A: Isaiah is a 72 year old man admitted on 10/20/22 for reversal of Phil's procedure P:Anticipate Isaiah will discharge to his brother Sarkis's home in [place], possibly with new home health services, when medically cleared by provider. He will follow up with his surgeon, PCP and plan of care and transport with his brother. CM will support Isaiah and his discharge planning needs.
[2022-10-22] MEDS: Normal Saline Flush 10 ML SYR IVP ×3 (09:58→15:31)
[2022-10-22] MEDS: MORPHine 2 MG/ML SYR IVP ×3 (11:21→20:39)
[2022-10-22 15:45] VITALS: BP 116/66; PULSE 76; RESP 16; TEMP 37.3; O2SAT 96
[2022-10-22 17:18] LABS: Abs Immature Grans 0.02 10^3/uL (0.0-0.06); Absolute Basophil Count 0.03 10^3/uL (0.0-0.2); Absolute Eosinophil Count 0.15 10^3/uL (0.0-0.7); Absolute Lymphocyte Count 1.48 10^3/uL (1.2-3.4); Absolute Monocyte Count 0.98 10^3/uL (0.1-0.8); Absolute Neutrophil Count 6.19 10^3/uL (1.2-6.7); Basophils % 0.3; Eosinophils % 1.7; HCT 24.5 % (40.0-50.0); HGB 8.5 g/dL (13.5-17.5); Immature Grans % 0.2; Lymphocytes % 16.7; MCH 32.9 pg (27.0-33.0); MCHC 34.7 % (32.0-36.0); MCV 95 fL (80-95); MPV 9.2 fL (8.0-11.0); Monocytes % 11.1; Platelet Count 193 10^3/uL (130-400); RBC 2.58 10^6/uL (4.36-5.78); RDW 12.6 % (11.8-14.1); RDW-SD 43.8 fL; WBC 8.85 10^3/uL (4.4-10.8)
[2022-10-22 17:34] LABS: PTT Activated 26.4 sec (21.0-27.5); Prothrombin Time 10.1 sec (9.3-11.0)
[2022-10-22] MEDS: Calcium Carbonate *TUMS* 500 MG CHEW PO (17:53)
[2022-10-22 19:42] VITALS: BP 108/62; PULSE 64; RESP 16; TEMP 37.9; O2SAT 93
[2022-10-22] MEDS: Melatonin 3 MG TAB 6 MG PO (20:39)
[2022-10-22 23:45] VITALS: BP 118/70; PULSE 72; RESP 18; TEMP 37.4; O2SAT 95
[2022-10-23] MEDS: Acetaminophen 500 MG TAB 1000 MG PO ×4 (05:44→23:05)
[2022-10-23] MEDS: MORPHine 2 MG/ML SYR IVP ×5 (05:46→23:05)
[2022-10-23 06:23] LABS: Abs Immature Grans 0.03 10^3/uL (0.0-0.06); Absolute Basophil Count 0.03 10^3/uL (0.0-0.2); Absolute Eosinophil Count 0.23 10^3/uL (0.0-0.7); Absolute Lymphocyte Count 1.03 10^3/uL (1.2-3.4); Absolute Monocyte Count 1.02 10^3/uL (0.1-0.8); Absolute Neutrophil Count 4.86 10^3/uL (1.2-6.7); Basophils % 0.4; Eosinophils % 3.2; HCT 22.2 % (40.0-50.0); HGB 7.8 g/dL (13.5-17.5); Immature Grans % 0.4; Lymphocytes % 14.3; MCH 33.2 pg (27.0-33.0); MCHC 35.1 % (32.0-36.0); MCV 95 fL (80-95); MPV 9.3 fL (8.0-11.0); Monocytes % 14.2; Neutrophils % 67.5; Platelet Count 172 10^3/uL (130-400); RBC 2.35 10^6/uL (4.36-5.78); RDW 12.5 % (11.8-14.1); RDW-SD 42.8 fL
[2022-10-23 06:38] LABS: Anion Gap 6.1 mmol/L (3-11); BUN 13 mg/dL (7-18); CO2 24.9 mmol/L (21.0-32.0); CREATININE 0.9 mg/dL (0.70-1.30); Calcium 8.1 mg/dL (8.5-10.1); Chloride 101 mmol/L (98-107); Estimated GFR 91.88 (mL/min/1.73m2); Glucose 106 mg/dL (74-106); Potassium 3.8 mmol/L (3.5-5.1); Sodium 132 mmol/L (136-145)
[2022-10-23] MEDS: Psyllium PKT 1 EACH PO (07:50)
[2022-10-23] MEDS: Tamsulosin 0.4 MG CAPCR PO (07:50)
--- NOTE | 2022-10-23 09:09 | PDOC.CMPRO ---
- If Service Date Differs Date of service: 10/23/22 Time of Service: 09:09 Care Management Progress Note S/O:Isaiah was lying in bed when CM met with him. He verbalized that he continues to have a lot of abdominal pain primarily associated with spasms. He was seen by who ordered Valium prn for the spasms. Isaiah's H&H has continued to drop; this morning it was 7.8 and 22.2. Per provider's notes, he will likely be transfused later today. Isaiah also has a low grade temp of 37.9 and informed CM that he is having chills. He is also receiving Tylenol every 6 hours which may be masking a higher temperature. he continues to move his bowels and this morning after an initial bloody stool, he had 2 stools which were more formed and non-bloody. A: Isaiah is a 72 year old man admitted on 10/20/22 for reversal of Phil's procedure P:Anticipate Isaiah will discharge to his brother Sarkis's home in [place], possibly with new home health services, when medically cleared by provider. He will follow up with his surgeon, PCP and plan of care and transport with his brother. CM will support Isaiah and his discharge planning needs.
[2022-10-23 09:45] VITALS: BP 102/59; PULSE 79; RESP 18; TEMP 37; O2SAT 98
[2022-10-23] MEDS: Calcium Carbonate *TUMS* 500 MG CHEW PO ×2 (10:39→21:11)
--- NOTE | 2022-10-23 10:47 | NUR.NOTE ---
Nursing Note: Reported blood in stool from yesterday. Today, pt on commode stooled loose and bloody, ~75cc. Morning pressure 102/59 and when getting pt OOB, pt reported some transient lightheadedness (resolved in seconds). Charge nurse notified.
--- NOTE | 2022-10-23 10:49 | NUR.NOTE ---
Nursing Note: Pt ambulating in halls w/ family. Second BM notable for initial blood present but following that, pt stooled normal in appearance; soft but formed.
--- NOTE | 2022-10-23 12:26 | W.PM.PROGNOT ---
Date of Service Date of service: 10/23/22 Time of Service: 12:26 Assessment and Plan Assessment and plan (1) History of colostomy reversal: Status: Acute Assessment and plan: POD #3 s/p colostomy reversal. Tolerating post op diet NANCY drain with sanginous drainage(+) Bloody BM this morning, followed by normal appearing stool. Hgb 7.8 this AM, down from 8.5. Pt c/o dizziness, and BP a little soft this morning. Will transfuse. Encouraged activity OOB, ambulation with nsg and sitting up in the chair for meals. Pulmonary toilet/incentive spirometry pain control will add Valium for spasms Subjective Subjective Interval history since last seen: Pt is feeling slightly better today. He got out of bed for breakfast and has been ambulating in the hallways. He denies any nausea. He did have some dizziness upon first getting out of bed, but that has resolved. He has had some chills. He is voiding well. He had a melanotic loose stool earlier, but subsequently had non-bloody more formed bowel movements later. Exam Const General: cooperative, comfortable and no acute distress Nutritional Appearance: average body habitus Orientation: alert, awake and oriented x3 Resp Effort & Inspection: normal respiratory effort and able to speak in complete sentences GI Inspection: distended (mild) and incision (colostomy site re-packed; min serous drainage, no pus appreciated) Palpation: soft, not firm, not rigid and tender (mild tenderness throughout ) other (drain sanguinous in RLQ) Neuro General: patient alert, patient awake and patient oriented x3 Cognition: normal cognition Speech: speech normal Objective Last Vital Signs Temp 98.6 F 10/23/22 09:45 Pulse 79 10/23/22 09:45 Resp 18 10/23/22 09:45 BP 102/59 L 10/23/22 09:45 Pulse Ox 98 10/23/22 09:45 Laboratory Results - last 24 hr 10/22/22 10/22/22 10/23/22 17:05 17:05 05:56 WBC 8.85 RBC 2.58 L Hgb 8.5 L Hct 24.5 L MCV 95 MCH 32.9 MCHC 34.7 RDW 12.6 Plt Count 193 MPV 9.2 Immature Gran % 0.2 Neutrophils % 70.0 Lymphocytes % 16.7 Monocytes % 11.1 Eosinophils % 1.7 Basophils % 0.3 Nucleated RBC % 0.0 Absolute Neutrophils 6.19 Absolute Lymphocytes 1.48 Absolute Monocytes 0.98 H Absolute Eosinophils 0.15 Absolute Basophils 0.03 PT 10.1 INR 1.0 APTT 26.4 Sodium 132 L Potassium 3.8 Chloride 101 Carbon Dioxide 24.9 Anion Gap 6.1 BUN 13 Creatinine 0.9 Est GFR (CKD-EPI 2020) 91.88 Glucose 106 Calcium 8.1 L 10/23/22 05:56 WBC 7.20 RBC 2.35 L Hgb 7.8 L Hct 22.2 L MCV 95 MCH 33.2 H MCHC 35.1 RDW 12.5 Plt Count 172 MPV 9.3 Immature Gran % 0.4 Neutrophils % 67.5 Lymphocytes % 14.3 Monocytes % 14.2 Eosinophils % 3.2 Basophils % 0.4 Nucleated RBC % 0.0 Absolute Neutrophils 4.86 Absolute Lymphocytes 1.03 L Absolute Monocytes 1.02 H Absolute Eosinophils 0.23 Absolute Basophils 0.03 PT INR APTT Sodium Potassium Chloride Carbon Dioxide Anion Gap BUN Creatinine Est GFR (CKD-EPI 2020) Glucose Calcium Time Spent with Patient Time Spent with Patient: 25-34 minutes Time was spent: preparing to see the patient(eg.review tests), obtaining and/or reviewing separately otained hiistory, ordering medications,tests, procedures, referring, communicating with other health healthcare market consultant, indepentently interpreting results and counseling the patient
[2022-10-23 12:29] VITALS: TEMP 37.9
--- NOTE | 2022-10-23 12:44 | NUR.NOTE ---
Nursing Note: Discussed pain management, downward trending H&H, recent BP, lightheadedness when changing positions, upward trending temp (37 -> 37 with Care Management and Dr. Moser. Providers aware of findings, from this am to now
[2022-10-23] MEDS: diazePAM 2 MG TAB PO ×2 (14:14→22:56)
[2022-10-23 15:35] VITALS: BP 109/62; PULSE 86; RESP 22; TEMP 37.7; O2SAT 91
[2022-10-23 21:05] VITALS: BP 128/77; PULSE 93; RESP 18; TEMP 37.1; O2SAT 95
[2022-10-23] MEDS: Melatonin 3 MG TAB 6 MG PO (21:11)
[2022-10-23] MEDS: Normal Saline Flush 10 ML SYR IVP (21:16)
[2022-10-24] VITALS (9 sets, daily range): BP systolic 117–155; BP diastolic 64–88; PULSE 60–83; RESP 12–18; TEMP 36–36.9; O2SAT 95–99
[2022-10-24] MEDS: Acetaminophen 500 MG TAB 1000 MG PO ×3 (05:15→18:06)
[2022-10-24] MEDS: MORPHine 2 MG/ML SYR IVP ×4 (05:16→20:13)
[2022-10-24] MEDS: Normal Saline Flush 10 ML SYR IVP ×3 (05:16→11:36)
[2022-10-24 06:32] LABS: HCT 21.6 % (40.0-50.0); HGB 7.5 g/dL (13.5-17.5); MCH 32.9 pg (27.0-33.0); MCHC 34.7 % (32.0-36.0); MCV 95 fL (80-95); MPV 8.9 fL (8.0-11.0); Platelet Count 225 10^3/uL (130-400); RBC 2.28 10^6/uL (4.36-5.78); RDW 12.5 % (11.8-14.1); RDW-SD 43.6 fL; WBC 5.83 10^3/uL (4.4-10.8)
[2022-10-24 06:57] LABS: Anion Gap 8.2 mmol/L (3-11); BUN 12 mg/dL (7-18); CO2 25.8 mmol/L (21.0-32.0); CREATININE 0.9 mg/dL (0.70-1.30); Calcium 8.6 mg/dL (8.5-10.1); Chloride 99 mmol/L (98-107); Estimated GFR 91.88 (mL/min/1.73m2); Glucose 114 mg/dL (74-106); Potassium 3.6 mmol/L (3.5-5.1); Sodium 133 mmol/L (136-145)
--- NOTE | 2022-10-24 07:44 | NUR.NOTE ---
Nursing Note: Dr. Sauer discussed blood transfusion with pt on 10/23/22 at 1500. Discussed all potential side effects. It was decided to hold off on blood transfusions for the time being. Will assess h&h on 10/24.
[2022-10-24] MEDS: diazePAM 2 MG TAB PO ×2 (08:19→21:14)
[2022-10-24] MEDS: Psyllium PKT 1 EACH PO (08:20)
[2022-10-24] MEDS: Tamsulosin 0.4 MG CAPCR PO (08:20)
--- NOTE | 2022-10-24 08:49 | PDOC.CMPRO ---
- If Service Date Differs Date of service: 10/24/22 Time of Service: 08:49 Care Management Progress Note S/O:Isaiah was sitting up in bed when CM met with him. He was in good spirits and stated that he is starting to feel better and that his pain is much better controlled today. Isaiah has been out of bed ambulating in the de anda and is no longer having bloody stools. He received a unit of blood today because he sustained a further drop in his H&H. He was reluctant to have the transfusion but as he has become symptomatic with lightheadedness, he agreed. Per provider, it is possible that he may be ready for discharge in the next couple of days. A: Isaiah is a 72 year old man admitted on 10/20/22 for reversal of Phil's procedure P:Anticipate Isaiah will discharge to his brother Sarkis's home in [place], possibly with new home health services, when medically cleared by provider. He will follow up with his surgeon, PCP and plan of care and transport with his brother. CM will support Isaiah and his discharge planning needs.
[2022-10-24] MEDS: diphenhydrAMINE 25 MG CAP 50 MG PO (11:36)
--- NOTE | 2022-10-24 12:37 | PGE_ITS ---
Date of Service Date of service: 10/24/22 Time of Service: 11:15 Assessment and Plan Assessment and plan (1) History of colostomy reversal: Status: Acute Assessment and plan: POD #4 s/p colostomy reversal. Tolerating post op diet NANCY drain with serosanginous drainage(+) non-bloody, light brown stool this morning Hgb 7.5 this AM, down from 7.8 Pt c/o transient dizziness. Pt refused yesterday, will transfuse 1U PRBC. Encouraged activity OOB, ambulation with nsg and sitting up in the chair for meals. Pulmonary toilet/incentive spirometry pain control, oral pain meds anticipate discharge in next couple of days Subjective Subjective Interval history since last seen: Pt feeling a little worn down today. He has been ambulating in the hallway, and admits to very transient feeling faint. He has had multiple small non-bloody bowel movements. His last bloody stool was yesterday morning. Otherwise, he is tolerating a diet, and voiding without difficulty. Pt seen with Dr. Sauer Exam Const General: cooperative, comfortable and no acute distress Nutritional Appearance: average body habitus Orientation: alert, awake and oriented x3 Resp Effort & Inspection: normal respiratory effort and able to speak in complete sentences GI Inspection: distended (mild) and incision (colostomy site packed by Dr. Ross, no reported purulence) Palpation: soft, not firm, not rigid and tender (mild tenderness throughout ) other (drain serosanguinous in RLQ) Neuro General: patient alert, patient awake and patient oriented x3 Cognition: normal cognition Speech: speech normal Psych Thought Process: normal Thought Content: normal Insight: insight good Judgment: judgment good Objective Last Vital Signs Temp 98.1 F 10/24/22 12:27 Pulse 73 10/24/22 12:27 Resp 14 10/24/22 12:27 BP 155/88 H 10/24/22 12:27 Pulse Ox 99 10/24/22 12:27 Laboratory Results - last 24 hr 10/21/22 10/23/22 10/24/22 01:40 17:00 06:14 WBC Cancelled RBC Cancelled Hgb Cancelled Hct Cancelled MCV Cancelled MCH Cancelled MCHC Cancelled RDW Cancelled Plt Count Cancelled MPV Cancelled Sodium 133 L Potassium 3.6 Chloride 99 Carbon Dioxide 25.8 Anion Gap 8.2 BUN 12 Creatinine 0.9 Est GFR (CKD-EPI 2020) 91.88 Glucose 114 H Calcium 8.6 Patient ABO/Rh AB Positive Antibody Screen NEGATIVE Crossmatch See Detail 10/24/22 06:14 WBC 5.83 RBC 2.28 L Hgb 7.5 L Hct 21.6 L MCV 95 MCH 32.9 MCHC 34.7 RDW 12.5 Plt Count 225 MPV 8.9 Sodium Potassium Chloride Carbon Dioxide Anion Gap BUN Creatinine Est GFR (CKD-EPI 2020) Glucose Calcium Patient ABO/Rh Antibody Screen Crossmatch Time Spent with Patient Time Spent with Patient: 25-34 minutes Time was spent: preparing to see the patient(eg.review tests), obtaining and/or reviewing separately otained hiistory, ordering medications,tests, procedures, referring, communicating with other health critical care technician, indepentently interpreting results and counseling the patient
[2022-10-24] MEDS: oxyCODONE 5 MG TAB PO (15:01)
[2022-10-24] MEDS: Melatonin 3 MG TAB 6 MG PO (21:13)
[2022-10-25] MEDS: Acetaminophen 500 MG TAB 1000 MG PO ×2 (01:48→12:41)
[2022-10-25] MEDS: MORPHine 2 MG/ML SYR IVP ×2 (01:49→08:29)
[2022-10-25] MEDS: oxyCODONE 5 MG TAB PO ×2 (05:02→12:41)
[2022-10-25 05:08] VITALS: BP 125/74; PULSE 63; RESP 18; TEMP 36.4; O2SAT 95
[2022-10-25 06:58] LABS: HCT 25.1 % (40.0-50.0); HGB 8.7 g/dL (13.5-17.5); MCH 32.6 pg (27.0-33.0); MCHC 34.7 % (32.0-36.0); MCV 94 fL (80-95); MPV 8.9 fL (8.0-11.0); Platelet Count 268 10^3/uL (130-400); RBC 2.67 10^6/uL (4.36-5.78); RDW 13.2 % (11.8-14.1); RDW-SD 45.1 fL; WBC 5.14 10^3/uL (4.4-10.8)
[2022-10-25 07:07] LABS: Anion Gap 7.4 mmol/L (3-11); BUN 11 mg/dL (7-18); CO2 26.6 mmol/L (21.0-32.0); CREATININE 0.9 mg/dL (0.70-1.30); Calcium 8.4 mg/dL (8.5-10.1); Chloride 101 mmol/L (98-107); Estimated GFR 91.88 (mL/min/1.73m2); Glucose 107 mg/dL (74-106); Potassium 3.9 mmol/L (3.5-5.1); Sodium 135 mmol/L (136-145)
[2022-10-25 07:13] VITALS: BP 125/78; PULSE 69; RESP 16; TEMP 36.3; O2SAT 95
[2022-10-25] MEDS: Tamsulosin 0.4 MG CAPCR PO (08:25)
[2022-10-25] MEDS: Psyllium PKT 1 EACH PO (08:25)
[2022-10-25] MEDS: Normal Saline Flush 10 ML SYR IVP (08:25)
[2022-10-25] MEDS: Methocarbamol 750 MG TAB PO ×2 (09:41→12:41)
--- NOTE | 2022-10-25 10:01 | W.PM.PROGNOT ---
Date of Service Date of service: 10/25/22 Time of Service: 10:01 Assessment and Plan Assessment and plan (1) History of colostomy reversal: Status: Acute Assessment and plan: POD #5 s/p lap colostomy reversal. Still with some spasmodic pain. Tolerating a diet, and feels more peppy after transfusion. Tolerating post op diet NANCY drain with serosanginous drainage(+) non-bloody, light brown stool this morning Hgb 8.7 from 7.5 after transfusion Planning to take shower. Pulmonary toilet/incentive spirometry pain control, oral pain meds anticipate discharge in next 24 hours Subjective Subjective Interval history since last seen: Pt is feeling a little more robust today after PRBC transfusion yesterday, less run down. He is ambulating with greater ease. Tolerating a diet. Still with spasmodic pains. Passing non-bloody stool and flatus. Exam Const General: cooperative, comfortable and no acute distress Nutritional Appearance: average body habitus Orientation: alert, awake and oriented x3 Resp Effort & Inspection: normal respiratory effort and able to speak in complete sentences GI Inspection: distended (mild) and incision (colostomy site packing with scant serous fluid) Palpation: soft, not firm, not rigid and tender (mild tenderness throughout ) other (drain serosanguinous in RLQ) Percussion: tympanic to percussion Auscultation: normal bowel sounds Neuro General: patient alert, patient awake and patient oriented x3 Cognition: normal cognition Speech: speech normal Psych Thought Process: normal Thought Content: normal Insight: insight good Judgment: judgment good Objective Last Vital Signs Temp 97.3 F L 10/25/22 07:13 Pulse 69 10/25/22 07:13 Resp 16 10/25/22 07:13 BP 125/78 10/25/22 07:13 Pulse Ox 95 10/25/22 07:13 Laboratory Results - last 24 hr 10/21/22 10/25/22 10/25/22 01:40 06:30 06:30 WBC 5.14 RBC 2.67 L Hgb 8.7 L Hct 25.1 L MCV 94 MCH 32.6 MCHC 34.7 RDW 13.2 Plt Count 268 MPV 8.9 Sodium 135 L Potassium 3.9 Chloride 101 Carbon Dioxide 26.6 Anion Gap 7.4 BUN 11 Creatinine 0.9 Est GFR (CKD-EPI 2020) 91.88 Glucose 107 H Calcium 8.4 L Patient ABO/Rh AB Positive Antibody Screen NEGATIVE Crossmatch See Detail Time Spent with Patient Time Spent with Patient: <25 minutes Time was spent: preparing to see the patient(eg.review tests), obtaining and/or reviewing separately otained hiistory, ordering medications,tests, procedures, indepentently interpreting results and counseling the patient
--- NOTE | 2022-10-25 11:46 | W.PM.DS.N ---
Date of service: 10/25/22 Time of Service: 11:47 DS: Diagnosis Discharge Diagnosis (1) History of colostomy reversal: Status: Acute Asessment and Plan: This is a 72-year-old male who is POD#5 s/p a lap Doran's reversal, complicated by a likely anastomotic bleed. Now stable, without bloody bowel movements. Tolerating a regular diet, and ready for discharge home. Discharge Plan Disposition Patient Disposition: Home Condition: Stable Discharge Details Reason For Visit: Phil's Reversal Admit Date/Time: 10/20/22 06:09 Admit Provider: Sarkis Sauer Attending Provider: Sarkis Sauer Primary Care Provider: Blaire Delgado Hospital Course Hospital Course: This is a 72-year-old male who underwent a laparoscopic Doran's reversal with Dr. Sauer and Dr. Ross on 10/20/2022. His postoperative course was complicated by likely anastomotic bleeding with a passage of bloody stools/blood per rectum. His Hgb decreased from 11.0 on 10/21 to 7.5 on 10/24. On 10/24/2022, the patient accepted a 1U PRBC transfusion, and his Hgb responded appropriately to 8.7. Today, he is feeling well, is tolerating a diet, and has not had any bloody stools for >48 hours. He is still experiencing occasional some muscle spasms. He states that he feels safe and ready to go home. Home Meds and New Rx's Prescriptions: New chlorzoxazone [Lorzone] 750 mg tablet 750 mg PO TID PRN (Reason: muscle spasm) Qty: 12 0RF oxycodone 5 mg Tablet 5 mg PO Q4H PRN PRN (Reason: severe pain (scale score 7-10)) Qty: 9 0RF Continued sildenafil (pulm.hypertension) 20 mg tablet 60 mg PO ONCE PRN (Reason: sexual activity) Qty: 30 0RF rosuvastatin 5 mg tablet 5 mg PO DAILY Qty: 90 3RF epinephrine [EpiPen 2-Hang] 0.3 mg/0.3 mL auto-injector 0.3 mg IM ONCE Qty: 2 2RF Rx Instructions: as a single dose; may repeat once neomycin 500 mg tablet 500 mg PO DIRECTED Label Comments: pt. reports taking 2 not 4 because it was causing weakness and headache Rx Instructions: dispense #8 tabs per bowel prep instructions ondansetron HCl 8 mg tablet 24 mg PO DIRECTED Rx Instructions: as directed for bowel surgery tamsulosin 0.4 mg capsule 0.4 mg PO QHS Qty: 90 3RF Held aspirin 81 mg tablet,delayed release (DR/EC) 81 mg PO DAILY Hold Instructions: Resume on 11/06/22. Until post-operative follow-up visit Discontinued levofloxacin 500 mg tablet 500 mg PO DAILY Qty: 3 0RF Rx Instructions: Take 1 tab the day before the procedure, one the day of the procedure, and 1 tab the day after the procedure. polyethylene glycol 3350 17 gram/dose powder 238 g PO ONCE Qty: 238 0RF Rx Instructions: take per colonoscopy instructions bisacodyl [Dulcolax (bisacodyl)] 5 mg tablet,delayed release (DR/EC) 5 mg PO ONCE Qty: 8 0RF Rx Instructions: take per colonoscopy instructions metronidazole 500 mg tablet 500 mg PO .COMPLEX Qty: 8 0RF Rx Instructions: 500 mg orally per bowel prep instructions; Ensure Clear Liquid See Rx Instructions PO .COMPLEX Qty: 888 0RF Rx Instructions: orally dispense (3)-16 oz containers; as instructed for colon surgery No Action multivitamin [Daily Multi-Vitamin] Tablet 1 tab PO DAILY Qty: 1 Discharge Instructions Instructions: Blood Transfusion (DC), Laparoscopic Colostomy Reversal (DC) Additional Instructions: Incision: Can be left uncovered. Keep clean. It is okay to shower. Medications: Resume your regular medications, except hold aspirin until seen at your follow-up Diet: Regular, low fiber Pain: Mild discomfort will persist but pain should not be worsening. Activity: Light-duty as tolerated with absolutely no strenuous or heavy lifting/pulling/ pushing for the next 6 weeks or until cleared by your surgeon. No weight lifting or sports such as skiing. This is to avoid getting a hernia at your incision. Followup: Call surgery office and schedule a followup appointment to be seen in next 7-10 days. Referrals: Sarkis Sauer MD [ [facility]] - (Post-op) Activity:: limit lifting <10lbs Equipment/Supplies:: No Equipment Needed Diet:: low fiber Discharge Orders Discharge Orders: Discharge Order (Routine); Ordered 10/25/22 Ordered By: Ian Moser DS: Summary Time Spent with Patient providing and/or coordinating discharge services: Greater than 30 minutes Status at Discharge Functional status at discharge: independent ambulation Overall status at discharge: patient is progressing back to baseline Mental Status: mental status grossly normal Speech and Movement: speech and movement normal Mood: congruent mood Affect: normal affect Exam Const General: cooperative, comfortable and no acute distress Nutritional Appearance: average body habitus Orientation: alert, awake and oriented x3 Resp Effort & Inspection: normal respiratory effort and able to speak in complete sentences GI Inspection: distended (mild) and incision (colostomy site packing with scant serous fluid) Palpation: soft, not firm, not rigid and tender (mild tenderness throughout ) other (drain serosanguinous in RLQ) Percussion: tympanic to percussion Auscultation: normal bowel sounds Neuro General: patient alert, patient awake and patient oriented x3 Cognition: normal cognition Speech: speech normal Psych Mental Status: mental status grossly normal Speech and Movement: speech and movement normal Mood: congruent mood Affect: normal affect Thought Process: normal Thought Content: normal Insight: insight good Judgment: judgment good DS: Data Vitals/I&O Vitals and I&O: Vital Signs Temperature 97.3 F L 10/25/22 07:13 Temperature Source Tympanic 10/25/22 07:13 Pulse 69 10/25/22 07:13 Pulse Rhythm Regular 10/25/22 08:30 Respiratory Rate 16 10/25/22 07:13 Respiratory Effort 10/25/22 08:30 Respiratory Depth Normal 10/25/22 08:30 Respiratory Pattern Normal 10/25/22 08:30 Blood Pressure 125/78 10/25/22 07:13 Pulse Oximetry 95 10/25/22 07:13 Respiratory End-tidal CO2 24 10/20/22 12:05 Oxygen Delivery Method Room Air 10/25/22 07:13 Oxygen Flow Rate 0 10/25/22 07:13 Pain Level 8 10/25/22 08:29 Comment 10/22/22 19:42 Intake & Output 10/24/22 10/24/22 10/25/22 11:59 23:59 11:59 Intake Total 20 / 565 545 / 565 0 / 0 Output Total 950 / 2185 1235 / 2185 520 / 520 Balance -930 / -1620 -690 / -1620 -520 / -520 Intake: IV 20 / 20 Oral 220 / 220 Blood Product 325 / 325 Rbc Leuko Reduced Unit 325 / 325 [id number] Injectate 0 / 0 0 / 0 Right Lower Abdomen 0 / 0 0 / 0 Output: Drainage 60 / 120 60 / 120 70 / 70 Right Lower Abdomen 60 / 120 60 / 120 70 / 70 Urine 890 / 2065 1175 / 2065 450 / 450 Other: Urine Color Yellow Yellow Pale Urine Appearance Clear Clear Clear Urine Odor None Normal Normal Stool Size Small Small Small Stool Characteristics Soft Soft Mucoid Brown Brown Voiding Methods Urinal Data Completed and Pending Labs on day of discharge: Labs from last 24 hours 10/25/22 10/25/22 10/21/22 06:30 06:30 01:40 WBC 5.14 RBC 2.67 L Hgb 8.7 L Hct 25.1 L MCV 94 MCH 32.6 MCHC 34.7 RDW 13.2 Plt Count 268 MPV 8.9 Sodium 135 L Potassium 3.9 Chloride 101 Carbon Dioxide 26.6 Anion Gap 7.4 BUN 11 Creatinine 0.9 Est GFR (CKD-EPI 2020) 91.88 Glucose 107 H Calcium 8.4 L Patient ABO/Rh AB Positive Antibody Screen NEGATIVE Crossmatch See Detail PFSH All Active Problems (Updated 10/20/22 @ 06:55 by Rosa Maria Borrego) History of colostomy reversal (Acute) Emphysema of lung (Chronic) Raynauds disease (Chronic) Employment problem (Acute) Tubular adenoma of colon (Acute 07/19/09) on colonoscopy in 2008 and 2021 Elevated BP without diagnosis of hypertension (Chronic) follows at home - 126/73. Elevated PSA, less than 10 ng/ml (Acute) Cardiac pacemaker in situ (Acute) [employer] [id number] Indication: Sick sinus syndrome Last Interrogation: 11/19/21 Nodular prostate with urinary obstruction (Acute) Hearing impairment (Acute) Bilateral sensorineural hearing loss (Acute) Diverticulitis of colon with perforation (Acute) Medical History (Updated 10/20/22 @ 06:55 by Rosa Maria Borrego) AV block, 3rd degree Hx of diverticulitis of colon Pneumothorax, left Rib fracture Surgical History (Updated 10/21/22 @ 07:28 by Sarkis Sauer MD) History of colonoscopy with polypectomy (~02/21/22) Status post cardiac pacemaker procedure (~2017) managed by [facility] Status post lumbar spinal fusion (~2010) 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 Father No problems noted. Sister No problems noted. Sister No problems noted. Brother No problems noted. Daughter No problems noted. Daughter No problems noted. Daughter No problems noted. Daughter No problems noted. Social History Smoking/Tobacco Use Status: Former Tobacco Use Quit Date: 09/28/10 Smoking risk assessment performed?: Yes Alcohol Intake: current Alcohol Intake frequency: 3 or more drinks per day Alcohol type: beer, wine and hard liquor Drug use: Occasionally Substance use type: marijuana Details: alcohol: t-6, few drinks. 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 What is your relationship status?: Panel score (0-1 are the most socially isolated patients): 0 Do you feel safe at home: Yes (Lives alone) Do you feel safe in your relationship?: Yes Time Spent with Patient Time Spent with Patient: <45 minutes Time was spent: preparing to see the patient(eg.review tests), obtaining and/or reviewing separately otained hiistory, referring, communicating with other health family member caretaker, indepentently interpreting results and counseling the patient
== END 2022-10-25 13:17 | disposition home or self-care (01) | DRG 330 ==
LOC: PDS 06:11 → MS 12:28
PROVIDERS: Student in an Organized Health Care Education/Training Program; Surgery; Admitting Provider Surgery; PCP Family Medicine; Visit Provider Surgery
PROC: 0DBE4ZZ Excision of Large Intestine, Percutaneous Endoscopic Approach (ICD-10-PCS; CPT 44227; principal; 2022-10-20 07:30)
DX: Z43.3 Encounter for attention to colostomy (principal); I44.2 Atrioventricular block, complete; K91.840 Postprocedural hemorrhage of a digestive system organ or structure following a digestive system procedure; N13.8 Other obstructive and reflux uropathy; Y83.2 Surgical operation with anastomosis, bypass or graft as the cause of abnormal reaction of the patient, or of later complication, without mention of misadventure at the time of the procedure; J43.9 Emphysema, unspecified; I73.00 Raynaud's syndrome without gangrene; Z95.0 Presence of cardiac pacemaker; N40.3 Nodular prostate with lower urinary tract symptoms; H90.3 Sensorineural hearing loss, bilateral
CPT/HCPCS: 44227; 36415; 80048; 85027; 86850; 86900; 86901; 86920; 87635; J1650; 85018; 85025; 85610; 85730; 88304; 88307; J1100; J1170; J1644; J1885; J2270; J2405; J2704; P9016

== ENCOUNTER → 2022-11-05 08:04 | Outpatient (BNVA) | payer MEDICARE, SELFPAY | PROVIDERS: PCP Family Medicine; Referring Provider Family Medicine; Visit Provider Surgery | DX: Z48.815 Encounter for surgical aftercare following surgery on the digestive system (principal) ==

== ENCOUNTER 2023-01-09 15:01 | Outpatient (REF) | payer MEDICARE, SELFPAY ==
[2023-01-09 13:23] LABS: Estimated GFR 80.97 (mL/min/1.73m2)
== END 2023-01-09 15:02 | disposition home or self-care (01) ==
LOC: LBN 15:01
PROVIDERS: PCP Family Medicine; Visit Provider Urology
DX: R97.20 Elevated prostate specific antigen [PSA] (principal); Z01.812 Encounter for preprocedural laboratory examination
CPT/HCPCS: 82565

== ENCOUNTER 2023-01-16 00:26 | Outpatient (CLI) | payer MEDICARE, SELFPAY ==
--- NOTE | 2023-01-16 09:15 | DI.RAD_ITS ---
Exam(s) XR CHEST 2V PA LATERAL EXAM: XR CHEST 2V PA LATERAL CLINICAL HISTORY: needed prior to MRI,elevated psa,emphysema of lung, j43.9. TECHNIQUE: 2D digital imaging was performed. COMPARISON: CR XR PORTABLE CHEST AP from 05/19/2019 FINDINGS: 2 views: There has been interval placement of a bipolar left subclavian pacemaker with lead tips in are in RV. Heart size is normal. The mediastinum is not widened. Lungs are clear. No infiltrates nor pleural effusions. No pulmonary edema. IMPRESSION: No acute pulmonary findings. Bipolar pacemaker. No pulmonary edema. DATA REPOSITORY: RADIATION DOSE DELIVERED:
== END 2023-01-16 00:46 ==
LOC: DI 00:26
PROVIDERS: PCP Family Medicine; Visit Provider Urology
DX: J43.9 Emphysema, unspecified (principal); R97.20 Elevated prostate specific antigen [PSA]
CPT/HCPCS: 71046

== ENCOUNTER → 2023-05-15 14:36 | Outpatient (BNVA) | payer MEDICARE, SELFPAY | PROVIDERS: PCP Family Medicine; Referring Provider Family Medicine; Visit Provider Urology | DX: N40.3 Nodular prostate with lower urinary tract symptoms (principal); R97.20 Elevated prostate specific antigen [PSA] | CPT/HCPCS: 99214 ==

== ENCOUNTER 2023-05-26 10:18 | Outpatient (CLI) | payer MEDICARE, SELFPAY | END 2023-05-26 10:19 | disposition home or self-care (01) | LOC: LBO 10:18 | PROVIDERS: PCP Family Medicine; Visit Provider Urology | DX: R97.20 Elevated prostate specific antigen [PSA] (principal) | CPT/HCPCS: 36415; 84153 ==

== ENCOUNTER 2023-08-31 04:11 | Outpatient (CLI) | payer MEDICARE, SELFPAY ==
[2023-08-31 18:39] LABS: PSA, Diagnostic 11.2 ng/mL (<=6.5)
== END 2023-08-31 04:12 | disposition home or self-care (01) ==
LOC: LOS 04:11
PROVIDERS: PCP Family Medicine; Visit Provider Urology
DX: R97.20 Elevated prostate specific antigen [PSA] (principal)
CPT/HCPCS: 36415; 84153

== ENCOUNTER → 2023-09-04 07:52 | Outpatient (BNVA) | payer MEDICARE, SELFPAY | PROVIDERS: PCP Family Medicine; Referring Provider Family Medicine; Visit Provider Urology | DX: R97.20 Elevated prostate specific antigen [PSA] (principal) | CPT/HCPCS: 99213 ==

== ENCOUNTER → 2023-11-03 12:43 | Outpatient (BNVA) | payer MEDICARE, SELFPAY | PROVIDERS: PCP Family Medicine; Referring Provider Family Medicine; Visit Provider Urology | DX: N42.89 Other specified disorders of prostate (principal); R97.20 Elevated prostate specific antigen [PSA] | CPT/HCPCS: 55700; 76872 ==

== ENCOUNTER 2023-11-03 15:05 | Outpatient (REF) | payer MEDICARE, SELFPAY ==
--- NOTE | 2023-11-03 13:30 | PROST_PTH ---
PATIENT: Isaiah Irizarry LOC: [facility] U#:[id number] AGE/SX: 73/M ROOM: RE11/03/[address]: Laci Arellano MD : 1950 BED: DIS: 11/03/2023 SPEC #: [id number] RECD: 11/03/23 17:14 STATUS: [facility] #: [id number] SILVINA: 11/03/23 13:[address]: Laci Arellano DEPT: Surgical Specimen RECD BY: Mary Padilla ENTERED: 11/03/23 17:16 SP TYPE: PROST OTHR DR: Blaire Delgado Tissues: 1 - PROSTATE NEEDLE BIOPSY 2 - PROSTATE NEEDLE BIOPSY 3 - PROSTATE NEEDLE BIOPSY 4 - PROSTATE NEEDLE BIOPSY 5 - PROSTATE NEEDLE BIOPSY 6 - PROSTATE NEEDLE BIOPSY 7 - PROSTATE NEEDLE BIOPSY 8 - PROSTATE NEEDLE BIOPSY 9 - PROSTATE NEEDLE BIOPSY 10 - PROSTATE NEEDLE BIOPSY 11 - PROSTATE NEEDLE BIOPSY 12 - PROSTATE NEEDLE BIOPSY Procedures: GROSS AND MICRO LEVEL 4 Comments: [id number]
== END 2023-11-03 15:06 | disposition home or self-care (01) ==
LOC: LBN 15:05
PROVIDERS: PCP Family Medicine; Visit Provider Urology
DX: C61 Malignant neoplasm of prostate (principal)
CPT/HCPCS: 88305

== ENCOUNTER → 2023-11-17 10:49 | Outpatient (BNVA) | payer MEDICARE, SELFPAY | PROVIDERS: PCP Family Medicine; Referring Provider Family Medicine; Visit Provider Urology | DX: C61 Malignant neoplasm of prostate (principal) | CPT/HCPCS: 99215 ==

== ENCOUNTER → 2023-12-01 01:52 | Outpatient (CLI) | payer MEDICARE, SELFPAY ==
--- NOTE | 2023-12-01 06:30 | DI.CT_ITS ---
Exam(s) CT CHEST/ABD/PEL W EXAM: CT CHEST/ABD/PEL W CLINICAL HISTORY: prostate ca, c61,? mets TECHNIQUE: Imaging Protocol: Axial computed tomography images with coronal and sagittal reformatted images were created and reviewed CONTRAST MATERIAL: Intravenous: Omnipaque 350 contrast volume:100 mL Oral: Yes COMPARISON: CT CT CHEST PE CTA from 07/11/[address] ABDOMEN PELVIS W from 08/13/[address] ABDOMEN PELVIS W from 08/18/2022 FINDINGS: CHEST: Tracheobronchial tree: Patent where visualized. Pulmonary parenchyma: Mild centrilobular emphysematous changes are present. There is predominantly p eripheral interstitial thickening seen in the lung bases most suggestive of chronic pulmonary fibrosi s. No focal consolidating infiltrates are seen. No pulmonary nodules are present. Visualized thyroid gland: Unremarkable. Mediastinum and Janel: No dominant adenopathy or fluid collection. The esophagus is unremarkable. Pleura: No effusion or pneumothorax. Heart: The heart is not dilated. Moderate coronary artery calcification is present. No pericardial e ffusion. Cardiac device is in place. Pulmonary arteries: No pulmonary emboli are identified. Aorta: The ascending thoracic aorta measures 4.3 x 4.2 cm. Mild atherosclerotic calcification is pre sent. There is no evidence of dissection. Lymph nodes: Within normal limits. Tubes, Catheters, and Lines: There is a cardiac device in place. Soft tissues: Unremarkable. Bones:Within normal limits for the patient's age. There is an old healed left rib fracture. ABDOMEN: Liver: Normal density. No measurable mass. Portal, Superior Mesenteric, and Splenic Veins: Unremarkable. Gallbladder and Biliary Tract: No radiodense calculus or dilation. Pancreas: Normal density, no abnormal calcifications or inflammatory process. Spleen: Normal. Adrenals: No masses seen. Kidneys: Normal size, contour and axis. No radiodense stones or obstructive uropathy. There are few t iny hypodensities in the kidneys. They are too small for further characterization but likely reflect small cysts. No follow-up is recommended. Abdominal Aorta: Abdominal portion non-dilated. Atherosclerotic calcification is present. Bowel: There is diverticulosis of the colon but no evidence of acute diverticulitis. There is no soraya dence of bowel obstruction or bowel wall thickening. The stomach is incompletely distended limiting evaluation. No evidence of appendicitis. Peritoneal Cavity: No ascites, collection or mesenteric inflammatory response. No free air. Lymph Nodes: Within normal limits. Bones: Within normal limits for the patient's age. Posterior spinal surgery is seen in the lumbosacr al spine. No destructive lesions are seen in the bones. Soft Tissues: There is a small fat containing umbilical hernia. PELVIS: Bladder: There is diffuse thickening of the wall of the urinary bladder. Reproductive Organs: The prostate gland is enlarged and heterogeneous. Lymph Nodes: Within normal limits. Bones: Within normal limits. IMPRESSION: 1. Mild centrilobular pulmonary emphysema and pulmonary fibrosis. 2. Ascending thoracic aorta measuring 4.3 x 4.2 cm. 3. No evidence of metastatic disease. 4. Enlarged and heterogeneous prostate gland. 5. Diffuse thickening of the wall of the urinary bladder. This may be due to chronic bladder outlet obstruction. Neoplasm or cystitis can not be excluded. Please correlate clinically. RADIATION DOSE DELIVERED: Total DLP DATA REPOSITORY: All CT scans at this facility are submitted to the National Radiology Data Registry (NRDR) Dose Index Registry (DIR) with the [employer] (ACR). RADIATION OPTIMIZATION: All CT scans at this facility use at least one of these dose optimization te chniques: automated exposure control; mA and/or kV adjustment per patient size (includes targeted exa ms where dose is matched to clinical indication); or iterative reconstruction.
--- NOTE | 2023-12-01 06:30 | DI.NM_ITS ---
Exam(s) NM BONE SCAN WHOLE BODY GRP EXAM: NM BONE SCAN WHOLE BODY GRP CLINICAL HISTORY: prostate ca, ? mets,C61. TECHNIQUE: Injected Dose: 25 mCi Tc-99m MDP Delayed Images: 2-3 hours. COMPARISON: CT CT CHEST PE CTA from 07/11/[address] CHEST/ABD/PEL W from 12/01/2023 FINDINGS: Symmetric axial uptake. Bilateral renal excretion is identified. No focal area of intense suspicious uptake is seen. Degenerative uptake is seen in the shoulders bilaterally, left greater than right. T here also is degenerative signal seen in the lumbar spine. There is mild increased uptake seen in th e sternum. No aggressive lytic or sclerotic lesion is seen in the sternum on the CT scan from the day. The sternum appears unchanged compared to CT scan of the chest from 07/11/2019. Increased r adiotracer uptake is seen in the soft tissues of the right forearm and hand most suggestive of an art erial injection of radiotracer isotope. IMPRESSION: 1. No definite evidence of metastatic disease. DATA REPOSITORY:
[2023-12-01] MEDS: Barium Sulfate 2% W/V-Berry Smoothie 450 ML BTL PO ×2 (09:29→09:30)
[2023-12-01 09:36] LABS: Estimated GFR 80.47 (mL/min/1.73m2)
[2023-12-01] MEDS: Normal Saline - Diluent 50 ML VIAL IJ (11:14)
[2023-12-01] MEDS: Omnipaque 350 MG/ML 500 ML BTL-Imaging package IJ (11:15)
== END ==
PROVIDERS: PCP Family Medicine; Visit Provider Urology
DX: C61 Malignant neoplasm of prostate (principal)
CPT/HCPCS: 74177; 78306; 71260; 82565

== ENCOUNTER → 2023-12-07 13:14 | Outpatient (BNVA) | payer MEDICARE, SELFPAY | PROVIDERS: PCP Family Medicine; Referring Provider Family Medicine; Visit Provider Urology | DX: C61 Malignant neoplasm of prostate (principal) | CPT/HCPCS: 99443 ==

== ENCOUNTER → 2023-12-21 03:46 | Outpatient (CLI) | payer MEDICARE, SELFPAY ==
--- NOTE | 2023-12-21 14:46 | DI.CT_ITS ---
Exam(s) CT CHEST WO EXAM: CT CHEST WO CLINICAL HISTORY: reassess thoracic aneurysm,LUNG NODULE,R91.1. TECHNIQUE: Imaging protocol: Axial computed tomography images were obtained and coronal and sagittal reformatted images were created and reviewed. CONTRAST MATERIAL: Noncontrast COMPARISON: CT CT CHEST/ABD/PEL W from 12/01/2023 FINDINGS: Pulmonary parenchyma: No consolidation. No suspicious nodules. Emphysema: Mild centrilobular emphysema. Tracheobronchial tree: No mucous plugging. No bronchiectasis . Interstitial changes: Interstitial changes greatest at the lung bases. Bulla at posterior right lowe r lobe.. Pleura: No effusion or pneumothorax. Heart: The heart is mildly dilated. Pacemaker.The coronary arteries show moderatecalcifications. Aorta: Ascending aorta measures 4.3 x 4.2 cm, unchanged from prior. Mildatherosclerotic changes. Lymph nodes: No enlarged lymph nodes. Bones: Degenerative changes are seen. No evidence of compression fracture. Upper abdomen: Unremarkable. Soft tissues: Unremarkable. IMPRESSION: Stable dilatation of the ascending aorta to 4.2 x 4.3 cm. No suspicious pulmonary nodules. Emphysematous and fibrotic changes. No acute abnormality. RADIATION DOSE DELIVERED: Total DLP Total DLP DATA REPOSITORY: All CT scans at this facility are submitted to the National Radiology Data Registry (NRDR) Dose Index Registry (DIR) with the [employer] (ACR). RADIATION OPTIMIZATION: All CT scans at this facility use at least one of these dose optimization te chniques: automated exposure control; mA and/or kV adjustment per patient size (includes targeted exa ms where dose is matched to clinical indication); or iterative reconstruction.
== END ==
PROVIDERS: PCP Family Medicine; Visit Provider Family Medicine
DX: R91.1 Solitary pulmonary nodule (principal)
CPT/HCPCS: 71250

== ENCOUNTER 2024-04-29 02:41 | Outpatient (CLI) | payer MEDICARE, SELFPAY ==
[2024-05-02 11:56] LABS: PSA, Ultrasensitive 24.4 ng/mL (<= 6.5)
[2024-05-05 01:20] LABS: Testosterone, Total 626 ng/dL (240-950)
== END 2024-04-29 02:42 | disposition home or self-care (01) ==
LOC: LBO 02:41
PROVIDERS: PCP Family Medicine; Visit Provider Radiology Radiation Oncology
DX: C61 Malignant neoplasm of prostate (principal)
CPT/HCPCS: 36415; 84153; 84403

== ENCOUNTER 2024-07-01 09:09 | Emergency (ER) | payer MEDICARE, SELFPAY ==
[2024-07-01] VITALS (16 sets, daily range): BP systolic 130–168; BP diastolic 80–93; PULSE 50–72; RESP 15–21; TEMP 36.5–36.8; O2SAT 93–98
--- NOTE | 2024-07-01 09:00 | RT.EKG_ITS ---
APPROVED REPORT Exam: Resting ECG Reason for Exam: Chest pain Patient Location: E HR:71 bpm ECG Measurements Heart Rate 71 AXIS NC 217 P [id number] QRSd 139 QRS -69 QT 417 T -19 QTc 454 Conclusion Atrial-paced complexes...other complexes also detected Borderline prolonged NC interval...NC >212, V-rate 50- 90 RBBB and LAFB...QRSd >120mS, axis(-40,240) Atrial paced rhythm at a rate of 71. First-degree AV block. Right bundle branch block with left axi s deviation?bifascicular block. No acute injury pattern. No prior for comparison.
--- NOTE | 2024-07-01 09:15 | DI.CT_ITS ---
Exam(s) CT CHEST PE CTA EXAM: CT CHEST PE CTA the CLINICAL HISTORY: pleuritic R chest pain; SOB; has active prostateCA. TECHNIQUE: Imaging Protocol: Axial CT angiography was performed with multi-slice acquisition and mu lti-planar reconstructions as well as axial, coronal and sagittal MIP reconstructions. CONTRAST MATERIAL: Intravenous: Omnipaque 350 Contrast volume:100 ml COMPARISON: CT CT CHEST WO from 12/21/2023 FINDINGS: Pulmonary Arteries: No evidence of filling defect to suggest pulmonary emboli. Tracheobronchial tree: No mucous plugging. Mediastinum and Janel: No dominant adenopathy or fluid collection. Pulmonary parenchyma: Evaluation somewhat limited due to expiratory changes. No consolidation or dom inant measurable mass. Emphysematous changes greater at the upper lobes. Bleb in medial right lowe r lobe. Fibrotic changes at the lung bases. Pleura: No effusion or pneumothorax. Heart: The heart is mildly dilated. Moderate coronary artery calcifications are seen. Pacemaker le ads. Aorta: Ascending aorta measures 4.2 cm, unchanged. No dissection. Upper abdomen: No acute findings. Bones: Unremarkable for age. Tubes, Catheters, and Lines: None Soft tissues: Pacemaker over left pectoral muscle. Other guided measures IMPRESSION: No evidence of pulmonary embolism. Emphysematous fibrotic changes. No evidence of focal infiltrate. Evaluation of the lungs limited du e to expiratory changes. RADIATION DOSE DELIVERED: 66.22mGy.cm Total DLP DATA REPOSITORY: All CT scans at this facility are submitted to the National Radiology Data Registry (NRDR) Dose Index Registry (DIR) with the [employer] (ACR). RADIATION OPTIMIZATION: All CT scans at this facility use at least one of these dose optimization te chniques: automated exposure control; mA and/or kV adjustment per patient size (includes targeted exa ms where dose is matched to clinical indication); or iterative reconstruction.
--- NOTE | 2024-07-01 09:20 | ED.GENADUL_ITS ---
Discharge Plan Disposition Patient Disposition: Home Condition: Stable Discharge Details Clinical Impression: Costochondritis Primary Care Provider: Blaire Delgado ED Provider: Conner Bales Home Meds and New Rx's Prescriptions: Continued aspirin 81 mg tablet,delayed release (DR/EC) 81 mg PO DAILY multivitamin [Daily Multi-Vitamin] Tablet 1 tab PO DAILY Qty: 1 sildenafil (pulm.hypertension) 20 mg tablet 60 mg PO ONCE PRN (Reason: sexual activity) Qty: 30 5RF epinephrine [EpiPen 2-Ahng] 0.3 mg/0.3 mL auto-injector 0.3 mg IM ONCE Qty: 2 2RF Rx Instructions: as a single dose; may repeat once hydrocortisone [Anusol-HC] 2.5 % cream with perineal applicator 1 applic [place] DAILY PRN (Reason: hemorrhoids) Qty: 30 0RF rosuvastatin 5 mg tablet 5 mg PO DAILY Qty: 90 3RF zolpidem 5 mg tablet 5 mg PO QHS PRN (Reason: sleep) Qty: 7 0RF Discharge Instructions Instructions: Costochondritis Additional Instructions: You were seen in the emergency department for your pleuritic rib and back pain, your cardiac workup is negative and your CT scan shows no pulmonary embolism or blood clot in the lungs. There is no other abnormality noted on your labs or imaging. Please try topical diclofenac gel for relief of this pain, please follow-up with your regular doctor about possible need for outpatient echocardiogram and stress test at some point in the future. Please return to the emergency department for any increasing chest pain especially shortness of breath, dizziness, sweating or any other emergent concern. Referrals: Blaire Delgado MD [Primary Care Provider] - Discharge Data Discharge Date/Time-TO BE ENTERED AT DEPARTURE: 07/01/24 12:30 HPI General Date/Time Provider Initiated Documentation: 07/01/24 09:20 . HPI Narrative: 74 year-old male presents to ED today by POV/ambulating with a chief complaint of chest pain- pleuritic in nature in his R back and occasionally L axilla, also jaw pain but had recent dental extractions with onset for the past 2 weeks. Quality described as sharp pain, no radiation to cough, shortness of breath, sweating, dizziness, fever, near syncope. Severity is described as sometimes severe. Palliating factors include nothing specific attempted. Provoking factors include nothing specific. Events leading up to the incident/Associated Symptoms: Patient has a known thoracic aortic aneurysm of stable nature, has active prostate CA, history of heavy ETOH use. Patient not anticoagulated. Related Data Home Medications ?Medication ?Instructions ?Recorded ?Confirmed epinephrine 0.3 mg/0.3 mL 0.3 mg (0.3 mL) IM ONCE 06/20/19 07/01/24 injection, auto-injector (EpiPen anaphylaxis #2 ea 2-Hang) aspirin 81 mg tablet,delayed 81 mg PO DAILY 06/05/21 07/01/24 release multivitamin (Daily Multi-Vitamin 1 tab PO DAILY ##1 06/27/22 07/01/24 tablet) sildenafil (pulm.hypertension) 20 60 mg (3 x 20 mg) PO ONCE PRN 07/01/23 07/01/24 mg tablet sexual activity #30 tabs rosuvastatin 5 mg tablet 5 mg PO DAILY #90 tabs 09/23/23 07/01/24 hydrocortisone 2.5 % topical cream 1 applic [place] DAILY PRN hemorrhoids 11/10/23 07/01/24 with perineal applicator #30 grams (Anusol-HC) zolpidem 5 mg tablet 5 mg PO QHS PRN sleep #7 tabs 02/24/24 07/01/24 Previous Rx's ?Medication ?Instructions ?Recorded epinephrine 0.3 mg/0.3 mL 0.3 mg (0.3 mL) IM ONCE 06/20/19 injection, auto-injector (EpiPen anaphylaxis #2 ea 2-Hang) sildenafil (pulm.hypertension) 20 60 mg (3 x 20 mg) PO ONCE PRN 07/01/23 mg tablet sexual activity #30 tabs rosuvastatin 5 mg tablet 5 mg PO DAILY #90 tabs 09/23/23 hydrocortisone 2.5 % topical cream 1 applic [place] DAILY PRN hemorrhoids 11/10/23 with perineal applicator #30 grams (Anusol-HC) zolpidem 5 mg tablet 5 mg PO QHS PRN sleep #7 tabs 02/24/24 Allergies Allergy/AdvReac Type Severity Reaction Status Date / Time bee venom protein (honey bee) Allergy Mild swelling Verified 07/01/24 09:19 of the upper lip. cephalexin Allergy Pt unsure Verified 07/01/24 09:19 what happens General Stated Complaint: Chest Pain [place]: 3 Review of Systems All systems reviewed & are unremarkable except as noted in HPI and below Exam Narrative Exam Narrative: GENERAL APPEARANCE: Well-nourished, non-toxic, awake and alert, atraumatic, no acute distress. SKIN: Warm, pink, dry, intact, without rashes/lesions/ulcerations. HEAD: Normocephalic, atraumatic, normal hair distribution for gender/age. EYES: Normal conjunctiva, no exudates on lids/lashes. ENT: Nares patent, no circumoral cyanosis, no facial swelling NECK: Supple, trachea midline, painless cervical ROM. LUNGS/CHEST: Lungs CTA bilaterally- no rhonchi/rales/wheezes diffusely, non- labored respirations, normal A/P diameter, symmetrical expansion, no chest wall deformity, TTP R shoulderblade HEART (CV/PV): Regular rate and rhythm without murmur, no peripheral edema, no JVD. ABDOMEN: Soft, non-distended, no guarding. MSK: Normal ROM, no swelling/deformity to bilateral UEs or LEs, moving all extremities without weakness, no cyanosis, spine midline without tenderness, normal curvature. NEURO: Mental Status AAOx4 - alert to person, place, time, events No facial droop, no forehead involvement. Motor: No focal weakness - strength 5/5 in bilateral UEs and LEs, proximal and distal, symmetric. Sensory: sensation intact to light touch globally. Gait normal: patient ambulated without ataxia into ED room. PSYCH: euthymic, cooperative, pleasant, appropriate speech Course Vital Signs Vital signs: Vital Signs Temperature 36.8 C 07/01/24 09:12 Pulse 62 07/01/24 09:12 Respiratory Rate 18 07/01/24 09:12 Blood Pressure 150/82 H 07/01/24 09:12 Temperature 36.8 C 07/01/24 09:12 Temperature Source Oral 07/01/24 09:12 Pulse 62 07/01/24 09:12 Respiratory Rate 18 07/01/24 09:12 Blood Pressure 150/82 H 07/01/24 09:12 Blood Pressure Position Sitting 07/01/24 09:12 Oxygen Delivery Method Room Air 07/01/24 09:12 Oxygen Flow Rate 0 07/01/24 09:12 Medical Decision Making This dictation utilizes [id number] dictation software and may contain unedited grammatical errors. 74 year-old male presents to ED today by POV/ambulating with a chief complaint of chest pain- pleuritic in nature in his R back and occasionally L axilla, also jaw pain but had recent dental extractions with onset for the past 2 weeks. Quality described as sharp pain, no radiation to cough, shortness of breath, sweating, dizziness, fever, near syncope. Severity is described as sometimes severe. Palliating factors include nothing specific attempted. Provoking factors include nothing specific. Events leading up to the incident/Associated Symptoms: Patient has a known thoracic aortic aneurysm of stable nature, has active prostate CA, history of heavy ETOH use. Family and social history: No recent travel, no sick contacts. Pertinent exam findings / vital signs include pleuritic right back pain right paraspinal/shoulder blade region, no tenderness in the left chest currently, benign cardiac exam, lungs CTA diffusely, benign abdomen, neuro intact. Differential / pathologies of concern include PE, costochondritis, muscle strain, pneumonia, ACS, less likely thoracic aortic dissection. Diagnostic studies of: -CBC, CMP, Serial Trop I's, BNP, CTA Chest. -CBC benign -CMP no abnormality -serial trop's negative, 5 & 5 -BNP WNL -CTA Chest negative for PE, unchanged TAA diameter Interventions of: -none. ED Course/Assessment/Plan: 74-year-old male is 2 weeks of occasional intermittent pleuritic chest pain mostly around the right shoulder blade and occasionally left axilla, has no other symptoms, was referred here by staff at the cancer center for the symptoms as well as jaw pain but he did have recent dental extractions, he has a known thoracic aortic aneurysm, due to his pleuritic chest pain and known prostate cancer and rule out PE, his thoracic aorta has stable diameter of 4.2 cm, there is no other abnormality and serial troponins are negative with reliable duration. I recommend he follow-up with his primary care provider and return to the ED for any emergent concerns. Findings not consistent with PE, thoracic dissection, ACS, CHF, pneumonia, rib lesions. Disposition of costochondritis. Patient verbalized understanding of the plan and return to ED criteria and engaged in shared decision making. Medical Records Medical records reviewed: Yes I reviewed the patient's medical records. Imaging Data Radiologic Study: Attestation: I personally reviewed and interpreted this imaging study as follows: Imaging: CT Scan Radiologist's impression: EXAM: CT CHEST PE CTA the CLINICAL HISTORY: pleuritic R chest pain; SOB; has active prostateCA. TECHNIQUE: Imaging Protocol: Axial CT angiography was performed with multi- slice acquisition and multi-planar reconstructions as well as axial, coronal and sagittal MIP reconstructions. CONTRAST MATERIAL: Intravenous: Omnipaque 350 Contrast volume:100 ml COMPARISON: CT CT CHEST WO from 12/21/2023 FINDINGS: Pulmonary Arteries: No evidence of filling defect to suggest pulmonary emboli. Tracheobronchial tree: No mucous plugging. Mediastinum and Janel: No dominant adenopathy or fluid collection. Pulmonary parenchyma: Evaluation somewhat limited due to expiratory changes. No consolidation or dominant measurable mass. Emphysematous changes greater at the upper lobes. Bleb in medial right lower lobe. Fibrotic changes at the lung bases. Pleura: No effusion or pneumothorax. Heart: The heart is mildly dilated. Moderate coronary artery calcifications are seen. Pacemaker leads. Aorta: Ascending aorta measures 4.2 cm, unchanged. No dissection. Upper abdomen: No acute findings. Bones: Unremarkable for age. Tubes, Catheters, and Lines: None Soft tissues: Pacemaker over left pectoral muscle. Other guided measures IMPRESSION: No evidence of pulmonary embolism. Emphysematous fibrotic changes. No evidence of focal infiltrate. Evaluation of the lungs limited due to expiratory changes. Lab Data Lab results reviewed: Yes I reviewed the patient's lab results. Labs: Laboratory Tests Range/Units 07/01/24 07/01/24 09:36 10:36 WBC (4.4-10.8) 10^3/uL 8.17 RBC (4.36-5.78) 10^6/uL 4.91 Hgb (13.5-17.5) g/dL 16.0 Hct (40.0-50.0) % 46.4 MCV (80-95) fL 95 MCH (27.0-33.0) pg 32.6 MCHC (32.0-36.0) % 34.5 RDW (11.8-14.1) % 11.9 Plt Count (130-400) 10^3/uL 222 MPV (8.0-11.0) fL 8.4 Immature Gran % % 0.4 Neutrophils % % 67.4 Lymphocytes % % 15.8 Monocytes % % 13.6 Eosinophils % % 2.3 Basophils % % 0.5 Nucleated RBC % (0.0-0.3) % 0.0 Absolute Neutrophils (1.2-6.7) 10^3/uL 5.51 Absolute Lymphocytes (1.2-3.4) 10^3/uL 1.29 Absolute Monocytes (0.1-0.8) 10^3/uL 1.11 H Absolute Eosinophils (0.0-0.7) 10^3/uL 0.19 Absolute Basophils (0.0-0.2) 10^3/uL 0.04 Sodium (136-145) mmol/L 139 Potassium (3.5-5.1) mmol/L 4.3 Chloride (98-107) mmol/L 101 Carbon Dioxide (21.0-32.0) mmol/L 28.8 Anion Gap (3-11) mmol/L 9.2 BUN (7-18) mg/dL 17 Creatinine (0.70-1.30) mg/dL 1.0 Est GFR (CKD-EPI 2020) (mL/min/1.73m2) 80.47 Glucose (74-106) mg/dL 84 Calcium (8.5-10.1) mg/dL 9.1 Total Bilirubin (0.2-1.0) mg/dL 1.06 H AST (15-37) U/L 22 ALT (16-63) U/L 21 Alkaline Phosphatase (46-116) U/L 77 Troponin I (<or=76) ng/L 5 5 NT-Pro-B Natriuret Pep (<300) pg/mL 76 Total Protein (6.4-8.2) g/dL 7.9 Albumin (3.4-5.0) g/dL 3.5 Quality:SDOH Health Related Social Needs: No Data to Display PFSH All Active Problems (Updated 07/01/24 @ 12:11 by SUSIE Delong) Costochondritis (Acute) Thoracic aortic aneurysm (Acute) Back pain (Acute) Prostate cancer (Chronic) Heavy alcohol use (Acute) Bilateral sensorineural hearing loss (Chronic) 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 Tubular adenoma of colon (Chronic 07/19/09) on colonoscopy in 2008 and 2021 Raynauds disease (Chronic) Medical History (Updated 07/01/24 @ 12:11 by SUSIE Delong) Elevated PSA monitoring with urology; MRI 03/2023 equivocal History of complete AV block Concussion recent fall, hit head, had stiches, ER diagnosed concussion Hx of diverticulitis of colon with perforation 07/2022 Pneumothorax, left Rib fracture Surgical History (Updated 07/01/23 @ 11:42 by Blaire Delgado MD) Status post Phil's procedure (~07/2022) History of colostomy reversal (~09/2022) History of colonoscopy with polypectomy (~02/21/22) Status post lumbar spinal fusion (~2010) Status post cardiac pacemaker procedure (~2017) managed by [facility] Status post vascular bypass (~10/2020) to repair right popliteal aneurysm - at [facility]; annual surveillance Family History Mother No problems noted. Father No problems noted. Sister No problems noted. Sister No problems noted. Brother No problems noted. Daughter No problems noted. Daughter No problems noted. Daughter No problems noted. Daughter No problems noted. Social History Smoking/Tobacco Use Status: Former Tobacco Use Quit Date: 09/28/10 Tobacco: How many years used: 30 Smokeless tobacco user: other (pipe) Smoking risk assessment performed?: Yes Alcohol Intake: current Alcohol Intake frequency: 3 or more drinks per day Alcohol type: beer, wine and hard liquor Drug use: Occasionally Substance use type: marijuana Details: alcohol: t-6, few drinks. 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 What is your relationship status?: Panel score (0-1 are the most socially isolated patients): 0 Do you feel safe at home: Yes (Lives alone) Do you feel safe in your relationship?: Yes
[2024-07-01 09:46] LABS: Abs Immature Grans 0.03 10^3/uL (0.0-0.06); Absolute Basophil Count 0.04 10^3/uL (0.0-0.2); Absolute Eosinophil Count 0.19 10^3/uL (0.0-0.7); Absolute Lymphocyte Count 1.29 10^3/uL (1.2-3.4); Absolute Monocyte Count 1.11 10^3/uL (0.1-0.8); Absolute Neutrophil Count 5.51 10^3/uL (1.2-6.7); Basophils % 0.5 %; Eosinophils % 2.3 %; HCT 46.4 % (40.0-50.0); Immature Grans % 0.4 %; Lymphocytes % 15.8 %; MCH 32.6 pg (27.0-33.0); MCHC 34.5 % (32.0-36.0); MCV 95 fL (80-95); MPV 8.4 fL (8.0-11.0); Monocytes % 13.6 %; Neutrophils % 67.4 %; Platelet Count 222 10^3/uL (130-400); RBC 4.91 10^6/uL (4.36-5.78); RDW 11.9 % (11.8-14.1); RDW-SD 41.6 fL; WBC 8.17 10^3/uL (4.4-10.8)
[2024-07-01 10:12] LABS: ALT 21 U/L (16-63); AST 22 U/L (15-37); Albumin 3.5 g/dL (3.4-5.0); Alkaline Phosphatase 77 U/L (46-116); Anion Gap 9.2 mmol/L (3-11); BUN 17 mg/dL (7-18); Bilirubin, Total 1.06 mg/dL (0.2-1.0); CO2 28.8 mmol/L (21.0-32.0); Calcium 9.1 mg/dL (8.5-10.1); Chloride 101 mmol/L (98-107); Estimated GFR 80.47 (mL/min/1.73m2); Glucose 84 mg/dL (74-106); NT-proBNP 76 pg/mL (<300); Potassium 4.3 mmol/L (3.5-5.1); Sodium 139 mmol/L (136-145); Total Protein 7.9 g/dL (6.4-8.2); Troponin I 5 ng/L (<or=76)
[2024-07-01 11:01] LABS: Troponin I 5 ng/L (<or=76)
[2024-07-01] MEDS: Normal Saline - Diluent 50 ML VIAL IJ (11:28)
[2024-07-01] MEDS: Omnipaque 350 MG/ML 100 ML BTL IJ (11:29)
== END 2024-07-01 12:30 | disposition home or self-care (01) ==
PROVIDERS: Emergency Provider Physician Assistant; PCP Family Medicine
DX: M94.0 Chondrocostal junction syndrome [Tietze] (principal)
CPT/HCPCS: 36415; 71275; 80053; 93005; 99285; 83880; 84484; 85025; 93010; 99284; J3490

== ENCOUNTER 2024-07-07 12:06 | Outpatient (CLI) | payer MEDICARE, SELFPAY ==
--- NOTE | 2024-07-07 20:52 | W.PFT ---
Date of service: 07/07/24 Time of Service: 15:18 Pulmonary Function Test Result Indications: Pulmonary fibrosis Interpretation Spirometry: There is no airflow limitation. Lung Volumes: There is mild restriction Diffusion Capacity: Reduced diffusion Airway Pressure: Normal airways resistance Impression Mild restrictive lung disease with a decreased diffusion consistent with ILD. Clinical Correlation therefore is recommended.
== END 2024-07-07 12:07 | disposition home or self-care (01) ==
PROVIDERS: PCP Family Medicine; Visit Provider Family Medicine
DX: R91.8 Other nonspecific abnormal finding of lung field (principal); J84.112 Idiopathic pulmonary fibrosis
CPT/HCPCS: 94010; 94726; 94729

== ENCOUNTER 2024-07-12 01:41 | Outpatient (CLI) | payer MEDICARE, SELFPAY ==
--- NOTE | 2024-07-12 08:30 | DI.US_ITS ---
APPROVED REPORT EXAM: Comprehensive 2D, Doppler, and color-flow Echocardiogram Patient Location: Out-Patient [employer] Operator: Gisela Soliz RDCS (AE) Indications: New A Fib, Heart Murmur, Pacemaker Other Information Study Quality: Adequate Conclusion Normal left ventricular wall thickness and chamber size. Ejection fraction is 60%. Wall motion is n ormal Normal right ventricular size and funtion Both atria are mildly enlarged Device lead noted in the right heart Trileaflet aortic valve with trace regurgitation Normal mitral valve with mild regurgitation Normal tricuspid valve with mild regurgitation. Estimated right ventricular systolic pressure is 32 mmHg Ascending aorta measures 4.1 cm Wall motion Left Ventricle The left ventricle is normal size. The left ventricular systolic function is normal. The left ventric ular ejection fraction is within the normal range. There is normal left ventricular wall thickness. T here is normal LV segmental wall motion. There is no ventricular septal defect visualized. LVEF is 59 %. Right Ventricle The right ventricle is normal size. The right ventricular systolic function is normal. Pacemaker lead is present in the right ventricle. Atria The left atrium size is mildly dilated The right atrium size is mildly dilated The interatrial septum is intact with no evidence for an atrial septal defect. Aortic Valve The aortic valve is normal in structure. Aortic valve is trileaflet. There is no aortic valvular sten osis. Trace aortic regurgitation. Mitral Valve The mitral valve is normal in structure. No evidence of mitral valve stenosis. Mild mitral regurgitat ion. Tricuspid Valve The tricuspid valve is normal in structure. There is no tricuspid valve stenosis. Mild tricuspid regu rgitation. The RVSP is 32.2mmHg. Pulmonic Valve The pulmonary valve is normal in structure. There is no pulmonic valvular stenosis. Trace pulmonic re gurgitation. Great Vessels The aortic root is normal in size. The ascending aorta is moderately dilated. Aortic arch is not wel l visualized. IVC is normal in size and collapses >50% with inspiration. Pericardium There is no pericardial effusion. 2D Dimensions IVSD d PLAX 0.96 cm M: 0.6-1.2 Ao Root d 3.19 cm M: 3.1 - 3.7 LVPW d PLAX 0.96 cm M: 0.6 - 1.2 Ao Asc Diam d 4.09 cm M: 2.6 - 3.4 LVID d PLAX 4.60 cm M: 4.2 - 5.8 LVDs 3.13 cm M: 2.5 - 4.0 LV EF Teichholz 60.0 % FS 31.90 % LV EDV (Teich) 97.2 mL LV ESV (Teich) 38.8 mL M-Mode TAPSE 1.72 cm (M/F) >1.7 Auto EF LV EDV A4C 75.5 mL LV EDV A2C 72.7 mL LV EDV BP 73.8 mL LV ESV A4C 30.9 mL LV ESV A2C 30.8 mL LV ESV BP 31.0 mL LVEF(%) A4C 59.0 % LVEF(%) A2C 57.6 % LVEF(%) BP 58.0 % LV SV A4C 44.5 ml LV SV A2C 41.9 ml LV SV BP 42.8 ml LV CO A4C 2.2 L/min LV CO A2C 2.1 L/min LV CO BP 2.2 L/min HR A4C 50.00 BPM HR A2C 50.00 BPM LV EDV Index (BP) LA Volume LA Length A4C 5.4 cm LA Length A2C 7.2 cm LA Area A4C s 16.41 cm2 LA Area A2C s 25.69 cm2 LA Vol A4C A-L 41.95 mL LA Vol A2C A-L 77.87 mL LA Vol Biplane A-L 65.7 mL LA Vol/BSA A4C A-L LA Vol/BSA A2C A-L LA Vol/BSA BP A-L 34.4 mL/m2 LA Vol A4C MOD 38.7 mL LA Vol A2C MOD 71.6 mL LA Vol BP MOD 60.5 mL RA Volume RA Area A4C 17.0 cm2 RA ESV A4C (A-L) 43.4mL RA Vol/BSA A4C A-L RA Length A4C 5.7 cm RA ESV A4C (MOD) 41.4mL LV Diastology MV E' medial 0.069 (>0.07 m/s) MV E Vmax 0.57 (0.4-1.3 m/s) MV E/E' MED 8.35 (<14) MV A Vmax 0.70 (0.4-1.3 m/s) MV E' lateral 0.082 (>0.1 m/s) E/A Ratio 0.8 MV E/E' LAT 6.99 (<14) MV E' Average 0.075 m/s MV E/E'(average) 7.61 Aortic Valve AoV Vmax 1.31 m/s LVOT Vmax 1.00 m/s AoV Peak Grad 51.5 mmHg LVOT Peak Grad 4.0 mmHg AoV Area (Vmax) 2.45 cm2 LVOT VTI 0.222 m AoV VTI 0.310 m LVOT Mean Grad 1.9 mmHg AoV Mean Min. 0.88 m/s LVOT SV 71.66 mL AoV Mean Grad 3.5 mmHg LVOT Diam s 2.00 cm AoV Area (VTI) 2.31 cm2 AV Regurg Peak Gr. 6.89 mmHg Velocity Ratio 0.76 AR Decel Dickinson 1.3m/sec2 AR DT 3787 msec AR PHT 1098 msec AR Vmax 4.90 m/s Mitral Valve MV DT 324 (160-240 msec) MV Vmax TIPS 0.67 m/s MV Mean Grad 0.6 (<2mmHg) MV VTI 0.305 m Pulmonary Valve PV Vmax 0.74 (0.5-1.5 m/s) RVOT Vmax 0.46 m/s PV Peak Grad 2.2 mmHg RVOT Peak Gr. 0.9 mmHg PV Mean Min 0.47 m/s RVOT VTI 0.119 m PV Mean Grad 1.1 mmHg RVOT Mean Gr. 0.5 mmHg Tricuspid Valve RA Pressure 3.00 mmHg TR Vmax 2.70 m/s TR Peak Grad 29.1 mmHg RVSP (TR) 32.2 mmHg
== END 2024-07-12 02:01 ==
LOC: DI 01:41
PROVIDERS: PCP Family Medicine; Visit Provider Family Medicine
DX: R01.1 Cardiac murmur, unspecified (principal); I48.20 Chronic atrial fibrillation, unspecified
CPT/HCPCS: 93306

== ENCOUNTER → 2024-07-14 08:11 | Outpatient (BNVA) | payer MEDICARE, SELFPAY | PROVIDERS: PCP Family Medicine; Referring Provider Family Medicine; Visit Provider Physician Assistant Surgical | DX: Z87.891 Personal history of nicotine dependence (principal); J84.10 Pulmonary fibrosis, unspecified | CPT/HCPCS: 99215 ==

== ENCOUNTER 2024-07-14 11:23 | Outpatient (CLI) | payer MEDICARE, SELFPAY ==
[2024-07-14 22:54] LABS: Rheumatoid Factor 11.7 IU/mL (<12.0)
[2024-07-15 09:31] LABS: Cyclic Citrullinated Peptide <2.5 U/mL (<5.0)
[2024-07-15 17:56] LABS: Myeloperoxidase Ab IgG <0.2 U (>=0.4); Proteinase 3 Ab (PR3) <0.2 U
[2024-07-18 15:25] LABS: ANA Interpretation Positive (Negative)
== END 2024-07-14 11:24 | disposition home or self-care (01) ==
LOC: LBO 11:23
PROVIDERS: PCP Family Medicine; Visit Provider Physician Assistant Surgical
DX: J84.10 Pulmonary fibrosis, unspecified (principal); Z87.891 Personal history of nicotine dependence
CPT/HCPCS: 36415; 86200; 99215; 83516; 86038; 86431

== ENCOUNTER 2024-07-20 02:21 | Outpatient (CLI) | payer MEDICARE, SELFPAY ==
--- NOTE | 2024-07-20 06:30 | DI.CT_ITS ---
Exam(s) CT CHEST HIGH RESOLUTION EXAM: CT CHEST HIGH RESOLUTION CLINICAL HISTORY: PULMONARY FIBROSIS,J84.10. TECHNIQUE: Multi planar reconstructions were performed. CONTRAST MATERIAL: None COMPARISON: CT CT CHEST PE CTA from 07/01/2024 FINDINGS: CHEST: LUNGS: There is significant bilateral interstitial fibrosis changes again noted. Most prominent in t he mid-lower lung garner. No associated pleural effusions. There a thin but not imperceptible wall bulla in the right lower lobe measuring 3.8 cm wide by 2.8 cm x 4.4 cm craniocaudal. No asymmetric w all thickening nor mural nodules therein and no fluid level therein. MEDIASTINUM: There is no obvious hilar nor mediastinal adenopathy. CARDIAC: Heart size is normal. There is mild thickening of the pericardium again noted, unchanged. Cardiac pacemaker wires again noted. Descending thoracic aorta is again noted to be abnormally enlar ged with diameter of 4.3 cm. Diameter of the thoracic AA arch is also enlarged, measuring 3.2 cm. D iameter of the proximal descending thoracic aorta is enlarged measuring 3.0 cm. Diameter of the mid descending thoracic aorta mildly enlarged. VISUALIZED UPPER ABDOMEN:Undigested pill noted in the stomach. OSSEOUS: No significant osseous lesions.No acute fractures.. IMPRESSION: 1. Bilateral pulmonary fibrosis again noted. No masses nor pleural effusions. 2. There is a 3.8 x 2.8 x 4.4 cm bulla in the right lower lobe again noted. This does not contain as ymmetric mural nodules nor fluid level. 3. Enlarged thoracic aorta is again noted. RADIATION DOSE DELIVERED: 327.8mGy.cm Total DLP DATA REPOSITORY: All CT scans at this facility are submitted to the National Radiology Data Registry (NRDR) Dose Index Registry (DIR) with the [employer] (ACR). RADIATION OPTIMIZATION: All CT scans at this facility use at least one of these dose optimization te chniques: automated exposure control; mA and/or kV adjustment per patient size (includes targeted exa ms where dose is matched to clinical indication); or iterative reconstruction.
== END 2024-07-20 02:41 ==
LOC: DI 02:22
PROVIDERS: PCP Family Medicine; Visit Provider Physician Assistant Surgical
DX: J84.10 Pulmonary fibrosis, unspecified (principal)
CPT/HCPCS: 71250

== ENCOUNTER 2024-09-30 08:46 | Emergency (ER) | payer MEDICARE, SELFPAY ==
--- NOTE | 2024-09-30 08:45 | RT.EKG_ITS ---
APPROVED REPORT Exam: Resting ECG Reason for Exam: Palpitations Patient Location: E HR:66 bpm ECG Measurements Heart Rate 66 AXIS NE 213 P [id number] QRSd 130 QRS -71 QT 447 T -7 QTc 471 Conclusion Atrial-paced complexes...other complexes also detected Borderline prolonged NE interval...NE >212, V-rate 50- 90 RBBB and LAFB...QRSd >120mS, axis(-40,240)
[2024-09-30 08:51] VITALS: BP 152/100; PULSE 81; RESP 18; O2SAT 96
--- NOTE | 2024-09-30 09:15 | DI.CT_ITS ---
Exam(s) CT THORAX ABD/PEL CTA EXAM: CT THORAX ABD/PEL CTA CLINICAL HISTORY: Chest pain concern for dissection. TECHNIQUE: Imaging Protocol: Axial computed tomography images with coronal and sagittal reformatted images were created and reviewed CONTRAST MATERIAL: Intravenous: Omnipaque 350 Contrast volume:80 mL Oral: None COMPARISON: CT CT CHEST HIGH RESOLUTION from 07/20/2024 FINDINGS: CHEST: AORTA: The diameter the ascending thoracic aorta is again noted be enlarged, measuring 4.3 cm. There is also mild dilatation of the aortic arch and descending thoracic aorta. However, there is no evid ence of aortic dissection. There is no significant aneurysm in the abdominal aorta and no dissection flaps evident in the abdominal aorta. There is mild-moderate atherosclerotic involvement of the com mon iliac arteries without aneurysmal dilatation and no intimal flap to suggest dissection of these v essels. External iliac arteries exhibit mild atherosclerotic changes without aneurysms in these vess els nor in the common femoral arteries and there is also no evidence of aneurysm nor dissection withi n the internal iliac arteries. LUNGS: There is chronic interstitial disease consistent with probable fibrosis. There is a thin wall ed bulla again noted in the right lower lobe, similar to previous. There is some mild infiltrate in the anterior left lung base. No pleural effusions.. MEDIASTINUM: There is mild bilateral hilar adenopathy and mild subcarinal adenopathy. There is no ad enopathy in the anterior mediastinal fat. CARDIAC: Heart size upper normal. Pacemaker wire in the right ventricle. No pericardial effusion. ABDOMEN: No evidence of abdominal aortic aneurysm. No significant stenosis at takeoff vessels of the main ves sels off of the abdominal aorta including mesenteric arteries and renal arteries. There is no ascites. LIVER: There are no focal hepatic lesions nor dilatation of intrahepatic ducts. GALLBLADDER/BILIARY: No obvious gallbladder pathology. CBD is not dilated. PANCREAS: No evidence of pancreatic mass nor dilatation of the pancreatic duct. SPLEEN: Spleen is not enlarged. There are no intrasplenic lesions. Splenic and portal veins are ware nt. ADRENALS: There are no significant adrenal masses. KIDNEYS: Small sub cm cortical cyst in the right kidney which is not require further imaging workup. No calculi nor hydronephrosis. No solid renal masses. LYMPH NODES: There is no retroperitoneal nor para-aortic adenopathy. No obvious mesenteric masses. ABDOMINAL WALL: No evidence of significant anterior abdominal wall hernia. GI: There is no evidence of bowel obstruction, free air, nor abscess. PELVIS: LYMPH NODES: There is no intrapelvic nor inguinal adenopathy. GI: No evidence of appendicitis.There is evidence of partial sigmoid resection. There diverticuli in the sigmoid just proximal to the anastomosis. No obvious evidence of acute diverticulitis. URINARY BLADDER: There is diffuse thickening of the entire urinary bladder wall, either related to cy stitis or chronic obstruction or possibly related to radiation changes in this patient with sees in t he prostate REPRODUCTIVE: There radiation seeds in the prostate. Prostate size is normal. There is no obturator adenopathy nor adenopathy elsewhere in the pelvis. Seminal vesicles appear unremarkable. OSSEOUS: No significant osseous lesions. No fractures. There is tri level posterior fusion hardware in the lower lumbar spine from L4 through S1, supported by bilateral intrapedicular screws at these 3 levels. IMPRESSION: 1. The diameter of the ascending thoracic aorta is again noted be enlarged at 4.3 cm. There is no di ssection. No evidence of abdominal aortic aneurysm nor aneurysms of the iliac vessels. No evidence of dissection. No pericardial effusion. 2. Chronic interstitial lung disease probable fibrosis. Some mild infiltrate noted in the left lung base. No pleural effusions 3. Partial sigmoid resection. Sigmoid diverticulosis without obvious acute diverticulitis. 4. There are radiation seeds in the prostate gland. Prostate gland size is normal. However, there i s diffuse abnormal thickening of the wall the urinary bladder which is either related to cystitis or radiation changes or combination of both. 5. Fusion hardware noted in the lower lumbar spine. RADIATION DOSE DELIVERED: 559.25mGy.cm Total DLP DATA REPOSITORY: All CT scans at this facility are submitted to the National Radiology Data Registry (NRDR) Dose Index Registry (DIR) with the [employer] (ACR). RADIATION OPTIMIZATION: All CT scans at this facility use at least one of these dose optimization te chniques: automated exposure control; mA and/or kV adjustment per patient size (includes targeted exa ms where dose is matched to clinical indication); or iterative reconstruction.
--- NOTE | 2024-09-30 09:31 | W.ED.GENAD ---
Discharge Plan Disposition Patient Disposition: Home Condition: Stable Discharge Details Clinical Impression: Pneumonia Primary Care Provider: Blaire Delgado ED Provider: Ion Paniagua Home Meds and New Rx's Prescriptions: New doxycycline hyclate 100 mg capsule 100 mg PO BID Qty: 20 0RF Continued multivitamin [Daily Multi-Vitamin] Tablet 1 tab PO DAILY Qty: 1 sildenafil (pulm.hypertension) 20 mg tablet 60 mg PO ONCE PRN (Reason: sexual activity) Qty: 30 5RF Lupron Depot (3 month) 22.5 mg syringe kit 22.5 mg IM [id number] rosuvastatin 5 mg tablet 5 mg PO DAILY Qty: 90 3RF Xarelto 20 mg tablet 20 mg PO DAILY Qty: 90 3RF Rx Instructions: must administer with evening meal epinephrine [EpiPen 2-Hang] 0.3 mg/0.3 mL auto-injector 0.3 mg IM ONCE Qty: 2 2RF Rx Instructions: as a single dose; may repeat once hydrocortisone [Anusol-HC] 2.5 % cream with perineal applicator 1 applic KS DAILY PRN (Reason: hemorrhoids) Qty: 30 0RF Discharge Instructions Instructions: Pneumonia in adults Additional Instructions: Workup today does not reveal any blood clot. Is imperative that you begin taking your Xarelto again as directed by your commercial correspondent. Imaging today reveals that you have pneumonia. Take doxycycline as directed. Please watch for new or worsening symptoms and return to the ER for any concerns. Lastly, please contact your primary care providers office later today to make them aware of your ER visit, ongoing symptoms, and need for outpatient reevaluation. If symptoms or not improving, repeat chest x-ray may be indicated. HPI General Mode of arrival: ambulatory. Date/Time Provider Initiated Documentation: 09/30/24 08:51. Limitations to Documentation: no limitations. Information obtained by: patient. History of Present Illness 74 year old M presents to the emergency department with the chief complaint of Right sided chest pain, described as moderate, with intensity rated at 5. Quality is described as aching, and is localized to the chest. Patient reports radiation to back. Patient started experiencing this week(s) (2) and it has been intermittent. No relieving factors improve symptom(s), No exacerbating factors reported . Patient notes cough and other (Subjective feelings of warmth). Patient did receive the following treatments prior to arrival, none Related Data Home Medications ?Medication ?Instructions ?Recorded ?Confirmed epinephrine 0.3 mg/0.3 mL 0.3 mg (0.3 mL) IM ONCE 06/20/19 09/30/24 injection, auto-injector (EpiPen anaphylaxis #2 ea 2-Hang) multivitamin (Daily Multi-Vitamin 1 tab PO DAILY ##1 06/27/22 09/30/24 tablet) sildenafil (pulm.hypertension) 20 60 mg (3 x 20 mg) PO ONCE PRN 07/01/23 09/30/24 mg tablet sexual activity #30 tabs hydrocortisone 2.5 % topical cream 1 applic KS DAILY PRN hemorrhoids 11/10/23 09/30/24 with perineal applicator #30 grams (Anusol-HC) leuprolide (3 month) 22.5 mg (3 22.5 mg IM [id number] 09/07/24 09/30/24 month) intramuscular syringe kit (Lupron Depot) rivaroxaban 20 mg tablet (Xarelto) 20 mg PO DAILY #90 tabs 09/07/24 09/30/24 rosuvastatin 5 mg tablet 5 mg PO DAILY #90 tabs 09/07/24 09/30/24 doxycycline hyclate 100 mg capsule 100 mg PO BID #20 caps 09/30/24 Previous Rx's ?Medication ?Instructions ?Recorded epinephrine 0.3 mg/0.3 mL 0.3 mg (0.3 mL) IM ONCE 06/20/19 injection, auto-injector (EpiPen anaphylaxis #2 ea 2-Hang) sildenafil (pulm.hypertension) 20 60 mg (3 x 20 mg) PO ONCE PRN 07/01/23 mg tablet sexual activity #30 tabs hydrocortisone 2.5 % topical cream 1 applic KS DAILY PRN hemorrhoids 11/10/23 with perineal applicator #30 grams (Anusol-HC) rivaroxaban 20 mg tablet (Xarelto) 20 mg PO DAILY #90 tabs 09/07/24 rosuvastatin 5 mg tablet 5 mg PO DAILY #90 tabs 09/07/24 doxycycline hyclate 100 mg capsule 100 mg PO BID #20 caps 09/30/24 Allergies Allergy/AdvReac Type Severity Reaction Status Date / Time bee venom protein (honey bee) Allergy Mild swelling Verified 09/30/24 10:07 of the upper lip. cephalexin Allergy Pt unsure Verified 09/30/24 10:07 what happens General Stated Complaint: Chest Pain [place]: 3 Review of Systems Constitutional Constitutional: Denies chills, Denies fatigue, Denies headache(s) and Denies weakness ENT Ears, Nose, Mouth, and Throat: Denies headache(s) and Denies neck pain Cardiovascular Cardiovascular: Reports chest pain and Denies dyspnea Respiratory Respiratory: Reports cough and Denies dyspnea Gastrointestinal Gastrointestinal: Denies abdominal pain, Denies nausea and Denies vomiting Genitourinary Genitourinary: Denies dysuria Musculoskeletal Musculoskeletal: Reports back pain and Denies neck pain Integumentary/Breasts Skin/Breast: Denies rash Neurologic Neurologic: Denies headache(s) and Denies weakness Endocrine Endocrine: Denies fatigue Hematologic/Lymphatic Hematologic/Lymphatic: Reports easy bleeding and Reports easy bruising Exam Const General: cooperative, healthy appearing, comfortable and no acute distress Orientation: alert, awake and oriented x3 HENMT Head: normal to inspection, normocephalic and atraumatic Face and sinus: normal facial exam Mouth: oral mucosae normal and moist mucous membranes Throat: posterior oropharynx normal Eyes General: appearance normal, both eyes and all related structures Conjunctivae: conjunctivae normal Neck Neck: normal visual inspection, full ROM, no meningeal signs, trachea midline and supple Chest Chest: normal inspection of the chest, normal palpation of entire chest wall and no tenderness Resp Effort & Inspection: normal respiratory effort and able to speak in complete sentences Auscultation: clear to auscultation bilaterally Cardio Rate: regular rate Rhythm: regular rhythm GI Palpation: soft, not firm, no guarding and nontender Auscultation: normal bowel sounds Back/Spine/Pelvis Back: no CVA tenderness and No back tenderness Skin General skin exam: no rashes or lesions noted Neuro General: patient alert, patient awake, moves all extremities and no focal motor deficits Cognition: normal cognition Speech: speech normal Gait: normal gait Motor: muscle tone normal throughout Sensory Exam: no sensory deficits noted Extrem General: normal to inspection, full ROM, capillary refill normal, no calf tenderness and normal gait Psych Appearance: grossly normal Mental Status: mental status grossly normal Course Vital Signs Vital signs: Vital Signs Pulse 81 09/30/24 08:51 Respiratory Rate 18 09/30/24 08:51 Blood Pressure 152/100 H 09/30/24 08:51 Pulse Oximetry 96 09/30/24 08:51 Pulse 81 09/30/24 08:51 Respiratory Rate 18 09/30/24 08:51 Blood Pressure 152/100 H 09/30/24 08:51 Blood Pressure Position Sitting 09/30/24 08:51 Pulse Oximetry 96 09/30/24 08:51 Oxygen Delivery Method Room Air 09/30/24 08:51 Oxygen Flow Rate 0 09/30/24 08:51 Medical Decision Making 74-year-old gentleman who is a former smoker, past medical history of pulmonary fibrosis, chronic A-fib, thoracic aortic aneurysm, prostate cancer, alcohol use, cardiac pacemaker, presents for 2 weeks of intermittent right sided chest pain that he describes as both anterior and posterior pain which radiates to his shoulder blade. It does not travel down his arm. Nothing makes the pain better or worse. He also feels like he has been slightly more gassy as of late, belching more frequently, has used [id number] Tums. Occasional subjective warmth, admits to a dry cough but denies difficulty breathing. Patient states that his commercial correspondent placed him on Xarelto 2-3 months ago but he stopped taking this on his own a couple weeks ago because he was having frequent nosebleeds. Clinically he appears well, nontoxic. I am unable to reproduce any discomfort. Patient currently reports pain is very minimal. Pulse in the 80s, O2 sats 96% on room air. Patient with a broad differential including ACS, PE, dissection, infectious process, etc. Plan to obtain IV access, initiate cardiac workup including D-dimer, BNP, and will obtain Fluvid. Will obtain chest x-ray. Lastly, I spoke with our radiology department, recommend ordering both a CTA of the chest PE protocol and thorax, abdomen, pelvis CTA for possible dissection. Laboratory values all initially very reassuring. White blood cell count of 5.20. Hemoglobin 14.1 hematocrit 40.6 platelet count 193. CMP reveals electrolytes all within normal limits, magnesium of 1.7. COVID, flu, RSV negative. Initial troponin 5 D-dimer is elevated at 1148. BNP 136. Repeat troponin 4. Chest x-ray, subtle haziness bilateral lower bases, difficult to determine clear opacities consistent with pneumonia. The patient resting comfortably. Reassured by workup thus far. Mild right sided chest-back pain. CTA chest PE protocol and thorax, abdomen, pelvis CTA with radiology as no acute pulmonary emboli. No evidence of pulmonary infarction. Bilateral lower lobe infiltrates. Appears to be superimposed upon bilateral chronic esters ischial disease. No pleural effusion. There is bilateral hilar adenopathy. Enlarged ascending thoracic aorta again noted with a 4.2 cm diameter. No evidence of dissection. Discussed workup and findings in length with patient. Symptoms likely secondary to bilateral lower lobe infiltrates. No evidence of ACS, PE, dissection. Patient remains afebrile, O2 sat 97% on room air. Patient given single dose of oral doxycycline. Blood pressure upon discharge is 152/80. Discussed the importance of taking his Xarelto as directed by his commercial correspondent. [id number] Tylenol as directed for discomfort. Also discussed monitoring for new or evolving symptoms and returning immediately to the ER. Lastly we discussed the importance of follow-up through his PCP to be sure his pneumonia is clearing and the possible need for repeat x-ray. Patient is comfortable with this plan. Standard discharge and return precautions were provided. Patient understands, is agreeable to this plan, and has no additional questions or concerns upon discharge. This documentation was generated using [employer] system, please disregard any oddities of phrase or misspellings. Medical Records Medical records reviewed: Yes I reviewed the patient's medical records. Lab Data Lab results reviewed: Yes I reviewed the patient's lab results. Labs: Laboratory Tests Range/Units 09/30/24 09/30/24 09/30/24 09:10 09:42 10:12 WBC (4.4-10.8) 10^3/uL 5.20 RBC (4.36-5.78) 10^6/uL 4.32 L Hgb (13.5-17.5) g/dL 14.1 Hct (40.0-50.0) % 40.6 MCV (80-95) fL 94 MCH (27.0-33.0) pg 32.6 MCHC (32.0-36.0) % 34.7 RDW (11.8-14.1) % 13.5 Plt Count (130-400) 10^3/uL 193 MPV (8.0-11.0) fL 8.2 Immature Gran % % 0.6 Neutrophils % % 65.3 Lymphocytes % % 13.5 Monocytes % % 17.1 Eosinophils % % 2.7 Basophils % % 0.8 Nucleated RBC % (0.0-0.3) % 0.0 Absolute Neutrophils (1.2-6.7) 10^3/uL 3.40 Absolute Lymphocytes (1.2-3.4) 10^3/uL 0.70 L Absolute Monocytes (0.1-0.8) 10^3/uL 0.89 H Absolute Eosinophils (0.0-0.7) 10^3/uL 0.14 Absolute Basophils (0.0-0.2) 10^3/uL 0.04 PT (9.1-11.1) sec 10.9 INR (0.9-1.1) 1.1 APTT (23.6-32.8) sec 32.2 D-Dimer (<500) ng/mlFEU 1148 H Sodium (136-145) mmol/L 139 Potassium (3.5-5.1) mmol/L 4.2 Chloride (98-107) mmol/L 102 Carbon Dioxide (21.0-32.0) mmol/L 29.2 Anion Gap (3-11) mmol/L 7.8 BUN (7-18) mg/dL 13 Creatinine (0.70-1.30) mg/dL 0.8 Est GFR (CKD-EPI 2020) (mL/min/1.73m2) 94.03 Glucose (74-106) mg/dL 93 Calcium (8.5-10.1) mg/dL 8.8 Magnesium (1.8-2.4) mg/dL 1.7 L Total Bilirubin (0.2-1.0) mg/dL 0.97 AST (15-37) U/L 24 ALT (16-63) U/L 16 Alkaline Phosphatase (46-116) U/L 68 Troponin I (<or=76) ng/L 5 4 NT-Pro-B Natriuret Pep (<300) pg/mL 136 Total Protein (6.4-8.2) g/dL 7.2 Albumin (3.4-5.0) g/dL 3.4 Lipase (<78) U/L 44 COVID-19 Source Nasopharynx SARS-CoV-2 (PCR) (Negative) Negative Influenza Type A (PCR) (Negative) Negative Influenza Type B (PCR) (Negative) Negative RSV (PCR) (Negative) Negative ECG Data Attestation: I personally reviewed and interpreted this ECG (s) as follows: Interpretation: Atrial paced complexes, rate of 66. Right bundle branch block. No STEMI. Please see official report by Dr. Macias Quality:[facility] Health Related Social Needs: Health related social needs details lives off grid by [facility] All Active Problems (Updated 09/30/24 @ 11:33 by SUSIE Luong) Pneumonia (Acute) Insomnia (Acute) Right-sided low back pain without sciatica (Acute) Former smoker (Acute) Stress and adjustment reaction (Acute) Pulmonary fibrosis (Acute) undergoing evaluation with pulmonology Chronic atrial fibrillation (Acute ~06/2024) found on cardiac device check; on xarelto; normal echo Thoracic aortic aneurysm (Acute) stable on echo Prostate cancer (Chronic) s/p radiation coils - 07/06/24; Lupron Heavy alcohol use (Acute) Bilateral sensorineural hearing loss (Chronic) Cardiac pacemaker in situ (Chronic) [employer] [id number] Indication: Sick sinus syndrome Last Interrogation: 11/19/21 Elevated BP without diagnosis of hypertension (Chronic) follows at home - 126/73. Tubular adenoma of colon (Chronic 07/19/09) on colonoscopy in 2008 and 2021 Raynauds disease (Chronic) Medical History History of complete AV block Concussion recent fall, hit head, had stiches, ER diagnosed concussion Hx of diverticulitis of colon with perforation 07/2022 Pneumothorax, left Rib fracture Surgical History Status post Phil's procedure (~07/2022) History of colostomy reversal (~09/2022) History of colonoscopy with polypectomy (~02/21/22) Status post lumbar spinal fusion (~2010) Status post cardiac pacemaker procedure (~2017) managed by [facility] Status post vascular bypass (~10/2020) to repair right popliteal aneurysm - at [facility]; annual surveillance Family History Brother , 69 Acute leukemia Social History Smoking/Tobacco Use Status: Former Tobacco Use tobacco type: cigarettes and pipe Quit Date: 09/28/10 Tobacco: How many years used: 30 Smokeless tobacco user: other (pipe) Quit status: quit date established Second Hand Exposure: Yes Smoking risk assessment performed?: Yes Alcohol Intake: current Alcohol Intake frequency: 0-2 drinks per day Alcohol type: wine and hard liquor Drug use: Rarely Substance use type: marijuana Details: alcohol: t-6, few drinks. 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 What is your relationship status?: Panel score (0-1 are the most socially isolated patients): 0 Do you feel safe at home: Yes (Lives alone) Do you feel safe in your relationship?: Yes
[2024-09-30 09:43] LABS: Abs Immature Grans 0.03 10^3/uL (0.0-0.06); Absolute Basophil Count 0.04 10^3/uL (0.0-0.2); Absolute Eosinophil Count 0.14 10^3/uL (0.0-0.7); Absolute Monocyte Count 0.89 10^3/uL (0.1-0.8); Basophils % 0.8 %; Eosinophils % 2.7 %; HCT 40.6 % (40.0-50.0); HGB 14.1 g/dL (13.5-17.5); Immature Grans % 0.6 %; Lymphocytes % 13.5 %; MCH 32.6 pg (27.0-33.0); MCHC 34.7 % (32.0-36.0); MCV 94 fL (80-95); MPV 8.2 fL (8.0-11.0); Monocytes % 17.1 %; Neutrophils % 65.3 %; Platelet Count 193 10^3/uL (130-400); RBC 4.32 10^6/uL (4.36-5.78); RDW 13.5 % (11.8-14.1); RDW-SD 46.6 fL
[2024-09-30 09:56] LABS: INR 1.1 (0.9-1.1); PTT Activated 32.2 sec (23.6-32.8); Prothrombin Time 10.9 sec (9.1-11.1)
--- NOTE | 2024-09-30 10:05 | DI.RAD_ITS ---
Exam(s) XR CHEST 2V PA LATERAL EXAM: XR CHEST 2V PA LATERAL CLINICAL HISTORY: Chest pain. TECHNIQUE: 2D digital imaging was performed. COMPARISON: CR XR CHEST 2V PA LATERAL from 01/16/2023 FINDINGS: 2 views: Bipolar left subclavian pacemaker again noted with lead tips in RA and RV, unchanged Heart size remains normal. The mediastinum is not widened. No evidence of pulmonary edema nor pleural effusions. There are increased markings consistent with s ome infiltrate in the left lower lobe retrocardiac region and also right lower lobe. These are best seen on the lateral view. There are no pleural effusions. IMPRESSION: Mild infiltrate in both lung bases. No pleural effusions Cardiac pacemaker. Heart size normal. No pulmonary edema. DATA REPOSITORY: RADIATION DOSE DELIVERED:
[2024-09-30 10:07] LABS: ALT 16 U/L (16-63); AST 24 U/L (15-37); Albumin 3.4 g/dL (3.4-5.0); Alkaline Phosphatase 68 U/L (46-116); Anion Gap 7.8 mmol/L (3-11); BUN 13 mg/dL (7-18); Bilirubin, Total 0.97 mg/dL (0.2-1.0); CO2 29.2 mmol/L (21.0-32.0); CREATININE 0.8 mg/dL (0.70-1.30); Calcium 8.8 mg/dL (8.5-10.1); Chloride 102 mmol/L (98-107); D-Dimer 1148 ng/mlFEU (<500); Estimated GFR 94.03 (mL/min/1.73m2); Glucose 93 mg/dL (74-106); Lipase 44 U/L (<78); Magnesium 1.7 mg/dL (1.8-2.4); NT-proBNP 136 pg/mL (<300); Potassium 4.2 mmol/L (3.5-5.1); Sodium 139 mmol/L (136-145); Total Protein 7.2 g/dL (6.4-8.2); Troponin I 5 ng/L (<or=76)
[2024-09-30 10:27] LABS: COVID-19 PCR Negative (Negative); Influenza A PCR Negative (Negative); Influenza B PCR Negative (Negative); RSV PCR Negative (Negative)
[2024-09-30 10:29] LABS: Source Nasopharynx
[2024-09-30 10:38] LABS: Troponin I 4 ng/L (<or=76)
[2024-09-30] MEDS: Normal Saline - Diluent 50 ML VIAL IJ ×5 (10:43→11:51)
[2024-09-30] MEDS: Omnipaque 350 MG/ML 500 ML BTL-Imaging package 80 ML IJ ×2 (10:56→11:01)
--- NOTE | 2024-09-30 11:03 | DI.CT_ITS ---
Exam(s) CT CHEST PE CTA EXAM: CT CHEST PE CTA CLINICAL HISTORY: Chest pain concern for PE. TECHNIQUE: Imaging Protocol: CT angiography of the chest was performed using pulmonary embolus aliza col. Multi planar reconstructions were performed. CONTRAST MATERIAL: Intravenous: Omnipaque 350 Contrast volume: 100 cc COMPARISON: CT CT CHEST HIGH RESOLUTION from 07/20/[address] THORAX ABD/PEL CTA from 09/30/2024 FINDINGS: CHEST: PULMONARY ARTERIES: There are no intraluminal filling defects to suggest acute pulmonary emboli. LUNGS: Chronic interstitial disease again noted. There are infiltrates in both lower lobes.. There is a bulla in the right lower lobe again noted. No pleural effusions. No new findings in trachea an d mainstem bronchi. MEDIASTINUM: There is some bilateral hilar adenopathy. Also subcarinal adenopathy noted. There is n o adenopathy in the anterior mediastinal fat. Visualized thyroid unremarkable. CARDIAC: Pacemaker wire noted in the right ventricle. Heart size is upper normal. There is no peric ardial effusion.Diameter of the ascending thoracic aorta is enlarged, measuring 4.2 cm. No evidence of dissection. Diameter of the mid thoracic aortic arch and descending thoracic aorta are also sligh tly prominent. No dissection. There is no significant shift of the interventricular septum. PARTIALLY VISUALIZED UPPERMOST ABDOMEN: No obvious findings OSSEOUS: There is a healed sternal body fracture. No acute fractures evident.. IMPRESSION: 1. No evidence of acute pulmonary emboli. No evidence of pulmonary infarction. 2. Bilateral lower lobe infiltrates. Appears to be superimposed upon bilateral chronic interstitial disease. No pleural effusions. There is bilateral hilar adenopathy and subcarinal adenopathy. 3. Enlarged ascending thoracic aorta again noted with diameter 4.2 cm. No evidence of aortic dissec tion. No pericardial effusion. RADIATION DOSE DELIVERED: 65.23mGy.cm Total DLP DATA REPOSITORY: All CT scans at this facility are submitted to the National Radiology Data Registry (NRDR) Dose Index Registry (DIR) with the [employer] (ACR). RADIATION OPTIMIZATION: All CT scans at this facility use at least one of these dose optimization te chniques: automated exposure control; mA and/or kV adjustment per patient size (includes targeted exa ms where dose is matched to clinical indication); or iterative reconstruction.
[2024-09-30 11:15] VITALS: BP 180/106; PULSE 76; PULSE 78; RESP 15; TEMP 36.9
[2024-09-30 11:16] VITALS: BP 171/107; PULSE 75; PULSE 79; RESP 18; RESP 24
[2024-09-30] MEDS: Doxycycline Hyclate 100 MG CAP PO (11:49)
[2024-09-30 11:59] VITALS: BP 152/80; PULSE 82; RESP 17; TEMP 36.6; O2SAT 97
== END 2024-09-30 12:07 | disposition home or self-care (01) ==
PROVIDERS: Emergency Provider Physician Assistant; PCP Family Medicine
DX: J18.9 Pneumonia, unspecified organism (principal); I48.20 Chronic atrial fibrillation, unspecified; I45.19 Other right bundle-branch block; I71.21 Aneurysm of the ascending aorta, without rupture; J84.9 Interstitial pulmonary disease, unspecified; Z95.0 Presence of cardiac pacemaker; Z79.01 Long term (current) use of anticoagulants; Z87.891 Personal history of nicotine dependence
CPT/HCPCS: 71275; 80053; 83690; 87637; 93005; 99285; 71046; 74174; 83735; 83880; 84484; 85025; 85379; 85610; 85730; 93010; 99284

== ENCOUNTER → 2024-10-12 11:05 | Outpatient (BNVA) | payer MEDICARE, SELFPAY | PROVIDERS: PCP Family Medicine; Referring Provider Family Medicine; Visit Provider Physician Assistant Surgical | DX: J84.10 Pulmonary fibrosis, unspecified (principal); Z87.891 Personal history of nicotine dependence | CPT/HCPCS: 99214 ==

== ENCOUNTER 2024-10-21 01:48 | Outpatient (CLI) | payer MEDICARE, SELFPAY ==
[2024-10-24 13:37] LABS: PSA, Ultrasensitive 5.9 ng/mL (<= 6.5)
== END 2024-10-21 01:49 | disposition home or self-care (01) ==
LOC: LBO 01:48
PROVIDERS: PCP Family Medicine; Visit Provider Radiology Radiation Oncology
DX: C61 Malignant neoplasm of prostate (principal)
CPT/HCPCS: 36415; 84153

== ENCOUNTER 2024-10-28 11:42 | Outpatient (CLI) | payer MEDICARE, SELFPAY ==
[2024-11-02 16:56] LABS: Testosterone, Total 662 ng/dL (240-950)
== END 2024-10-28 11:43 | disposition home or self-care (01) ==
LOC: LBO 11:43
PROVIDERS: PCP Family Medicine; Visit Provider Radiology Radiation Oncology
DX: C61 Malignant neoplasm of prostate (principal)
CPT/HCPCS: 36415; 84403

== ENCOUNTER 2024-11-02 00:32 | Outpatient (CLI) | payer MEDICARE, SELFPAY ==
--- NOTE | 2024-11-02 10:55 | DI.RAD_ITS ---
Exam(s) XR CHEST 2V PA LATERAL EXAM: XR CHEST 2V PA LATERAL CLINICAL HISTORY: chest and rt sided low back pain, m54.50 TECHNIQUE: 2D digital imaging was performed. Two views. COMPARISON: CT CT CHEST PE CTA from 09/30/2024 FINDINGS: HEART: Normal size. Pacemaker. Aorta: Not dilated. PULMONARY VASCULATURE: Normal. MEDIASTINUM: Unremarkable. LUNGS: Basilar fibrotic changes. No visible superimposed infiltrate or pulmonary edema. PLEURAL SPACE: No pleural effusion or pneumothorax. BONE:Unremarkable for age. SOFT TISSUES: Unremarkable. IMPRESSION: Basilar pulmonary fibrosis. No acute abnormality. DATA REPOSITORY: RADIATION DOSE DELIVERED:
== END 2024-11-02 00:52 ==
LOC: DI 00:32
PROVIDERS: PCP Family Medicine; Visit Provider Physician Assistant Surgical
DX: J84.10 Pulmonary fibrosis, unspecified (principal)
CPT/HCPCS: 71046

== ENCOUNTER 2024-11-18 00:39 | Outpatient (CLI) | payer MEDICARE, SELFPAY ==
[2024-11-21 16:17] LABS: PSA, Ultrasensitive 5.4 ng/mL (<= 6.5)
[2024-11-23 15:57] LABS: Testosterone, Total 540 ng/dL (240-950)
== END 2024-11-18 00:40 | disposition home or self-care (01) ==
LOC: LBO 00:40
PROVIDERS: PCP Family Medicine; Visit Provider Radiology Radiation Oncology
DX: C61 Malignant neoplasm of prostate (principal)
CPT/HCPCS: 36415; 84153; 84403

== ENCOUNTER → 2025-01-11 13:43 | Outpatient (BNVA) | payer MEDICARE, SELFPAY | PROVIDERS: PCP Family Medicine; Referring Provider Family Medicine; Visit Provider Physician Assistant Surgical | DX: J84.10 Pulmonary fibrosis, unspecified (principal); Z87.891 Personal history of nicotine dependence | CPT/HCPCS: 94664; 99214 ==

== ENCOUNTER 2025-02-24 00:24 | Outpatient (CLI) | payer MEDICARE, SELFPAY ==
[2025-02-24] MEDS: Barium Sulfate 2% W/V-Berry Smoothie 450 ML BTL PO ×2 (11:40→11:58)
[2025-02-24 13:01] LABS: Abs Immature Grans 0.04 10^3/uL (0.0-0.06); Absolute Basophil Count 0.04 10^3/uL (0.0-0.2); Absolute Eosinophil Count 0.09 10^3/uL (0.0-0.7); Absolute Lymphocyte Count 0.72 10^3/uL (1.2-3.4); Absolute Monocyte Count 1.05 10^3/uL (0.1-0.8); Absolute Neutrophil Count 8.27 10^3/uL (1.2-6.7); Basophils % 0.4 %; Eosinophils % 0.9 %; HCT 42.3 % (40.0-50.0); HGB 14.4 g/dL (13.5-17.5); Immature Grans % 0.4 %; Lymphocytes % 7.1 %; MCH 31.7 pg (27.0-33.0); MCV 93 fL (80-95); Monocytes % 10.3 %; Neutrophils % 80.9 %; Platelet Count 240 10^3/uL (130-400); RBC 4.54 10^6/uL (4.36-5.78); RDW 11.7 % (11.8-14.1); RDW-SD 40.2 fL; WBC 10.21 10^3/uL (4.4-10.8)
[2025-02-24 13:17] LABS: ALT 14 U/L (16-63); AST 21 U/L (15-37); Albumin 3.2 g/dL (3.4-5.0); Alkaline Phosphatase 65 U/L (46-116); Anion Gap 7.5 mmol/L (3-11); BUN 11 mg/dL (7-18); Bilirubin, Total 0.9 mg/dL (0.2-1.0); CO2 27.5 mmol/L (21.0-32.0); CREATININE 0.8 mg/dL (0.70-1.30); Calcium 8.9 mg/dL (8.5-10.1); Chloride 97 mmol/L (98-107); Estimated GFR 94.03 (mL/min/1.73m2); Glucose 90 mg/dL (74-106); Potassium 4.2 mmol/L (3.5-5.1); Sodium 132 mmol/L (136-145); Total Protein 7.5 g/dL (6.4-8.2)
[2025-02-24] MEDS: Omnipaque 350 MG/ML 100 ML BTL 75 ML IJ (13:58)
[2025-02-24] MEDS: Normal Saline - Diluent 50 ML VIAL IJ (13:58)
--- NOTE | 2025-02-24 13:59 | DI.CT_ITS ---
Exam(s) CT ABDOMEN PELVIS W EXAM: CT ABDOMEN PELVIS W CLINICAL HISTORY: bilat lower quad abd pain,r10.31,r10.32. TECHNIQUE: Imaging Protocol: Axial computed tomography images with coronal and sagittal reformatted images were created and reviewed CONTRAST MATERIAL: Intravenous: Omnipaque-350 75cc Oral: Yes. Oral contrast was also administered for bowel opacification. COMPARISON: CT CT THORAX ABD/PEL CTA from 09/30/2024 FINDINGS: VISUALIZED LUNG BASES: Findings of chronic bilateral interstitial lung disease again noted. No pleur al effusions. Cardiac pacemaker wires again noted.. ABDOMEN: There is no ascites. LIVER: There are no focal hepatic lesions evident. No dilated intrahepatic ducts. GALLBLADDER/BILIARY: No obvious gallbladder pathology. CBD is not dilated. PANCREAS: No evidence of pancreatic mass nor dilatation of the pancreatic duct. SPLEEN: Spleen is not enlarged. No obvious intrasplenic lesions. Splenic and portal veins are paten t. ADRENALS: Left adrenal gland unremarkable. Small calcification again noted in the right adrenal glan d. KIDNEYS:No cysts evident. No solid renal masses. No calculi nor hydronephrosis.. ABDOMINAL AORTA: Abdominal aorta and iliac arteries are calcified but not enlarged. LYMPH NODES:There is no retroperitoneal nor paraaortic adenopathy. ABDOMINAL WALL: Again noted is a small fat only containing midline umbilical hernia GI: There is no evidence of bowel obstruction, free air, nor abscess. PELVIS: GI: No evidence of appendicitis.Again noted is evidence of prior partial sigmoid resection. There is diverticulosis above the anastomosis. There is some streaking in and around this area more so than previous may be consistent with an element of diverticulitis. However, there are also significant fi ndings in the urinary bladder; see below. LYMPH NODES: There is no intrapelvic nor inguinal adenopathy. REPRODUCTIVE: Prostate size normal. Radiation seeds again noted in the prostate. Seminal vesicles u nremarkable. URINARY BLADDER: The bladder wall is severely thickened, even more so than previous, presently thicke evie to over 1 cm. There is some Latoya fascicular streaking also noted. No abnormal fluid collection. No free air. OSSEOUS: Again noted is multilevel fusion surgery in the lumbar spine L4-5-S1 levels with posterior f usion rods and tri level intrapedicular screws, similar to previous. IMPRESSION: 1. Compared to the prior CT scan of 09/30/2024 there is now severe 3 uniform thickening of the urinar y bladder wall consistent with severe cystitis and there is some perivesicular streaking but no periv esicular fluid collection. In addition to infectious etiology, I note that there are seeds in the pr ostate and therefore there is possibly that findings in the urinary bladder wall may be radiation cys titis related. 2. Partial sigmoid resection again noted. There is still significant diverticulosis of the sigmoid. Some mild streaking in this region adjacent to the bladder but probably from the urinary bladder. N evertheless cannot exclude subtle diverticulitis given the extensive amount of diverticuli in the col on at this level. There is no evidence of abscess. 3. Fusion hardware in the lower lumbar spine again noted. 4. Chronic interstitial fibrotic lung disease again noted in the lung bases. RADIATION DOSE DELIVERED: 313.76mGy.cm Total DLP DATA REPOSITORY: All CT scans at this facility are submitted to the National Radiology Data Registry (NRDR) Dose Index Registry (DIR) with the [employer] (ACR). RADIATION OPTIMIZATION: All CT scans at this facility use at least one of these dose optimization te chniques: automated exposure control; mA and/or kV adjustment per patient size (includes targeted exa ms where dose is matched to clinical indication); or iterative reconstruction.
[2025-02-24 14:14] LABS: Bilirubin Negative (Negative); Blood Negative (Negative); Clarity Clear (Clear); Glucose Negative (Negative); Ketones Trace mg/dL (Negative); Leukocyte Esterase Negative (Negative); Nitrite Negative (Negative); Specific Gravity 1.025 (1.005-1.025); Urobilinogen 0.2 mg/dL (Up to 0.2); pH 5.5 (5-8)
== END 2025-02-24 00:44 ==
LOC: DI 00:24
PROVIDERS: PCP Family Medicine; Visit Provider Family Medicine
DX: K57.30 Diverticulosis of large intestine without perforation or abscess without bleeding (principal); N30.90 Cystitis, unspecified without hematuria
CPT/HCPCS: 80053; 74177; 81003; 85025; J3490

== ENCOUNTER → 2025-03-06 15:17 | Outpatient (BNVA) | payer MEDICARE, SELFPAY | PROVIDERS: PCP Family Medicine; Referring Provider Family Medicine; Visit Provider Nurse Practitioner Gerontology | DX: C61 Malignant neoplasm of prostate (principal); R33.9 Retention of urine, unspecified; N30.40 Irradiation cystitis without hematuria; R39.9 Unspecified symptoms and signs involving the genitourinary system | CPT/HCPCS: 99214; 51798 ==

== ENCOUNTER 2025-04-11 14:36 | Outpatient (CLI) | payer MEDICARE, SELFPAY ==
--- NOTE | 2025-04-11 15:23 | DI.RAD_ITS ---
Exam(s) XR KNEE RT 3V AP,LAT,GATITO EXAM: XR KNEE RT 3V AP,LAT,GATITO CLINICAL HISTORY: EFFUSION, RIGHT KNEE M25.461. TECHNIQUE: 2D digital imaging was performed of the right knee. Three views obtained. AP, lateral and PA tunnel views were obtained. COMPARISON: There are no priors for comparison. FINDINGS: BONES: No acute fracture is present. No bony destructive lesion is seen. JOINTS: The knee is normally aligned. There is a joint effusion present. SOFT TISSUE: There is soft tissue swelling anterior to the patella. Vascular calcifications are present. There are vascular clips posterior to the knee. IMPRESSION: 1. No acute fracture or dislocation. 2. Small joint effusion. 3. Soft tissue swelling anterior to the patella. DATA REPOSITORY: RADIATION DOSE DELIVERED:
== END 2025-04-11 14:56 ==
LOC: DI 14:52
PROVIDERS: PCP Family Medicine; Visit Provider Nurse Practitioner Family
DX: M25.461 Effusion, right knee (principal)
CPT/HCPCS: 73562

== ENCOUNTER 2025-04-11 18:34 | Outpatient (REF) | payer MEDICARE, SELFPAY ==
[2025-04-11 16:48] LABS: C-Reactive Protein 6.64 mg/dL (<or=0.5)
[2025-04-11 16:51] LABS: Abs Immature Grans 0.02 10^3/uL (0.0-0.06); HCT 39.9 % (40.0-50.0); HGB 13.2 g/dL (13.5-17.5); Immature Grans % 0.2 %; MCH 30.5 pg (27.0-33.0); MCHC 33.1 % (32.0-36.0); MCV 92 fL (80-95); MPV 9.3 fL (8.0-11.0); Platelet Count 301 10^3/uL (130-400); RBC 4.33 10^6/uL (4.36-5.78); RDW 12.6 % (11.8-14.1); RDW-SD 42.8 fL; WBC 8.60 10^3/uL (4.4-10.8)
[2025-04-13 10:35] LABS: Lyme Ab w Rflx to Lyme Confirm Negative (Negative)
== END 2025-04-11 18:35 | disposition home or self-care (01) ==
LOC: LBN 18:34
PROVIDERS: PCP Family Medicine; Visit Provider Nurse Practitioner Family
DX: M25.461 Effusion, right knee (principal)
CPT/HCPCS: 85025; 86140; 86618

== ENCOUNTER → 2025-04-12 14:15 | Outpatient (BNVA) | payer MEDICARE, SELFPAY | PROVIDERS: PCP Family Medicine; Referring Provider Family Medicine; Visit Provider Internal Medicine Pulmonary Disease | DX: J84.9 Interstitial pulmonary disease, unspecified (principal); J98.4 Other disorders of lung; R59.0 Localized enlarged lymph nodes; R49.0 Dysphonia; Z87.891 Personal history of nicotine dependence | CPT/HCPCS: 99215; 36415 ==

== ENCOUNTER 2025-04-12 18:43 | Outpatient (REF) | payer MEDICARE, SELFPAY ==
[2025-04-12 20:21] LABS: ESR 31 mm/hr (0-20)
[2025-04-12 23:10] LABS: C-Reactive Protein 6.90 mg/dL (<or=0.5)
[2025-04-14 11:38] LABS: RNP Ab, IgG <6.0 CU (<20.0); Ro60 Ab, IgG <7.0 CU (<20.0); SS-A/Ro, IgG 6.8 CU (<20.0); SS-B (La) Ab, IgG <3.3 CU (<20.0)
[2025-04-17 11:07] LABS: JO 1 Ab, IgG <0.2 U; Scl 70 Antibodies, IgG <0.2 U
== END 2025-04-12 18:44 | disposition home or self-care (01) ==
LOC: LBN 18:43
PROVIDERS: PCP Family Medicine; Visit Provider Internal Medicine Pulmonary Disease
DX: J84.9 Interstitial pulmonary disease, unspecified (principal)
CPT/HCPCS: 85652; 86215; 86140; 86235

== ENCOUNTER 2025-04-18 08:29 | Outpatient (CLI) | payer MEDICARE, SELFPAY ==
--- NOTE | 2025-04-18 06:45 | DI.CT_ITS ---
Exam(s) CT CHEST WO EXAM: CT CHEST WO CLINICAL HISTORY: Interstitial lung disease,J84.9 TECHNIQUE: Imaging Protocol: Axial computed tomography images with coronal and sagittal reformatted images were created and reviewed. Computer aided detection (CAD) was utilized. CONTRAST MATERIAL: Noncontrast COMPARISON: CT CT CHEST HIGH RESOLUTION from 07/20/[address] CHEST PE CTA from 09/30/2024 CR XR CHEST 2V PA LATERAL from 11/02/2024 FINDINGS: Pulmonary parenchyma: No consolidation. No dominant measurable mass. Mfhx-lw-aoptdjbn centrilobular emphysema, greater in the upper lobes. Bulla noted at right medial lower lobe. Smooth thickening of the interstitium greatest at the lung bases where there is mild honeycombing and traction bronchiectasis. Tracheobronchial tree: Mild traction bronchiectasis at the lung bases. Mediastinum and Janel: No dominant adenopathy or fluid collection. Esophagus thick walled. Similar to prior exam. Pleura: No effusion. No pneumothorax. Heart: The heart is not dilated. Severe coronary artery calcifications are seen. Aorta: Ascending aorta dilated at 4.2 cm.. Mild atherosclerotic changes. Pulmonary arteries: Normal diameter. Upper abdomen: No acute findings. Bones: Degenerative changes in the spine. Soft tissues: Pacemaker over left upper chest. IMPRESSION: Lower lobe interstitial changes, progressing toward the lung bases where there is honeycombing and mild traction bronchiectasis. Yllo-tc-wzkcsrvb underlying centrilobular emphysema, greater in the upper lobes. Esophageal wall thickening RADIATION DOSE DELIVERED: 174.89mGy.cm Total DLP DATA REPOSITORY: All CT scans at this facility are submitted to the National Radiology Data Registry (NRDR) Dose Index Registry (DIR) with the [employer] (ACR). RADIATION OPTIMIZATION: All CT scans at this facility use at least one of these dose optimization techniques: automated exposure control; mA and/or kV adjustment per patient size (includes targeted exams where dose is matched to clinical indication); or iterative reconstruction.
== END 2025-04-18 08:49 ==
LOC: DI 08:29
PROVIDERS: PCP Family Medicine; Visit Provider Internal Medicine Pulmonary Disease
DX: J84.9 Interstitial pulmonary disease, unspecified (principal); J47.1 Bronchiectasis with (acute) exacerbation
CPT/HCPCS: 71250

== ENCOUNTER 2025-04-21 21:24 | Outpatient (REF) | payer MEDICARE, SELFPAY ==
[2025-04-24 12:46] LABS: Lyme Ab w Rflx to Lyme Confirm Negative (Negative)
== END 2025-04-21 21:25 | disposition home or self-care (01) ==
LOC: LBN 21:24
PROVIDERS: PCP Family Medicine; Visit Provider Family Medicine
DX: M25.461 Effusion, right knee (principal)
CPT/HCPCS: 86618

== ENCOUNTER 2025-04-25 11:43 | Day surgery (SDC) | payer MEDICARE, SELFPAY ==
[2025-04-25] VITALS (20 sets, daily range): BP systolic 91–157; BP diastolic 68–99; PULSE 51–93; RESP 11–22; TEMP 36.2–36.8; O2SAT 90–99; BMI 22.2
--- NOTE | 2025-04-25 10:40 | ANES.PREOP_ITS ---
General Info Date of Service Date Performed: 04/25/25 Height: 5 ft 9.5 in Weight: 69.4 kg Body Mass Index (BMI): 22.2 Surgical Procedure: Operation Date: 04/25/25 13:10 Proposed Procedure Side Surgeon p Flexible Bronchoscopy Casimiro Madrid MD Meds Allergies and Home Medications Allergies Allergy/AdvReac Type Severity Reaction Status Date / Time bee venom protein (honey bee) Allergy Mild swelling Verified 04/25/25 12:33 of the upper lip. cephalexin Allergy Pt unsure Verified 04/25/25 12:33 what happens Home Medication ?Medication ?Instructions ?Recorded multivitamin (Daily Multi-Vitamin 1 tab PO DAILY ##1 0 06/27/22 tablet) hydrocortisone 2.5 % topical cream 1 applic NV DAILY P RN hemorrhoids 11/10/23 with perineal applicator #30 grams (Anusol-HC) rivaroxaban 20 mg tablet (Xarelto) 20 mg PO DAILY #90 tabs 09/07/24 rosuvastatin 5 mg tablet 5 mg PO DAILY #90 tabs 09/07 budesonide 160 mcg-glycopyr 9 2 inh inhalation BID #10 .7 grams 01/27/25 mcg-formot 4.8 mcg/actuation HFA inhaler (Breztri Aerosphere) epinephrine 0.3 mg/0.3 mL 0.3 mg (0.3 mL) IM ONCE 02/26 10/22 injection, auto-injector (EpiPen anaphylaxis #2 ea 2-Hang) mirtazapine 15 mg tablet 15 mg PO QHS #30 tabs Current Visit Medications: Current Medications Generic Name Dose Route Start Last Admin Trade Name Freq PRN Reason Stop Dose Admin Ringer's Solution 1,000 mls @ 30 mls/hr 04/25/25 06:00 IV 04/25/25 23:59 INFUSION RADHA IV Miscellaneous Supplies 1 each 04/25/25 06:00 Iv Access IV 04/25/25 23:59 DIRECTED RADHA Sodium Chloride 0 ml 04/25/25 06:00 Normal Saline Flush 10 Ml Syr IV 04/25/25 23:59 PRN PRN Sodium Chloride 0 ml 04/25/25 06:00 Normal Saline 10 Ml Vial IJ 04/25/25 23:59 DIRECTED PRN Sterile Water 0 ml 04/25/25 06:00 Water,Injection,Sterile 10 Ml Vial IJ 04/25/25 23:59 DIRECTED PRN [facility] Active Problems Active Problems: Problem Status Onset Code Weakness generalized Acute R53.1 Anxiety Chronic F41.9 Prepatellar effusion of right knee Acute M25.461 Effusion of right knee joint Acute M25.461 Dysphonia Acute R49.0 Mediastinal lymphadenopathy Acute R59.0 Restrictive lung disease Acute J98.4 Interstitial lung disease Acute J84.9 Insomnia Chronic G47.00 Right-sided low back pain without sciatica Chronic M54.50 Former smoker Chronic Z87.891 Stress and adjustment reaction Chronic F43.29 Pulmonary fibrosis Chronic J84.10 Chronic atrial fibrillation Chronic ~06/2024 I48.20 Thoracic aortic aneurysm Chronic I71.20 Prostate cancer Chronic C61 Heavy alcohol use Chronic F10.90 Bilateral sensorineural hearing loss Chronic H90.3 Cardiac pacemaker in situ Chronic Z95.0 Elevated BP without diagnosis of hypertension Chronic R03.0 Tubular adenoma of colon Chronic 07/19/09 D12.6 Raynauds disease Chronic I73.00 Medical History Medical History (Updated 04/21/25 @ 17:38 by Blaire Delgado MD) History of complete AV block Concussion recent fall, hit head, had stiches, ER diagnosed concussion Hx of diverticulitis of colon with perforation 07/2022 Pneumothorax, left Rib fracture Medical History Comments:: Pacemaker placed [place] [facility] [place] per [place]. Surgical History Surgical History Status post Pihl's procedure (~07/2022) History of colostomy reversal (~09/2022) History of colonoscopy with polypectomy (~02/21/22) Status post lumbar spinal fusion (~2010) Status post cardiac pacemaker procedure (~2017) managed by [facility] Status post vascular bypass (~10/2020) to repair right popliteal aneurysm - at [facility]; annual surveillance Tobacco Smoking/Tobacco Use Status: Former Tobacco Use Smokeless tobacco user: other (pipe) Passive smoking exposure: Yes Second hand exposure: Yes Alcohol Alcohol Intake: current Alcohol intake frequency: 0-2 drinks per day Alcohol type: wine and hard liquor Substance Use Substance use: Rarely Substance use type: marijuana Vital Signs and Lab Results Lab Results Complete Blood Count: WBC, (4.4-10.8) 8.60 10^3/uL 04/11/25, 14:00 RBC, (4.36-5.78) 4.33 10^6/uL L 04/11/25, 14:00 Hgb, (13.5-17.5) 13.2 g/dL L 04/11/25, 14:00 Hct, (40.0-50.0) 39.9 % L 04/11/25, 14:00 Plt Count, (130-400) 301 10^3/uL 04/11/25, 14:00 Complete Metabolic Panel: C-Reactive Protein, (<or=0.5) 6.90 mg/dL H 04/12/25, 15:12 Imaging and Studies Imaging and Studies Study information below may be from another EMR and interpreted by another provider. Please see original notes in EMR for more complete details. Echocardiogram Summary: 2020: LVEF 67%, no hemodynamically sig valvular dz. Anesthesia Assessment and Plan Anesthesia History Personal History: No History of Anesthesia Complications Family History: Family History Unknown Exercise Tolerance Exercise Tolerance: Metabolic Equivalents>4 Cardiac & Pulmonary Exam Cardiac Exam: Normal S1/S2 Heart Sounds Pulmonary Exam: Clear Bilateral Breath Sounds Implantable Cardiac Device Does patient have a Pacemaker or an ICD?: Yes Device Casing In Line Setter:: [employer] [id number] RENARD XT DR ORTIZ Reason for Placement:: Complete AV Block Date of Last Device Interrogation:: 12/10/24 Airway Exam Known Difficult Airway: No Mallampati Class: 1 Mouth Opening: Normal (> 3cm) Thyromental Distance: Greater than 3 cm Neck Range of Motion: Full ROM Neck Circumference: Normal Teeth Condition: Normal Dentition ASA Classification ASA Score: ASA 3 Emergency Case?: No NPO Status NPO Status: NPO Clears >2 hours, Solids >8 hours Anesthesia Plan Resuscitation Status: Full Code Anesthesia Technique: General Anesthesia Airway Planned: LMA Monitors Used: Standard Monitors Preoperative Comments:: 74 yo male for bronchoscopy. Sig PMHx: restrictive lung disease/pulmonary fibrosis (breztri. breathing feels good today.), afib (Xarelto), pacer, Raynaud's (pulse ox used on ear in DSU), anxiety, former smoker, occ EtOH. ECG: paced. echo: LVEF 60%, trace AR, mild MR, mild MR. ascending Ao 4.1 cm. PFTs: mild restrictive lung disease, decreased diffusion consistent with ILD. Previous Anes: - colostomy reversal, glide 3 grade 1, easy mask. - colo, prop, natural airway, no issues.
--- NOTE | 2025-04-25 11:56 | W.PM.OP ---
Operative Note Operative Note PRE-OP DIAGNOSIS: Interstitial lung disease POST-OP DIAGNOSIS: same PROCEDURE: Bronchoscopy with bronchoalveolar lavage SURGEON: Casimiro Madrid ANESTHESIA TYPE: General LMA/ETT (Under the direction the anesthesiology team and as per anesthesia record) Refer to Anesthesia Record ESTIMATED BLOOD LOSS: 2 (mL) PATHOLOGY: other (Bronchoalveolar lavage was obtained in the inferior segment of the lingula and posterior segment of the right lower lobe. Samples were sent for bacterial/fungal/AFB cultures, cell count, and cytopathology. Biopsies taken:none) COMPLICATIONS: None Patient was transported to: PACU Patient's condition: stable Indications: Diagnosis of interstitial lung disease Procedure Description: The risks (including bleeding, respiratory failure, and pneumothorax), benefits, and alternatives of the procedure were discussed with the patient and consent was obtained.? A Time Out was held and the above information confirmed. Following the induction of genearl anesthesia, the patient was ventilation through an LMA. The bronchoscope was passed through the LMA. The vocal cords were visualized and lidocaine was topically placed onto the cords. The cords were normal. The scope was then passed into the trachea.?Additional lidocaine was used topically.? A full endobronchial examination was performed.? There was bilateral bronchomalacia at the level of the segmental bronchi. Minimal secretions were present. No endobronchial masses/lesions were seen. 100 mL of saline was injected into the posterior segment of the right lower lobe and only 5 mL was aspirated. The fluid appeared cloudy. 50 mL of saline was injected into the posterior segment of the right lower lobe and 15 mL was aspirated. The fluid appeared cloudy. Additional fluid was suctioned to clear. The Patient was taken to the Endoscopy Recovery area in satisfactory condition. Date of Procedure: 04/25/25
--- NOTE | 2025-04-25 12:24 | W.PM.DSUDISC ---
Date of service: 04/25/25 Discharge Plan Disposition Patient Disposition: Home Condition: Stable Discharge Details Reason For Visit: Bronchoscopy Attending Provider: Casimiro Madrid Primary Care Provider: Blaire Delgado Home Meds and New Rx's Prescriptions: No Action multivitamin [Daily Multi-Vitamin] Tablet 1 tab PO DAILY Qty: 1 rosuvastatin 5 mg tablet 5 mg PO DAILY Qty: 90 3RF Xarelto 20 mg tablet 20 mg PO DAILY Qty: 90 3RF Rx Instructions: must administer with evening meal mirtazapine 15 mg tablet 15 mg PO QHS Qty: 30 2RF hydrocortisone [Anusol-HC] 2.5 % cream with perineal applicator 1 applic SC DAILY PRN (Reason: hemorrhoids) Qty: 30 0RF epinephrine [EpiPen 2-Hang] 0.3 mg/0.3 mL auto-injector 0.3 mg IM ONCE Qty: 2 2RF Rx Instructions: as a single dose; may repeat once Breztri Aerosphere 160-9-4.8 mcg/actuation HFA aerosol inhaler 2 inh inhalation BID Qty: 10.7 12RF Discharge Instructions Instructions: Diagnostic bronchoscopy Additional Instructions: Can resume Xarelto after 24 hours provided you are not coughing up blood. No concerning findings were seen in your airways. We obtained samples from the right lower lobe and left lower lobes. The results could take up to 6 weeks to finalize. We will contact you if any of the cultures are positive. Activity:: Activity as Tolerated Diet:: Nothing to eat or drink for 2 hours post procedure Discharge Orders Discharge Orders: Discharge Order (Routine); Ordered 04/25/25 Ordered By: Casimiro Madrid
[2025-04-25] MEDS: Lactated Ringers 1,000 ML 30 ML IV (12:51)
--- NOTE | 2025-04-25 13:21 | PAPNONF_PTH ---
PATIENT: Isaiah Irizarry LOC: [facility] U#:[id number] AGE/SX: 74/M ROOM: RE04/25/[address]: Casimiro Madrid : 1950 BED: DIS: 04/25/2025 SPEC #: [id number] RECD: 04/25/25 18:09 STATUS: HILDA REQ #: [id number] SILVINA: 04/25/25 13:[address]: Casimiro Madrid DEPT: [facility] Cytology RECD BY: Mary Padilla ENTERED: 04/25/25 18:11 SP TYPE: PRAKASH LOCKE DR: Blaire Delgado Tissues: 1 - BODY FLUID CYTO(NOT S/U/N/EM)[facility] Procedures: BODY FLUID CYTO(NOT SPU/UR/NIP/ENDOM)[facility] Comments: [id number] (TOTAL VOLUME = 5 ml, SENT FRESH) (REFRIGERATED)
[2025-04-25] MEDS: Lidocaine 1% Pres-Free 30 ML VIAL (13:23)
--- NOTE | 2025-04-25 13:48 | W.ANESPOSTOP ---
Postoperative Evaluation Date, Time and Location Date Performed: 04/25/25 Time Performed: 13:52 Patient Location: PACU Vital Signs Most Recent Imported Vital Signs: Most Recent Vital Signs Temp Pulse Resp BP Pulse Ox 36.8 C 60 16 143/99 H 90 L 04/25/25 12:07 04/25/25 12:07 04/25/25 12:07 04/25/25 12:07 04/25/25 12:07 Pain Score Most Recent Pain Score: Most Recent Pain Score Pain Level 0 04/25/25 12:07 Assessment Mental Status: Arousable with meaningful communication Airway and Respiratory Function: Patent airway with normal (patient baseline) respiratory exam (coughing, post bronch. ) Cardiovascular Function: Hemodynamically Stable Hydration Status: Adequately Hydrated Nausea & Vomiting: No Nausea or Vomiting Pain: Pain is tolerable per patient Peripheral Nerve Block: Patient did not receive a nerve block
[2025-04-25 22:12] LABS: Eosinophils Fluid Relative 3 % ((See Note)); Lymphocytes Fluid Relative 14 % ((See Note)); Mono/Macrophage Fluid Relative 34 % ((See Note)); Neutrophils Fluid Relative 49 % ((See Note))
[2025-04-25 22:13] LABS: Eosinophils Fluid Relative 4 % ((See Note)); Lymphocytes Fluid Relative 2 % ((See Note)); Mono/Macrophage Fluid Relative 48 % ((See Note)); Neutrophils Fluid Relative 46 % ((See Note))
== END 2025-04-25 15:00 | disposition home or self-care (01) ==
PROVIDERS: PCP Family Medicine; Visit Provider Internal Medicine Pulmonary Disease
PROC: 0BJ08ZZ Inspection of Tracheobronchial Tree, Via Natural or Artificial Opening Endoscopic (ICD-10-PCS; CPT 31622; principal; 2025-04-25 13:00)
DX: J84.9 Interstitial pulmonary disease, unspecified (principal); J98.09 Other diseases of bronchus, not elsewhere classified; J98.4 Other disorders of lung; Z79.899 Other long term (current) drug therapy; F10.90 Alcohol use, unspecified, uncomplicated; Z95.0 Presence of cardiac pacemaker; Z87.891 Personal history of nicotine dependence
CPT/HCPCS: 31624; 00123; 80162; 87070; 87102; 87107; 87116; 87205; 87206; 88104; J2004; J2371; J2405; J2704

== ENCOUNTER 2025-05-05 13:40 | Outpatient (CLI) | payer MEDICARE, SELFPAY ==
--- NOTE | 2025-05-05 13:15 | DI.CT_ITS ---
Exam(s) CT HEAD WO/W EXAM: CT HEAD WO/W CLINICAL HISTORY: weakness,h/o prostate cancer,mediastinal lymphadenopathy. TECHNIQUE: Imaging Protocol: Both noninfused and contrast infused CT scans of the brain were performed. IV Contrast Dose =100 cc Axial computed tomography images with coronal and sagittal reformatted images were created and reviewed COMPARISON: No exams were available for comparison FINDINGS: There are no skull fractures nor fluid in the visualized paranasal sinuses. There is a prominent ring-enhancing lesion in the right convexity with prominent surrounding edema and mass effect and shift of midline structures approximately 4 mm to the opposite-left side. There is also another lesion in the anterior right side of the elba which measures 6 by 5 mm. There is also a 1.7 by 1.5 cm ring-enhancing lesion on the left side in the para hippocampus region. There is no intracranial hemorrhage evident. IMPRESSION: Bilateral ring enhancing metastatic lesions as described above. The the most significant at this time is in the right frontoparietal region associated with abundant white matter vasogenic edema and mass effect upon the ipsilateral lateral ventricle and 5 mm shift of midline structures towards the opposite side. No evidence of intracranial hemorrhage at this time.. Report called by myself to ordering physician on Thursday05/05/2025 at 3:30 p.m. RADIATION DOSE DELIVERED: 1,778.56mGy.cm Total DLP DATA REPOSITORY: All CT scans at this facility are submitted to the National Radiology Data Registry (NRDR) Dose Index Registry (DIR) with the [employer] (ACR). RADIATION OPTIMIZATION: All CT scans at this facility use at least one of these dose optimization techniques: automated exposure control; mA and/or kV adjustment per patient size (includes targeted exams where dose is matched to clinical indication); or iterative reconstruction.
[2025-05-05 14:29] LABS: ESR 23 mm/hr (0-20)
[2025-05-05 14:43] LABS: C-Reactive Protein 3.14 mg/dL (<or=0.5)
[2025-05-05 14:45] LABS: ALT 19 U/L (16-63); AST 17 U/L (15-37); Albumin 3.2 g/dL (3.4-5.0); Alkaline Phosphatase 60 U/L (46-116); Anion Gap 5.9 mmol/L (3-11); BUN 18 mg/dL (7-18); Bilirubin, Total 0.5 mg/dL (0.2-1.0); CO2 29.1 mmol/L (21.0-32.0); Calcium 9.0 mg/dL (8.5-10.1); Chloride 105 mmol/L (98-107); Estimated GFR 64.25 (mL/min/1.73m2); Glucose 118 mg/dL (74-106); Potassium 4.2 mmol/L (3.5-5.1); Sodium 140 mmol/L (136-145); Total Protein 7.4 g/dL (6.4-8.2)
[2025-05-05] MEDS: Omnipaque 350 MG/ML 500 ML BTL-Imaging package IJ (15:19)
[2025-05-05] MEDS: Normal Saline - Diluent 50 ML VIAL IJ (15:19)
[2025-05-08 11:58] LABS: JO 1 Ab, IgG <0.2 U; Scl 70 Antibodies, IgG <0.2 U
[2025-05-10 12:38] LABS: RNP Ab, IgG <6.0 CU (<20.0); Ro60 Ab, IgG <7.0 CU (<20.0); SS-A/Ro, IgG 3.8 CU (<20.0); SS-B (La) Ab, IgG <3.3 CU (<20.0)
== END 2025-05-05 14:00 ==
PROVIDERS: Internal Medicine Pulmonary Disease; PCP Family Medicine; Visit Provider Family Medicine
DX: R53.1 Weakness (principal); R59.0 Localized enlarged lymph nodes; C61 Malignant neoplasm of prostate; J84.9 Interstitial pulmonary disease, unspecified
CPT/HCPCS: 80053; 85652; 86215; 70470; 82565; 86140; 86235

== ENCOUNTER 2025-05-05 17:30 | Emergency (ER) | payer MEDICARE, SELFPAY ==
[2025-05-05 17:31] VITALS: BP 136/83; PULSE 61; RESP 18; TEMP 36.9; O2SAT 95
[2025-05-05 17:35] VITALS: BP 136/83; PULSE 61; RESP 18; TEMP 36.9; O2SAT 95
--- NOTE | 2025-05-05 18:04 | W.ED.GENAD ---
Discharge Plan Disposition Patient Disposition: Transfer-Acute Inpatient Care Specific Acute Inpt Facility: [facility] Condition: Serious Discharge Details Clinical Impression: Brain compression, Metastasis to brain, Cerebral edema Primary Care Provider: Blaire Delgado ED Provider: Nhoemi Day Home Meds and New Rx's Prescriptions: No Action multivitamin [Daily Multi-Vitamin] Tablet 1 tab PO DAILY Qty: 1 rosuvastatin 5 mg tablet 5 mg PO DAILY Qty: 90 3RF Xarelto 20 mg tablet 20 mg PO DAILY Qty: 90 3RF Rx Instructions: must administer with evening meal mirtazapine 15 mg tablet 15 mg PO QHS Qty: 30 2RF hydrocortisone [Anusol-HC] 2.5 % cream with perineal applicator 1 applic LA DAILY PRN (Reason: hemorrhoids) Qty: 30 0RF epinephrine [EpiPen 2-Hang] 0.3 mg/0.3 mL auto-injector 0.3 mg IM ONCE Qty: 2 2RF Rx Instructions: as a single dose; may repeat once Breztri Aerosphere 160-9-4.8 mcg/actuation HFA aerosol inhaler 2 inh inhalation BID Qty: 10.7 12RF HPI General Mode of arrival: ambulatory. Date/Time Provider Initiated Documentation: 05/05/25 17:42. Limitations to Documentation: no limitations. Information obtained by: patient, RN/MD and old records reviewed. HPI Narrative: 74yo M with hx of prostate cancer, pulmonary fibrosis, pacemaker, presenting from home for followup on outpatient CT results. Has been having weeks of progressive weakness L >R as well as increasing confusion; PCP Dr. Delgado ordered CT which showed metastatic ring enchancing lesions, vasogenic pulmonary edema, and 5mm midline shift. He was advised to present to the ED for further evaluation and neurology consult and so comes today accompanied by his daughter. See [facility] for [place] care. Patient and daughter at bedside report that he has not been his usual self for several weeks. Patient c/o generalized weakness especially his left side. Triage note states r sided rib pain, to me patient denies pain anywhere including ribs/chest. He is otherwise in his usual state of health with no fevers, chills, rash, nasuea, vomiting, chest pain, shortness of breath, numbness, vertigo, vision changes, headache, or other concerns. Related Data Home Medications ?Medication ?Instructions ?Recorded ?Confirmed multivitamin (Daily Multi-Vitamin 1 tab PO DAILY ##1 06/27/22 05/05/25 tablet) hydrocortisone 2.5 % topical cream 1 applic LA DAILY PRN hemorrhoids 11/10/23 05/05/25 with perineal applicator #30 grams (Anusol-HC) rivaroxaban 20 mg tablet (Xarelto) 20 mg PO DAILY #90 tabs 09/07/24 05/05/25 rosuvastatin 5 mg tablet 5 mg PO DAILY #90 tabs 09/07/24 05/05/25 budesonide 160 mcg-glycopyr 9 2 inh inhalation BID #10.7 grams 01/27/25 05/05/25 mcg-formot 4.8 mcg/actuation HFA inhaler (Breztri Aerosphere) epinephrine 0.3 mg/0.3 mL 0.3 mg (0.3 mL) IM ONCE 03/08/25 05/05/25 injection, auto-injector (EpiPen anaphylaxis #2 ea 2-Hang) mirtazapine 15 mg tablet 15 mg PO QHS #30 tabs 04/21/25 05/05/25 Held on 04/25/25. Instructions: Pt Stopped/Never Started Previous Rx's ?Medication ?Instructions ?Recorded hydrocortisone 2.5 % topical cream 1 applic LA DAILY PRN hemorrhoids 11/10/23 with perineal applicator #30 grams (Anusol-HC) rivaroxaban 20 mg tablet (Xarelto) 20 mg PO DAILY #90 tabs 09/07/24 rosuvastatin 5 mg tablet 5 mg PO DAILY #90 tabs 09/07/24 budesonide 160 mcg-glycopyr 9 2 inh inhalation BID #10.7 grams 01/27/25 mcg-formot 4.8 mcg/actuation HFA inhaler (Breztri Aerosphere) epinephrine 0.3 mg/0.3 mL 0.3 mg (0.3 mL) IM ONCE 03/08/25 injection, auto-injector (EpiPen anaphylaxis #2 ea 2-Hang) mirtazapine 15 mg tablet 15 mg PO QHS #30 tabs 04/21/25 Held on 04/25/25. Instructions: Pt Stopped/Never Started Allergies Allergy/AdvReac Type Severity Reaction Status Date / Time bee venom protein (honey bee) Allergy Mild swelling Verified 05/05/25 17:35 of the upper lip. cephalexin Allergy Pt unsure Verified 05/05/25 17:35 what happens General Stated Complaint: GenMedical DAK[place]: 3 Review of Systems Narrative: see HPI Exam Narrative Exam Narrative: General: Alert, well appearing, well nourished, in no acute distress. Head: Normocephalic, atraumatic Neck: Trachea midline, ?Neck supple. ENT: ?MMM.? No oropharygeal lesions or exudate. Chest: Nontender Cardiac: ?RRR, no murmurs appreciated Resp: No respiratory distress. CTAB. Abd: Non-distended Extremities: ?No deformities.? No peripheral edema. Neuro: ? GCS 14 (E4 V4 M6).? PERRL.? EOMI.? Fluent speech, no dysarthria. 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 RLE 3/5 hipflexors/extensors, 4/5 knee flexors/extensors, 5/5 ankle dorsiflexors and planter flexors. Sensation- ?Intact to light touch and symmetric multiple dermatomes including upper and lower extremities Coordination- No dysmetria on finger to nose Reflexes- 2/4 achilles & patellar, no clonus Gait/station: ?Not tested; weak/unsteady CRANIAL NERVES: II: Pupils equal and reactive, III, IV, : EOM intact, no gaze preference or deviation, no nystagmus. V: normal sensation in V1, V2, and V3 segments bilaterally VII: Left facial droop VIII: normal hearing to speech IX, X: normal palatal elevation, no uvular deviation XI: 5/5 head turn and 5/5 shoulder shrug bilaterally XII: midline tongue protrusion Course Vital Signs Vital signs: Vital Signs Temperature 36.9 C 05/05/25 17:31 Pulse 61 05/05/25 17:31 Respiratory Rate 18 05/05/25 17:31 Blood Pressure 136/83 05/05/25 17:31 Pulse Oximetry 95 05/05/25 17:31 Temperature 36.9 C 05/05/25 17:35 Pulse 61 05/05/25 17:35 Respiratory Rate 18 05/05/25 17:35 Blood Pressure 136/83 05/05/25 17:35 Pulse Oximetry 95 05/05/25 17:35 Medical Decision Making 74yo M with hx of prostate cancer, pulmonary fibrosis, pacemaker, presenting from home for followup on outpatient CT results. Has been having weeks of progressive weakness L >R as well as increasing confusion; PCP Dr. Delgado ordered CT which showed metastatic ring enchancing lesions, vasogenic pulmonary edema, and 5mm midline shift. See [facility] for cancer care. Vital signs reassuring on arrival; on exam he does have left facial droop and some left sided weakness (lower > upper). Prior records here reviewed. CT independently reviewed and radiology read below. Labs reviewed; CBC with mild anemia at 12.0, CMP with no actionable abnormalities , Mg normal, coags normal Teleneurology consulted and evaluated patient; discussed extensively with teleneuro who recommended 4mg IV dexamethasone q6 hours and transfer to center with neurosurgery capability. [facility] transfer center contacted; spoke with Dr. Kimble from neurosurgery, agrees with teleneuro assessment and pt accepted transfer to [facility] when next bed available (anticipated within 24 hours). Recommended single dose of 10mg IV dexamethasone as well followed by 4mg q6H. Transfer center subsequently called back shortly thereafter with ready bed. [facility] Medical records reviewed: Yes I reviewed the patient's medical records. Lab Data Lab results reviewed: Yes I reviewed the patient's lab results. Labs: IMPRESSION: Bilateral ring enhancing metastatic lesions as described above. The the most significant at this time is in the right frontoparietal region associated with abundant white matter vasogenic edema and mass effect upon the ipsilateral lateral ventricle and 5 mm shift of midline structures towards the opposite side. No evidence of intracranial hemorrhage at this time.. Quality:SDOH Health Related Social Needs: Health related social needs details lives off grid by choice Critical Care Time Critical Care Time Critical Care Time: Yes Total Critical Care Time: 32 Attestation: Due to a high probability of clinically significant, life threatening deterioration, the patient required my highest level of preparedness to intervene emergently and I personally spent this critical care time directly and personally managing the patient. This critical care time included obtaining a history; examining the patient; pulse oximetry; ordering and review of studies; arranging urgent treatment with development of a management plan; evaluation of patient's response to treatment; frequent reassessment; and, discussions with other providers. This critical care time was performed to assess and manage the high probability of imminent, life-threatening deterioration that could result in multi-organ failure. It was exclusive of separately billable procedures and treating other patients and teaching time. PFSH All Active Problems (Updated 05/05/25 @ 21:49 by Nohemi Day MD) Cerebral edema (Acute) Metastasis to brain (Acute) Brain compression (Acute) Facial droop (Acute) Weakness generalized (Acute) Anxiety (Chronic) Dysphonia (Acute) Mediastinal lymphadenopathy (Acute) Restrictive lung disease (Acute) Interstitial lung disease (Acute) Insomnia (Chronic) Right-sided low back pain without sciatica (Chronic) Former smoker (Chronic) Stress and adjustment reaction (Chronic) Pulmonary fibrosis (Chronic) undergoing evaluation with pulmonology - felt to be NISP vs UIP Chronic atrial fibrillation (Chronic ~06/2024) found on cardiac device check; on xarelto; normal echo Thoracic aortic aneurysm (Chronic) stable on echo Prostate cancer (Chronic) s/p radiation coils - 07/06/24; Lupron Heavy alcohol use (Chronic) Bilateral sensorineural hearing loss (Chronic) Cardiac pacemaker in situ (Chronic) Medtronic [id number] Indication: Sick sinus syndrome Last Interrogation: 11/19/21 Elevated BP without diagnosis of hypertension (Chronic) follows at home - 126/73. Tubular adenoma of colon (Chronic 07/19/09) on colonoscopy in 2008 and 2021 Raynauds disease (Chronic) Medical History (Updated 05/05/25 @ 21:49 by Nohemi Day MD) History of complete AV block Concussion recent fall, hit head, had stiches, ER diagnosed concussion Hx of diverticulitis of colon with perforation 07/2022 Pneumothorax, left Rib fracture Surgical History Status post Phil's procedure (~07/2022) History of colostomy reversal (~09/2022) History of colonoscopy with polypectomy (~02/21/22) Status post lumbar spinal fusion (~2010) Status post cardiac pacemaker procedure (~2017) managed by [facility] Status post vascular bypass (~10/2020) to repair right popliteal aneurysm - at [facility] [place]; annual surveillance Family History Brother , 69 Acute leukemia Social History Smoking/Tobacco Use Status: Former Tobacco Use tobacco type: cigarettes and pipe Quit Date: 09/28/10 Tobacco: How many years used: 30 Smokeless tobacco user: other (pipe) Quit status: quit date established Second Hand Exposure: Yes Smoking risk assessment performed?: Yes Alcohol Intake: current Alcohol Intake frequency: 0-2 drinks per day Alcohol type: wine and hard liquor Drug use: Rarely Substance use type: marijuana Details: Last ETOH 04/24/25 1100 whiskey and water Household members: none Housing: house Number of Children: 3 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 What is your relationship status?: Panel score (0-1 are the most socially isolated patients): 0 Do you feel safe at home: Yes (Lives alone) Do you feel safe in your relationship?: Yes
[2025-05-05 18:19] LABS: Abs Immature Grans 0.02 10^3/uL (0.0-0.06); HCT 35.7 % (40.0-50.0); HGB 12.0 g/dL (13.5-17.5); Immature Grans % 0.3 %; MCH 29.6 pg (27.0-33.0); MCHC 33.6 % (32.0-36.0); MCV 88 fL (80-95); MPV 8.5 fL (8.0-11.0); Platelet Count 233 10^3/uL (130-400); RBC 4.05 10^6/uL (4.36-5.78); RDW 13.0 % (11.8-14.1); RDW-SD 42.3 fL; WBC 6.82 10^3/uL (4.4-10.8)
[2025-05-05 18:35] LABS: ALT 18 U/L (16-63); AST 16 U/L (15-37); Albumin 3.1 g/dL (3.4-5.0); Alkaline Phosphatase 58 U/L (46-116); Anion Gap 5.3 mmol/L (3-11); BUN 18 mg/dL (7-18); Bilirubin, Total 0.4 mg/dL (0.2-1.0); CO2 29.7 mmol/L (21.0-32.0); Calcium 8.8 mg/dL (8.5-10.1); Chloride 104 mmol/L (98-107); Estimated GFR 71.32 (mL/min/1.73m2); Glucose 108 mg/dL (74-106); Magnesium 1.8 mg/dL (1.8-2.4); Potassium 3.7 mmol/L (3.5-5.1); Sodium 139 mmol/L (136-145); Total Protein 7.0 g/dL (6.4-8.2)
[2025-05-05 20:46] LABS: INR 1.2 (0.9-1.1); PTT Activated 34.4 sec (20.6-30.2); Prothrombin Time 11.6 sec (9.1-11.1)
[2025-05-05 21:01] VITALS: BP 156/98; PULSE 75; TEMP 37; O2SAT 100
[2025-05-05] MEDS: Dexamethasone 10 MG/ML VIAL IVP (21:01)
[2025-05-05] MEDS: Acetaminophen 325 MG TAB 650 MG PO (21:58)
[2025-05-05 22:16] VITALS: RESP 16
== END 2025-05-05 22:30 | disposition short-term general hospital (02) ==
PROVIDERS: Emergency Provider Student in an Organized Health Care Education/Training Program; PCP Family Medicine
DX: C79.31 Secondary malignant neoplasm of brain (principal); G93.6 Cerebral edema; G93.5 Compression of brain; R53.1 Weakness
CPT/HCPCS: 99285 ×2; 96374; 36415; 80053; 85652; 86215; 70470; 83735; 85025; 85610; 85730; 86140; 86235; J1100